=== PATIENT | female | born 1990 | race Caucasian/White ===

== ENCOUNTER 2023-09-17 21:39 | Outpatient (REF) | payer BC, SELFPAY | END 2023-09-17 21:40 | disposition home or self-care (01) | LOC: LAB 21:39 | PROVIDERS: PCP Family Medicine; Visit Provider Obstetrics & Gynecology | DX: Z01.419 Encounter for gynecological examination (general) (routine) without abnormal findings (principal) | CPT/HCPCS: 88175 ==

== ENCOUNTER 2023-09-24 08:44 | Outpatient (OUT) | payer BC, SELFPAY ==
--- NOTE | 2023-09-24 08:52 | US_ITS ---
The [address] [address] Patient Name: BROOK WILD MRN: [id number] date: 1990 Sex: F Assigned Patient Location: [facility] Current Patient Location: Accession/Order Number: [id number] Exam Date: 09/24/2023 08:52 Report Date: 09/26/2023 04:59 At the request of: TREVOR MAHARAJ Procedure: US pelvis w/ transvaginal EXAMINATION: US pelvis w/ transvaginal HISTORY: PELVIC PAIN , intermittent COMPARISON: Ultrasound pelvis 07/09/2022 TECHNIQUE: Transabdominal and/or transvaginal sonographic examination was performed as indicated by examination type. FINDINGS: UTERUS: Normal size and appearance. Uterus size: 8.1 x 4.1 x 4.4 cm ENDOMETRIUM: No definite IUD seen within the endometrial cavity, however, there is posterior shadowing suggestive of an IUD. Endometrium is normal thickness, 8 mm. Endometrial thickness: 8 mm RIGHT OVARY: Normal size and appearance. Blood flow present within ovary on color Doppler. Ovary size: 2.8 x 1.1 x 2.7 cm LEFT OVARY: Normal size and appearance. Blood flow present within ovary on color Doppler. Ovary size: 2.4 x 2.5 x 2.8 cm CUL-DE-SAC: Unremarkable. No significant free fluid. BLADDER: Unremarkable. OTHER: None. US/US pelvis w/ transvaginal IMPRESSION: 1. An IUD is not clearly identified within the uterus, however, there is posterior shadowing from the uterus which is new compared prior study and is most suggestive of an IUD within the endometrial cavity. Consider follow-up ultrasound in 2-[address] imaging of the pelvis if indicated. 2. Unremarkable ovaries. Electronically authenticated by: TIAGO VIEYRA Date: 09/26/2023 04:59
--- OUTSIDE RECORDS SUMMARY | 2023-09-24 08:57 | XMS_ITS ---
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 Name Role Phone Radsugey, Edward Admitting Unavailable Radatz, Hermelindoward Attending Unavailable CanCarri christianson Primary Care Unavailable Radatz, Edward Admitting Unavailable Radatz, Hermelindoward Attending Unavailable Can, Carri Nielsen Primary Care Unavailable BRYANT, DR FORTINO Amador Consulting Unavailable CAN ., DR CARRI Nielsen Primary Care Unavailable HAY ., DR ANDRADE Admitting Unavailable HAY ., DR ANDRADE Attending Unavailable HAY ., DR ANDRADE Consulting Unavailable DORIAN SHARMA Consulting Unavailable CAROL ANN ., DR MURRAY Attending Unavailable CAROL ANN ., DR MURRAY Admitting Unavailable CAN ., DR CARRI Nielsen Primary Care Unavailable CAROL ANN ., DR MURRAY Attending Unavailable CAROL ANN ., DR MURRAY Admitting Unavailable CAROL ANN ., DR MURRAY Consulting Unavailable CAN ., DR CARRI Nielsen Primary Care Unavailable CAROL ANN ., DR MURRAY Attending Unavailable CAROL ANN ., DR MURRAY Admitting Unavailable CAROL ANN ., DR MURRAY Consulting Unavailable CAN ., DR CARRI Nielsen Primary Care Unavailable KENNY PATEL Consulting Unavailable TOY CHOW Consulting Unavailable CAROL ANN ., DR MURRAY Attending Unavailable CAROL ANN ., DR MURRAY Admitting Unavailable CAROL ANN ., DR MURRAY Consulting Unavailable CAN ., DR CARRI Nielsen Primary Care Unavailable CAROL ANN ., DR MURRAY Attending Unavailable CAROL ANN ., DR MURRAY Admitting Unavailable CAROL ANN ., DR MURRAY Consulting Unavailable CAN ., DR CARRI Nielsen Primary Care Unavailable CAROL ANN ., DR MURRAY Attending Unavailable CAROL ANN ., DR MURRAY Admitting Unavailable CAN ., DR CARRI Nielsen Primary Care Unavailable CAROL ANN ., DR MURRAY Consulting Unavailable CAROL ANN ., DR MURRAY Attending Unavailable CAROL ANN ., DR MURRAY Admitting Unavailable CAN ., DR CARRI Nielsen Primary Care Unavailable CAROL ANN ., DR MURRAY Consulting Unavailable CAROL ANN ., DR MURRAY Attending Unavailable CAROL ANN ., DR MURRAY Admitting Unavailable CAROL ANN ., DR MURRAY Consulting Unavailable CAN ., DR CARRI Nielsen Primary Care Unavailable CAROL ANN ., DR MURRAY Attending Unavailable CAROL ANN ., DR MURRAY Admitting Unavailable CAN ., DR CARRI Nielsen Primary Care Unavailable CAROL ANN ., DR MURRAY Consulting Unavailable ZIEBER, DR TIAGO Amador Consulting Unavailable REQUEST, DR CLARISSA LISTED Consulting Unavailmohan HURTADO, DR FORTINO Amador Consulting Unavailable BRYANT, DR FORTINO Amador Attending Unavailable STEF ., DR CARRI Nielsen Primary Care Unavailable BRYANT, DR FORTINO Amador Admitting Unavailable LEROY, ADITYA Consulting Unavailable LEROY, ADITYA Attending Unavailable LEROY, ADITYA Admitting Unavailable CAN ., DR CARRI Nielsen Primary Care Unavailable Ludivina Mac Unavailable ALEK POSEY Attending Unavailable CAROL ANN, TREVOR Attending Unavailable Encounters Encounter Date Encounter Type Care Provider Facility Start: 09-17-2023 End: 09-17-2023 ambulatory TREVOR KILLIAN Not Available Start: 08-25-2023 End: 08-25-2023 ambulatory ALEK POSEY Not Available Start: 07-21-2023 End: 07-21-2023 ambulatory [facility] Work Phone: Start: 07-21-2023 End: 07-21-2023 Patient encounter procedure [facility] Work Phone: Start: 09-06-2022 End: 09-06-2022 ambulatory Ludivina Mac Other [facility] Other Start: 09-06-2022 Office outpatient ne w 30 minutes Ludivina Mac [facility] Start: 07-09-2022 End: 07-10-[address] TREVOR KILLIAN . Facility:[facility] Start: 07-03-2022 Encounter for cervic al smear to confirm findings of recent normal smear following initial abnormal smear DR TREVOR KILLIAN . [facility] Start: 07-02-2022 End: 07-02-[address] TREVOR KILLIAN . Facility:[facility] Start: 07-02-2022 End: 07-02-2022 Encounter for cervical smear to confirm findings of recent normal smear following initial abnormal smear DR TREVOR KILLIAN . Facility:[facility] Start: 07-02-2022 End: 07-03-[address] TREVOR KILLIAN . Facility:[facility] Start: 03-28-2022 End: 03-28-[address] FORTINO HURTADO Facility:[facility] Start: 03-05-2022 End: 03-05-[address] TREVOR KILLIAN . Facility:[facility] Start: 11-09-2021 End: 11-09-[address] TREVOR KILLIAN . Facility:[facility] Start: 11-06-2021 Encounter for preprocedural laboratory examination DR TREVOR KILLIAN . [facility] Start: 11-03-2021 End: 11-03-2021 ambulatory ADITYA HARPER Facility:[facility] Start: 10-31-2021 End: 11-01-[address] TREVOR KILLIAN . Facility:[facility] Start: 10-31-2021 End: 11-01-2021 Encounter for preprocedural laboratory examination DR TREVOR KILLIAN . Facility:[facility] Start: 10-30-2021 Encounter for other preprocedural examination DR TREVOR KILLIAN . [facility] Start: 10-30-2021 End: 10-30-[address] FORTINO HURTADO Facility:[facility] Start: 10-25-2021 End: 10-26-[address] TREVOR KILLIAN . Facility:[facility] Start: 10-25-2021 End: 10-26-2021 Encounter for other preprocedural examination DR TREVOR KILLIAN . Facility:[facility] Start: 09-05-2021 End: 09-05-[address] TREVOR KILLIAN . Facility:[facility] Start: 07-12-2018 End: 07-12-2018 Emergency department patient visit [place] Facility:[facility] Start: 06-28-2018 End: 06-28-2018 Emergency department patient visit [place] Facility:[facility] Medications Current Medications Medication Drug Class(es) Dates Sig (Normalized) Sig (Original) amitriptyline hydrochloride 25 mg oral tablet (1 source) Tricyclic Antidepressant Start: 07-21-2023 Amitriptyline Active MG PO July 21, 2023 12:00am amoxicillin 500 mg oral capsule (3 sources) Penicillin-class Antibacterial Start: 07-21-2023 take 500 mg by mouth three times daily Amoxicillin Active 500 MG PO Three times daily 21 July 21, 2023 12:00am Start: 06-28-2018 End: 07-08-2018 take 500 mg by mouth three times daily Amoxicillin Discontinued 500 MG PO Three times daily 30 June 28, 2018 12:00am July 08, 2018 12:02am take 1 tablet by keisha th every eight hours Amoxicillin 500 MG TAKE 1 TABLET BY MOUTH EVERY 8 HOURS Oral for 10 Days Not-Taking Qkzrxsbdyi-Vztrdffnkynto-Ufv f (1 source) Start: 07-21-2023 Rhyiokmlwg-Wjlwcznjbpzpz-Jqp f Active TAB PO July 21, 2023 12:00am hydrocortisone 10 mg/ml / neomycin 3.5 mg/ml / polymyxin b [id number] unt/ml otic suspension (1 source) Aminoglycosid e Antibacterial , Polymyxin-cla ss Antibacterial , Corticosteroi d Start: 07-21-2023 Ukhtbrly-Zmiywpumi-Tx Active 3 DROPS OTIC Three times daily July 21, 2023 12:00am left ear methylPREDNISolone 4 mg oral tablet (2 sources) Corticosteroi d Start: 09-06-2022 methylPREDNISolone 4 MG as directed Orally for daily dose take half with breakfast, half with dinner for 6 days Sep, Active Completed/Discontinued Medications Medication Drug Class(es) Dates Sig (Normalized) Sig (Original) acetaminophen 325 mg / HYDROcodone bitartrate 5 mg oral tablet (1 source) Opioid Agonist take 1 tablet by mouth every four to six hours as needed HYDROcodone-Acetam inophen 5-325 MG TAKE 1 TABLET BY MOUTH EVERY 4-6 HOURS NEEDED Oral for 7 Days Not-Taking {21 (ethinyl estradiol 0.035 MG / norgestimate 0.25 MG Oral Tablet) / 7 (inert ingredients 1 MG Oral Tablet) } Pack [[place] 28 Day] (1 source) Progestin, Estrogen [place] 0.25-35 MG-MCG Oral for 28 Days Not-Taking fluconazole 150 mg oral tablet (2 sources) Azole Antifungal Start: 07-12-2018 End: 07-21-2023 take 1 tablet by mouth once Fluconazole (Diflucan) 150 mg tablet Discontinued 150 MG PO Once 1 July 12, 2018 12:00am July 21, 2023 1:08pm as a single dose take 1 tablet by keisha th once, then take 1 tablet by mouth every week Fluconazole 200 MG TAKE 1 TABLET BY MOUT H as a one time dose may repeat in 1 (ONE) week Oral for 1 Days Not-Taking ibuprofen 600 mg oral tablet (1 source) Nonsteroidal Anti-inflammatory Drug Start: 06-28-2018 End: 07-12-2018 Ibuprofen Discontinued 600 MG PO every 6 to 8 hours June 28, 2018 12:00am July 12, 2018 1:04pm medroxyPROGESTERone acetate 10 mg oral tablet (1 source) Progestin medroxyPROGESTER one Acetate 10 MG Oral for 14 Days Not-Taking nitrofurantoin, macrocrystals 100 mg oral capsule (1 source) Nitrofuran Antibacterial Start: 07-12-2018 End: 07-21-2023 take 1 capsule by mouth twice daily at mealtime Nitrofurantoin Macrocrystal (Macrodantin) 100 mg capsule Discontinued 100 MG PO Twice daily July 12, 2018 12:00am July 21, 2023 1:08pm must administer with a meal/food phenazopyridine hydrochloride 200 mg oral tablet (1 source) Start: 07-12-2018 End: 07-14-2018 take 1 tablet by mouth three times daily Phenazopyridine (Pyridium) 200 mg tablet Discontinued 200 MG PO Three times daily 6 2 July 12, 2018 12:00am July 14, 2018 12:02am Payers Date Payer Category Payer Self-pay 1990 Unknown [id number] 1990 Unknown [id number] 1990 Unknown [id number] 1990 Unknown [id number] 1990 Unknown [id number] [id number] 1990 Unknown [id number] [id number] 1990 Unknown [id number] [id number] 1990 Unknown [id number] [id number] 1990 Unknown [id number] [id number] 1990 Unknown [id number] [id number] 1990 Unknown [id number] [id number] 1990 Unknown [id number] [id number] 1990 Unknown [id number] [id number] 1991 Unknown [id number] [id number] 1959 Unknown [id number] 1958 Unknown [id number] Medicaid [facility] [id number] Unknown [id number] Unknown [id number] Problems Active Problems Problem Classification Problem Date Documented Date Episodic/Chronic Cancer of cervix (11 sources) Atypical squamous cells of undetermined significance on cytologic smear of cervix (ASC-US); Translations: [Atypical squamous cells cannot exclude high grade squamous intraepithelial lesion on cytologic smear of cervix (ASC-H)] Onset: 10-30-2021 Episodic Menstrual disorders (6 sources) Irregular menstruation, unspecified; Translations: [Excessive and frequent menstruation with regular cycle] Onset: 01-28-2022 Chronic Other female genital disorders (1 source) Unspecified dyspareunia; Translations: [UNSPECIFIED DYSPAREUNIA] Onset: 01-28-2022 Chronic Other upper respiratory infections (2 sources) Acute pharyngitis, unspecified; Translations: [ACUTE PHARYNGITIS UNSPECIFIED] Onset: 11-01-2021 Episodic Otitis media and related conditions (2 sources) Otitis media, unspecified, left ear; Translations: [Other acute nonsuppurative otitis media, bilateral] Onset: 11-05-2021 Episodic Unclassified (1 source) CONTACT W/AND (SUSP) EXPOS COVID-19; Translations: [CONTACT W/AND (SUSP) EXPOS COVID-19] Onset: 11-06-2021 Past or Other Problems Problem Classification Problem Date Documented Date Episodic/Chronic Abdominal pain (4 sources) Left lower quadrant pain; Translations: [LEFT LOWER QUADRANT PAIN] Onset: 03-28-2022 Episodic Fever of unknown origin (4 sources) Fever, unspecified; Translations: [FEVER UNSPECIFIED] Onset: 10-30-2021 Episodic Immunizations and screening for infectious disease (1 source) Encounter for screening for human papillomavirus (HPV); Translations: [ENC SCREENING HUMAN PAPILLOMAVIRUS] Onset: 09-10-2021 Episodic Other ear and sense organ disorders (3 sources) Otalgia, left ear; Translations: [OTALGIA LEFT EAR] Onset: 11-03-2021 Episodic Other screening for suspected conditions (not mental disorders or infectious disease) (4 sources) Encounter for screening for malignant neoplasm of cervix; Translations: [ENC SCREENING MALIG NEOPLASM CERV] Onset: 09-05-2021 Episodic Sexually transmitted infections (not HIV or hepatitis) (1 source) Cervical high risk human papillomavirus (HPV) DNA test positive; Translations: [CERVICAL HIGH RISK HPV DNA TEST POS] Onset: 03-09-2022 Episodic Results Test Name Value Interpretation Reference Range Facility [facility] 09-06-2022 S. pyogenes Org specific cx Ql (Throat) Negative [facility] Other [facility] Other FSHon 07-10-2022 FSH 7.5 mIU/mL Normal [facility] Comment on above: Result Comment: Adul t Female: Follicular phase 3.5 - 12.5 Ovulation phase 4.7 - 21.5 Luteal phase 1.7 - 7.7 Postmenopausal 25.8 - 134.8 Performed By: #### C VDTBH #### [facility] [address] [place] [address] Dr. Joy Vargas LUTEINIZING HORMONE (LH)on 0 07-10-2022 LH 19.8 mIU/mL Normal [facility] Comment on above: Result Comment: Adul t Female: Follicular phase 2.4 - 12.6 Ovulation phase 14.0 - 95.6 Luteal phase 1.0 - 11.4 Postmenopausal 7.7 - 58.5 Performed By: #### L BCLH #### [facility] [address] [place] [address] Dr. Joy Vargas PROLACTINon 07-10-2022 Prolactin 8.0 ng/mL Normal 4.8-23.3 [facility] Comment on above: Performed By: #### C VDTBH #### [facility] [address] [place] [address] Dr. Joy Vargas CBC AUTO DIFFon 07-09-2022 BASO # 0.1 103/ul Normal 0.0-0.1 [facility] Comment on above: Performed By: #### C VDTBH #### [facility] [address] [place] [address] Dr. Joy Vargas Basophils/100 WBC (Bld) 0.6 % Normal 0.2-2.0 [facility] Comment on above: Performed By: #### C VDTBH #### [facility] [address] [place] [address] Dr. Joy Vargas EO # 0.1 103/ul Normal 0.0-0.7 [facility] Comment on above: Performed By: #### C VDTBH #### [facility] [address] [place] [address] Dr. Joy Vargas Eosinophils/100 WBC (Bld) 1.1 % Normal 0.9-7.0 [facility] Comment on above: Performed By: #### C VDTBH #### [facility] [address] [place] [address] Dr. Joy Vargas Erythrocyte distribution width (RBC) [Ratio] 14.0 % Normal 11.0-15.0 [facility] Comment on above: Performed By: #### C VDTBH #### [facility] [address] [place] [address] Dr. Joy Vargas Hematocrit (Bld) [Volume fraction] 36.8 % Normal 36.0-48.0 [facility] Comment on above: Performed By: #### C VDTBH #### [facility] [address] [place] [address] Dr. Joy Vargas Hemoglobin (Bld) [Mass/Vol] 12.0 g/dL Normal 12.0-16.0 [facility] Comment on above: Performed By: #### C VDTBH #### [facility] [address] [place] [address] Dr. Joy Vargas IG # 0.01 10e3/ul Normal 0.00-0.03 [facility] Comment on above: Performed By: #### C VDTBH #### [facility] [address] [place] [address] Dr. Joy Vargas IG % 0.1 % Normal 0.0-0.5 [facility] Comment on above: Performed By: #### C VDTBH #### [facility] [address] [place] [address] Dr. Joy Vargas LYMPH # 2.6 103/ul Normal 1.2-3.8 [facility] Comment on above: Performed By: #### C VDTBH #### [facility] [address] [place] [address] Dr. Joy Vargas Lymphocytes/100 WBC (Bld) 32.2 % Normal 20.5-60.0 [facility] Comment on above: Performed By: #### C VDTBH #### [facility] [address] [place] [address] Dr. Joy Vargas MANUAL DIFF REQ NO Normal [facility] Comment on above: Performed By: #### C VDTBH #### [facility] [address] [place] [address] Dr. Joy Vargas MCH (RBC) [Entitic mass] 27.0 pg Normal 26.7-34.[address] [facility] Comment on above: Performed By: #### C VDTBH #### [facility] [address] [place] [address] Dr. Joy Vargas MCHC (RBC) [Mass/Vol] 32.6 g/dL Normal 29.9-35.[address] [facility] Comment on above: Performed By: #### C VDTBH #### [facility] [address] [place] [address] Dr. Joy Vargas MCV (RBC) [Entitic vol] 82.9 fL Normal 81.0-99.[address] [facility] Comment on above: Performed By: #### C VDTBH #### [facility] [address] [place] [address] Dr. Joy Vargas MONO # 0.5 103/ul Normal 0.3-0.[address] [facility] Comment on above: Performed By: #### C VDTBH #### [facility] [address] [place] [address] Dr. Joy Vargas Monocytes/100 WBC (Bld) 5.8 % Normal 1.7-12.[address] [facility] Comment on above: Performed By: #### C VDTBH #### [facility] [address] [place] [address] Dr. Joy Vargas NEUT # 4.8 103/ul Normal 1.4-6.[address] [facility] Comment on above: Performed By: #### C VDTBH #### [facility] [address] [place] [address] Dr. Joy Vargas Neutrophils/100 WBC (Bld) 60.2 % Normal 43.0-75.[address] [facility] Comment on above: Performed By: #### C VDTBH #### [facility] [address] [place] [address] Dr. oJy Vargas Platelet mean volume (Bld) [Entitic vol] 10.0 fL Normal 9.5-13.[address] [facility] Comment on above: Performed By: #### C VDTBH #### [facility] [address] [place] [address] Dr. Joy Vargas PLT 321 103/ul Normal 150-450 [facility] Comment on above: Performed By: #### C VDTBH #### [facility] [address] [place] [address] Dr. Joy Vargas RBC 4.44 106/ul Normal 4.20-5.40 [facility] Comment on above: Performed By: #### C VDTBH #### [facility] [address] [place] [address] Dr. Joy Vargas WBC 7.9 103/ul Normal 4.0-11.0 [facility] Comment on above: Performed By: #### C VDTBH #### [facility] [address] [place] [address] Dr. Joy Vargas FREE T4on 07-09-2022 Free T4 [Mass/Vol] 0.99 ng/dL Normal 0.76-1.46 [facility] Comment on above: Performed By: #### C VDTBH #### [facility] [address] [place] [address] Dr. Joy Vargas Pap IG,rfx Aptima HPV all pt hon 07-09-2022 . . Normal [facility] Comment on above: Performed By: #### C VDTBH #### [facility] [address] [place] [address] Dr. Joy Vargas DIAGNOSIS: Comment Normal [facility] Comment on above: Result Comment: NEGA TIVE FOR INTRAEPITHELIAL LESION OR MALIGNANCY. Performed By: #### C VDTBH #### [facility] [address] [place] [address] Dr. Joy Vargas Methodology: Comment Normal [facility] Comment on above: Result Comment: This liquid based ThinPrep(R) pap test was screened with the use of an image guided system. Performed By: #### C VDTBH #### [facility] [address] [place] [address] Dr. Joy Vargas Note: Comment Normal [facility] Comment on above: Result Comment: The Pap smear is a screening test designed to aid in the detection of premalignant and malignant conditions of the uterine cervix. It is not a diagnostic procedure and should not be used as the sole means of detecting cervical cancer. Both false-positive and false-negative reports do occur. . Performed By: #### C VDTBH #### [facility] [address] [place] [address] Dr. Joy Vargas Performed by: Comment Normal [facility] Comment on above: Result Comment: James Tony, Exchange Architect (ASCP) Performed By: #### C VDTBH #### [facility] [address] [place] [address] Dr. Joy Vargas Reflex Criteria: Comment Normal [facility] Comment on above: Result Comment: The HPV DNA reflex criteria were not met with this specimen result therefore, no HPV testing was performed. . Performed By: #### C VDTBH #### [facility] [address] [place] [address] Dr. Joy Vargas Specimen adequacy: Comment Normal [facility] Comment on above: Result Comment: Sati sfactory for evaluation. Endocervical and/or squamous metaplastic cells (endocervical component) are present. Performed By: #### C VDTBH #### [facility] [address] [place] [address] Dr. Joy Vargas TSHon 07-09-2022 TSH 1.495 uIU/mL Normal 0.358-3.740 [facility] Comment on above: Performed By: #### T #### [facility] [address] [place] [address] Dr. Joy Vargas US PELVIS AND TRANSVAGon US PELVIS AND TRANSVAG EXAMINATION: US PELVIS AND TRANSVAG HISTORY: Irregular periods COMPARISON: No relevant comparison available. TECHNIQUE: Transabdominal and transvaginal sonographic examination. FINDINGS: UTERUS: Normal size and appearance. Uterus size: 8.4 x 3.8 x 4.5 cm ENDOMETRIUM: Normal homogeneous appearance. Endometrial thickness: 5 mm RIGHT OVARY: Normal size and appearance. Duplex Doppler demonstrates normal waveform and flow; resistive index 0.4. Ovary size: 3.1 x 1.6 x 2.8 cm LEFT OVARY: Normal size and appearance. Blood flow present within ovary on color Doppler. Ovary size: 2.5 x 1.9 x 2.3 cm CUL-DE-SAC: Unremarkable. No significant free fluid. BLADDER: Unremarkable. OTHER: None. IMPRESSION: 1. Unremarkable pelvic ultrasound. No findings to account for patient's symptoms. Electronically authenticated by: TIAGO VIEYRA Date: 2022-07-09 13:57 Normal [facility] PREG QUANT HCGon 07-02-2022 HCG QUANT <1 Normal [facility] Comment on above: Performed By: #### P REGQNT #### [facility] [address] [place] [address] Dr. Joy Vargas HCG RANGE SEE BELOW Normal [facility] Comment on above: Result Comment: 5-50 0.2-1 WEEK 50-500 1-2 WEEKS 100-5,000 2-3 WEEKS 500-10,000 3-4 WEEKS 1,000-50,000 4-5 WEEKS 10,000-100,000 5-6 WEEKS 15,000-200,000 6-8 WEEKS 10,000-100,000 2-3 MONTHS Performed By: #### P REGQNT #### [facility] [address] [place] [address] Dr. Joy Vargas ER URINE PROFILEon 2 Bilirubin Ql (U) Negative Normal NEGATIVE [facility] Comment on above: Performed By: #### MIRANDA AMANDA ERUR #### [facility] [address] [place] [address] Dr. Joy Vargas Clarity (U) CLEAR Normal CLEAR [facility] Comment on above: Performed By: #### MIRANDA AMANDA ERUR #### [facility] [facility] [address] [place] [address] Dr. Joy Vargas Color (U) LT. YELLOW Normal YELLOW [facility] Comment on above: Performed By: #### MIRANDA AMANDA, ERUR #### [facility] [address] [place] [address] Dr. Joy ADEND A micrscopic examination will be performed if indicated. Normal [facility] Comment on above: Performed By: #### P REGU, UMICRO, ERUR #### [facility] [address] [address] [address] Joy Vargas Glucose Ql (U) Negative Normal NEGATIVE [facility] Comment on above: Performed By: #### P REGU, UMICRO, ERUR #### [facility] [address] [address] [address] Joy Vargas Hemoglobin Ql (U) TRACE-INTACT Abnormal NEGATIVE [facility] Comment on above: Performed By: #### P REGU, UMICRO, ERUR #### [facility] [address] [address] [address] Joy Vargas Ketones Ql (U) Negative Normal NEGATIVE [facility] Comment on above: Performed By: #### P REGU, UMICRO, ERUR #### [facility] [address] [address] [address] Joy Vargas LEUKOCYTES SMALL Abnormal NEGATIVE [facility] Comment on above: Performed By: #### P REGU, UMICRO, ERUR #### [facility] [address] [address] [address] Joy Vargas Nitrite Ql (U) Negative Normal NEGATIVE [facility] Comment on above: Performed By: #### P REGU, UMICRO, ERUR #### [facility] [address] [address] [address] Joy Vargas pH (U) 6.0 [pH] Normal 5-9 [facility] Comment on above: Performed By: #### P REGU, UMICRO, ERUR #### [facility] [address] [address] [address] Joy Vargas SPEC GRAVITY 1.025 Normal 1.005-<=1.025 [facility] Comment on above: Performed By: #### P REGU, UMICRO, ERUR #### [facility] [address] [address] [address] Joy Vargas UA PROTEIN Negative Normal NEGATIVE/ TRACE [facility] Comment on above: Performed By: #### P REGU, UMICRO, ERUR #### [facility] [address] [address] [address] Joy Vargas UR MICRO IND INDICATED Normal [facility] Comment on above: Performed By: #### P REGU, UMICRO, ERUR #### [facility] [address] [address] [address] Joy Vargas Urobilinogen Qn (U) 0.2 {Gerson'U}/dL Normal 0.2 - 1. [address] [facility] Comment on above: Performed By: #### P REGU, UMICRO, ERUR #### [facility] [address] [place] [address] Dr. Joy Vargas URon 03-28-2022 , QUAL Negative Normal NEGATIVE [facility] Comment on above: Performed By: #### P REGU, UMICRO, ERUR #### [facility] [address] [place] [address] Dr. Joy Vargas URINE MICROSCOPIC ONLYon BACTERIA TRACE Abnormal NONE SEEN [facility] Comment on above: Performed By: #### P REGU UMICRO, ERUR #### [facility] [address] [place] [address] Dr. Joy Vargas Bacteria identified Cx Nom (U) NOT INDICATED Normal [facility] Comment on above: Performed By: #### P REGU, UMICRO, ERUR #### [facility] [address] [place] [address] Dr. Joy Vargas CAST NONE SEEN Normal NONE SEEN [facility] Comment on above: Performed By: #### P REGU, UMICRO, ERUR #### [facility] [address] [place] [address] Dr. Joy Vargas Crystals LM Nom (Urine sed) NONE SEEN Normal NONE SEEN [facility] Comment on above: Performed By: #### P REGU, UMICRO, ERUR #### [facility] [address] [place] [address] Dr. Joy Vargas Epithelial cells LM Ql (Urine sed) FEW Abnormal NONE SEEN /RARE [facility] Comment on above: Performed By: #### P MIRANDA DIAZ, ERUR #### [facility] [address] [address] [address] Joy Vargas MUCOUS NONE SEEN Normal NONE SEEN [facility] Comment on above: Performed By: #### P MIRANDA DIAZ, ERUR #### [facility] [address] [address] [address] Joy Vargas RBC 0-2 Normal 0-2 [facility] Comment on above: Performed By: #### P MIRANDA DIAZ, ERUR #### [facility] [address] [address] [address] Joy Vargas WBC 0-2 Abnormal NONE SEEN [facility] Comment on above: Performed By: #### P MIRANDA DIAZ, ERUR #### [facility] [address] [address] [address] Joy Vargas XR ABD FLAT UP_PA Jeffrey 03-28 XR ABD FLAT UP_PA CH EXAM: XR ABD FLAT UP_PA CH REASON FOR EXAM: Female, 31 years, CONSTIPATION, UNSPECIFIED. TECHNIQUE: Supine and upright views of the abdomen and pelvis are performed, single frontal view of the chest is performed. COMPARISON: None. FINDINGS: The lungs are expanded and clear. Normal pleura. Normal size heart. Normal mediastinum and brodie. Normal visualized pulmonary arteries. Normal visualized aortic arch and descending thoracic aorta. Normal visualized thoracic spine. Normal visualized ribs, clavicles, and shoulders. There is a normal abdominal gas pattern. There is no demonstrated free abdominal air. The visualized liver, spleen, and kidneys are grossly normal in size and morphology. Normal soft tissues. Normal osseous structures. There are surgical clips in the right lower quadrant, and a single surgical clip within the pelvis. IMPRESSION: Normal examination of the chest, abdomen and pelvis. Electronically authenticated by: DORIAN SHARMA Date: 2022-03-28 20:31 Normal [facility] Pap IG,rfx Aptima HPV all pt hon 03-15-2022 . . Normal [facility] Comment on above: Performed By: #### C VDTBH #### [facility] [address] [place] [address] Dr. Joy Vargas DIAGNOSIS: Comment Abnormal [facility] Comment on above: Result Comment: EPIT HELIAL CELL ABNORMALITY. ATYPICAL SQUAMOUS CELLS OF UNDETERMINED SIGNIFICANCE (ASC-US). Performed By: #### C VDTBH #### [facility] [address] [place] [address] Dr. Joy Vargas Electronically signed by: Comment Normal [facility] Comment on above: Result Comment: Bora Yu MD, Pathologist Performed By: #### C VDTBH #### [facility] [address] [place] [address] Dr. Joy Vargas HPV Aptima Negative Normal Negative [facility] Comment on above: Result Comment: This nucleic acid amplification test detects fourteen high-risk HPV types (16,18,31,33,35,39,45,51,52,56,58,59,66,68) without differentiation. Performed By: #### C VDTBH #### [facility] [address] [place] [address] Dr. Joy Vargas Methodology: Comment Normal [facility] Comment on above: Result Comment: This liquid based ThinPrep(R) pap test was screened with the use of an image guided system. Performed By: #### C VDTBH #### [facility] [address] [place] [address] Dr. Joy Vargas Note: Comment Normal [facility] Comment on above: Result Comment: The Pap smear is a screening test designed to aid in the detection of premalignant and malignant conditions of the uterine cervix. It is not a diagnostic procedure and should not be used as the sole means of detecting cervical cancer. Both false-positive and false-negative reports do occur. . Performed By: #### C VDTBH #### [facility] [address] [place] [address] Dr. Joy Vargas Pathologist Provided ICD10 Comment Normal [facility] Comment on above: Result Comment: R87. 610 Performed By: #### C VDTBH #### [facility] [address] [place] [address] Dr. Joy Vargas Performed by: Comment Normal [facility] Comment on above: Result Comment: Sera Song, Exchange Architect (ASCP) Performed By: #### C VDTBH #### [facility] [address] [place] [address] Dr. Joy Vargas Reflex Criteria: Comment Normal [facility] Comment on above: Result Comment: See below for HPV testing results. . Performed By: #### C VDTBH #### [facility] [address] [place] [address] Dr. Joy Vargas Specimen adequacy: Comment Normal [facility] Comment on above: Result Comment: Sati sfactory for evaluation. Endocervical and/or squamous metaplastic cells (endocervical component) are present. Performed By: #### C VDTBH #### [facility] [address] [place] [address] Dr. Joy Vargas CBC AUTO DIFFon 11-09-2021 BASO # 0.0 103/ul Normal 0.0-0.1 [facility] Comment on above: Performed By: #### C BC #### [facility] [address] [place] [address] Dr. Joy Vargas Basophils/100 WBC (Bld) 0.3 % Normal 0.2-2.0 [facility] Comment on above: Performed By: #### C BC #### [facility] [address] [place] [address] Dr. Joy Vargas EO # 0.1 103/ul Normal 0.0-0.7 [facility] Comment on above: Performed By: #### C BC #### [facility] [address] [place] [address] Dr. Joy Vargas Eosinophils/100 WBC (Bld) 0.9 % Normal 0.9-7.[address] [facility] Comment on above: Performed By: #### C BC #### [facility] [address] [place] [address] Dr. Joy Vargas Erythrocyte distribution width (RBC) [Ratio] 12.8 % Normal 11.0-15.0 [facility] Comment on above: Performed By: #### C BC #### [facility] [address] [place] [address] Dr. Joy Vargas Hematocrit (Bld) [Volume fraction] 37.2 % Normal 36.0-48.0 [facility] Comment on above: Performed By: #### C BC #### [facility] [address] [place] [address] Dr. Joy Vargas Hemoglobin (Bld) [Mass/Vol] 12.4 g/dL Normal 12.0-16.0 [facility] Comment on above: Performed By: #### C BC #### [facility] [address] [place] [address] Dr. Joy Vargas IG # 0.02 10e3/ul Normal 0.00-0.03 [facility] Comment on above: Performed By: #### C BC #### [facility] [address] [place] [address] Dr. Joy Vargas IG % 0.2 % Normal 0.0-0.5 [facility] Comment on above: Performed By: #### C BC #### [facility] [address] [place] [address] Dr. Joy Vargas LYMPH # 2.7 103/ul Normal 1.2-3.8 [facility] Comment on above: Performed By: #### C BC #### [facility] [address] [place] [address] Dr. Joy Vargas Lymphocytes/100 WBC (Bld) 29.9 % Normal 20.5-60.0 [facility] Comment on above: Performed By: #### C BC #### [facility] [address] [place] [address] Dr. Joy Vargas MANUAL DIFF REQ NO Normal [facility] Comment on above: Performed By: #### C BC #### [facility] [address] [place] [address] Dr. Joy Vargas MCH (RBC) [Entitic mass] 27.9 pg Normal 26.7-34.0 [facility] Comment on above: Performed By: #### C BC #### [facility] [address] [address] [address] Joy Vargas MCHC (RBC) [Mass/Vol] 33.3 g/dL Normal 29.9-35.[address] [facility] Comment on above: Performed By: #### C BC #### [facility] [address] [place] [address] Dr. Joy Vargas MCV (RBC) [Entitic vol] 83.8 fL Normal 81.0-99.[address] [facility] Comment on above: Performed By: #### C BC #### [facility] [address] [place] [address] Dr. Joy Vargas MONO # 0.6 103/ul Normal 0.3-0.[address] [facility] Comment on above: Performed By: #### C BC #### [facility] [address] [place] [address] Dr. Joy Vargas Monocytes/100 WBC (Bld) 6.2 % Normal 1.7-12.[address] [facility] Comment on above: Performed By: #### C BC #### [facility] [address] [place] [address] Dr. Joy Vargas NEUT # 5.7 103/ul Normal 1.4-6.[address] [facility] Comment on above: Performed By: #### C BC #### [facility] [address] [place] [address] Dr. Joy Vargas Neutrophils/100 WBC (Bld) 62.5 % Normal 43.0-75.[address] [facility] Comment on above: Performed By: #### C BC #### [facility] [address] [place] [address] Dr. Joy Vargas Platelet mean volume (Bld) [Entitic vol] 8.9 fL Critically low 9.5-13.[address] [facility] Comment on above: Performed By: #### C BC #### [facility] [address] [place] [address] Dr. Joy Vargas PLT 344 103/ul Normal 150-[address] [facility] Comment on above: Performed By: #### C BC #### [facility] [address] [place] [address] Dr. Joy Vargas RBC 4.44 106/ul Normal 4.20-5.[address] [facility] Comment on above: Performed By: #### C BC #### [facility] [address] [place] [address] Dr. Joy Vargas WBC 9.0 103/ul Normal 4.0-11.0 [facility] Comment on above: Performed By: #### C BC #### [facility] [address] [place] [address] Dr. Joy Vargas PREG HCG QUALon 11-09-2021 , QUAL Negative Normal NEGATIVE [facility] Comment on above: Performed By: #### C VDTBH #### [facility] [address] [place] [address] Dr. Joy Vargas Covid-19 PCR (CVDTBH)on 10-06 SARS-CoV-2 (COVID-19) RNA NATHAN+probe Ql (Unsp spec) Not detected Normal NOT DETECTED [facility] Comment on above: Result Comment: This test is not yet approved or cleared by the [place] FDA. When there are no FDA-approved or cleared tests available, and other criteria are met, FDA can make tests available under an emergency access mechanism called an Emergency Use Authorization (EUA). The EUA for this test is supported by the [place] Justice of Health and Human Service's (HHS's) declaration that circumstances exist to justify the emergency use of in vitro diagnostics for the detection and/or diagnosis of the virus that causes COVID-19. This EUA will remain in effect (meaning this test can be used) for the duration of the COVID-19 declaration justifying emergency of IVDs, unless it is terminated or revoked by FDA (after which the test may no longer be used). When diagnostic testing is negative, the possibility of a false negative should be considered in the context of a patient's recent exposures and the presence of clinical signs and symptoms consistent with SARS-CoV-2. Performed By: #### C VDTBH #### [facility] [address] [place] [address] Dr. Joy Vargas Covid-19 PCR (CVDTBH)on 07-2 6-2022 SARS-CoV-2 (COVID-19) RNA NATHAN+probe Ql (Unsp spec) Not detected Normal NOT DETECTED [facility] Comment on above: Result Comment: When diagnostic testing is negative, the possibility of a false negative should be considered in the context of a patient's recent exposures and the presence of clinical signs and symptoms consistent with SARS-CoV-2. This test is not yet approved or cleared by the [place] FDA. When there are no FDA-approved or cleared tests available, and other criteria are met, FDA can make tests available under an emergency access mechanism called an Emergency Use Authorization (EUA). The EUA for this test is supported by the [place] of Health and Human Service's declaration that circumstances exist to justify the emergency use of in vitro diagnostics for the detection and/or diagnosis of the virus that causes COVID-19. This EUA will remain in effect for the duration of the COVID-19 declaration justifying emergency of IVDs, unless it is terminated or revoked by the FDA (after which the test may no longer be used). Performed By: #### C VDTB #### [facility] [address] [place] [address] Dr. Joy Vargas PAP ACOG PANEL 2: 21 to 29on 09-10-2021 . . Normal [facility] Comment on above: Performed By: #### [id number] #### [facility] [address] [place] [address] Dr. Joy Vargas Age Gdln ACOG Testing 21-29 Normal [facility] Comment on above: Performed By: #### [id number] #### [facility] [address] [place] [address] Dr. Joy Vargas DIAGNOSIS: Comment Abnormal [facility] Comment on above: Result Comment: EPIT HELIAL CELL ABNORMALITY. ATYPICAL SQUAMOUS CELLS, CANNOT EXCLUDE HIGH-GRADE SQUAMOUS INTRAEPITHELIAL LESION (ASC-H). Performed By: #### [id number] #### [facility] [address] [place] [address] Dr. Joy Vargas Electronically signed by: Comment Normal [facility] Comment on above: Result Comment: Arianna Nina MD, Pathologist Performed By: #### [id number] #### [facility] [address] [address] [address] Joy Vargas Methodology: Comment Normal [facility] Comment on above: Result Comment: This liquid based ThinPrep(R) pap test was screened with the use of an image guided system. Performed By: #### [id number] #### [facility] [address] [address] [address] Joy Vargas Note: Comment Normal [facility] Comment on above: Result Comment: The Pap smear is a screening test designed to aid in the detection of premalignant and malignant conditions of the uterine cervix. It is not a diagnostic procedure and should not be used as the sole means of detecting cervical cancer. Both false-positive and false-negative reports do occur. . Performed By: #### [id number] #### [facility] [address] [place] [address] Dr. Joy Vargas Pathologist Provided ICD10 Comment Normal [facility] Comment on above: Result Comment: [id number] Performed By: #### [id number] #### [facility] [address] [place] [address] Dr. Joy Vargas Performed by: Comment Normal [facility] Comment on above: Result Comment: Aileen Meza, Exchange Architect (ASCP) Performed By: #### [id number] #### [facility] [address] [place] [address] Dr. Joy Vargas Recommendation: Comment Abnormal [facility] Comment on above: Result Comment: Sugg est follow up as clinically appropriate. Performed By: #### [id number] #### [facility] [address] [place] [address] Dr. Joy Vargas Reflex Criteria: Comment Normal [facility] Comment on above: Result Comment: The HPV DNA reflex criteria were not met with this specimen result therefore, no HPV testing was performed. . Performed By: #### [id number] #### [facility] [address] [place] [address] Dr. Joy Vargas Specimen adequacy: Comment Normal [facility] Comment on above: Result Comment: Sati sfactory for evaluation. Endocervical and/or squamous metaplastic cells (endocervical component) are present. Performed By: #### [id number] #### [facility] [address] [address] [address] Joy Vargas Dipstick and Microscopicon 0 07-12-2018 Appearance Nom (U) Clear Normal Clear [facility] Comment on above: Order Comment: Name Collection Type: Clean-Voided Midstream Performed By: #### U HCG, CUU, ADDONUAPLUS #### [facility] [address] Bacteria LM.HPF #/area (Urine sed) None Seen Normal None Seen [facility] Comment on above: Order Comment: Name Collection Type: Clean-Voided Midstream Performed By: #### U HCG, CUU, ADDONUAPLUS #### [facility] [address] [place] [address] [place] Bilirubin,Urine Negative Normal Negative [facility] Comment on above: Order Comment: Name Collection Type: Clean-Voided Midstream Performed By: #### U HCG, CUU, ADDONUAPLUS #### [facility] [address] [place] [address] [place] Color Nom (U) Yellow Normal Yellow [facility] Comment on above: Order Comment: Name Collection Type: Clean-Voided Midstream Performed By: #### U HCG, CUU, ADDONUAPLUS #### [facility] [address] [place] [address] [place] Glucose Ql (U) Normal Normal Normal [facility] Comment on above: Order Comment: Name Collection Type: Clean-Voided Midstream Performed By: #### U HCG, CUU, ADDONUAPLUS #### [facility] [address] [place] [address] [place] Hyaline Casts,Urine 9-19 High 0-8 [facility] Comment on above: Order Comment: Name Collection Type: Clean-Voided Midstream Performed By: #### U HCG, CUU, ADDONUAPLUS #### [facility] [address] [place] [address] [place] Ketones Ql (U) Negative Normal Negative [facility] Comment on above: Order Comment: Name Collection Type: Clean-Voided Midstream Performed By: #### U HCG, CUU, ADDONUAPLUS #### [facility] [address] [place] [address] Leukocyte esterase Test strip Ql (U) 3+ High Negative [facility] Comment on above: Order Comment: Name Collection Type: Clean-Voided Midstream Performed By: #### U HCG, CUU, ADDONUAPLUS #### [address] Nitrite,Urine Negative Normal Negative [facility] Comment on above: Order Comment: Name Collection Type: Clean-Voided Midstream Performed By: #### U HCG, CUU, ADDONUAPLUS #### [address] Occult Blood,Urine 2+ High Negative [facility] Comment on above: Order Comment: Name Collection Type: Clean-Voided Midstream Performed By: #### U HCG, CUU, ADDONUAPLUS #### [address] pH (U) 5.5 [pH] Normal 5.0-9.0 [facility] Comment on above: Order Comment: Name Collection Type: Clean-Voided Midstream Performed By: #### U HCG, CUU, ADDONUAPLUS #### [facility] [address] [place] [address] Protein mass conc (U) Trace High Negative [facility] Comment on above: Order Comment: Name Collection Type: Clean-Voided Midstream Performed By: #### U HCG, CUU, ADDONUAPLUS #### [facility] [address] [place] [address] [place] RBC LM.HPF #/area (Urine sed) 20-49 High 0-4 [facility] Comment on above: Order Comment: Name Collection Type: Clean-Voided Midstream Performed By: #### U HCG, CUU, ADDONUAPLUS #### [facility] [address] [place] [address] Specificy [place],Urine 1.023 Normal 1.001-1.030 [facility] Comment on above: Order Comment: Name Collection Type: Clean-Voided Midstream Performed By: #### U HCG, CUU, ADDONUAPLUS #### [facility] [address] [place] [address] Squamous Epithelial Cell,Urine 1-2 Normal 0-2 [facility] Comment on above: Order Comment: Name Collection Type: Clean-Voided Midstream Performed By: #### U HCG, CUU, ADDONUAPLUS #### [facility] [address] [place] [address] Urobilinogen,Urine Normal Normal Normal [facility] Comment on above: Order Comment: Name Collection Type: Clean-Voided Midstream Performed By: #### U HCG, CUU, ADDONUAPLUS #### [facility] [address] [place] [address] WBC LM.HPF #/area (Urine sed) 50-100 High 0-4 [facility] Comment on above: Order Comment: Name Collection Type: Clean-Voided Midstream Performed By: #### U HCG, CUU, ADDONUAPLUS #### [facility] [address] [place] [address] HCG,Urineon 07-12-2018 HCG.beta subunit ( test) Ql (U) Negative Normal Negative [facility] Comment on above: Order Comment: Name Collection Type: Clean-Voided Midstream Result Comment: PERF ORMED BY: [address] [place] [address] PATHOLOGIST RN ADMISSION AMEYA ERWIN M.D. Performed By: #### U HCG, CUU, ADDONUAPLUS #### [facility] [address] [place] [address] Urine Cultureon 07-12-2018 Bacteria identified Cx Nom (U) ORGANISM: Escherichia coli (O:ESCCOL) [place] Count 75,000 Aerobic ZEENAT Charge (Neg) ---- SUSCEPTIBILITY --- ORGANISM: O:ESCCOL ANTIBIOTIC INTERPRETATION ZEENAT Amikacin S <16 Amoxacillin/K Clavulanate I 1616/8 Ampicillin R >16 Ampicillin/Sulbactam R >16/8 Aztreonam S <8 Cefazolin I 16 Cefepime S <8 Cefotetan S <16 Ceftazidime S <1 Ceftriaxone S <8 Cefuroxime S <4 Ciprofloxacin S <1 Ertapenem S <2 Gentamicin S <4 Levofloxacin S <2 Meropenem S <4 Nitrofurantoin S <32 Piperacillin/Tazobact am S <16 Tetracycline S <4 Tobramycin S <4 Trimethoprim/Sulfamet hoxazole R > S = SUSCEPTIBLE I = INTERMEDIATE R = RESISTANT BLANK = DATA NOT AVAILABLE, OR DRUG NOT ADVISABLE OR TESTED R* = RESISTANCE DUE TO EXTENDED SPECTRUM BETA-LACTAMASES ESBL = EXTENDED SPECTRUM BETA-LACTAMASE TFG = THYMIDINE-DEPENDENT STRAIN VASU = BETA-LACTAMASE POSITIVE IB = INDUCIBLE BETA-LACTAMASE. APPEARS IN PLACE OF 'S' WITH SPECIES KNOWN TO POSSESS INDUCIBLE BETA-LACTAMASES. POTENTIALLY THEY MAY BECOME RESISTANT TO ALL B-LACTAM DRUGS. PERFORMED BY: [place] [id number] PATHOLOGIST RN ADMISSION AMEYA ERWIN M.D. [facility] Comment on above: Performed By: #### U CHARLA MORTON ADDONUAPLUS #### [place] [id number] [facility] Quick Strepon 06-28-2018 Quick Strep Quick Strep Results Positive for Group A Strep Antigen Reference range = Negative PERFORMED BY: [place] [id number] PATHOLOGIST RN ADMISSION AMEYA ERWIN M.D. [facility] Comment on above: Performed By: #### Q S #### [place] [id number] [facility] Social History Date Type Detail Facility Start: 07-12-2018 Tobacco smoking status NHIS Never smoked tobacco (finding) [facility] Start: 1990 Sex Assigned At Female [facility] Unknown if ever smoked [facility] Other Sex Assigned At Sex Assigned At Bir th [facility] Other Vital Signs Date Time Vital Sign Value Performing Clinician Facility 07-21-2023 13:06-0400 Body height 160.[address] [facility] 07-21-2023 13:06-0400 Body mass index (BMI) [Ratio] 35.4 kg/m2 [facility] 07-21-2023 13:06-0400 Body temperature 98.2 [degF] [facility] 07-21-2023 13:06-0400 Body weight 90.[address] [facility] 07-21-2023 13:06-0400 Heart rate 98 /min [facility] 07-21-2023 13:06-0400 Respiratory rate 16 /min [facility] 07-21-2023 13:06-0400 SaO2% (BldA) [Mass fraction] 98 % [facility] 09-06-2022 12:25-0400 Body height 160.02 cm Ludivina Mac Other [facility] Other 09-06-2022 12:25-0400 Body mass index (BMI) [Ratio] 34.01 kg/m2 Ludivina Mac Other [facility] Other 09-06-2022 12:25-0400 Body temperature 98.5 [degF] Ludivina Mac Other [facility] Other 09-06-2022 12:25-0400 Body weight 87.09 kg Ludivina Mac Other [facility] Other 09-06-2022 12:25-0400 Respiratory rate 18 /min Ludivina Mac Other [facility] Other 09-06-2022 12:25-0400 SaO2% (BldA) [Mass fraction] 98 % Ludivina Mac Other [facility] Other Evaluation note 09-06-2022 Note Date & Type Note Facility 09-06-2022 Evaluation note Encounter Date Diagnosis Assessment Notes Sep, Sore throat (ICD-10 - J02.9) Sep, Acute middle ear effusion, bilateral (ICD-10 - H65.193) Advise patient that rapid strep test was negative today in office. Discussed diagnosis with patient, explained to patient that there is middle ear fluid without signs of bacterial infection, antibiotics are not indicated at this time. This is commonly due to ET dysfunction, viral illness, allergies, barotrauma, or recent AOM. Advised patient that fluid in middle ear may take several weeks to resolve. Take rx medications as directed. Supportive treatment as directed, push fluids/test, Tylenol/Motrin for discomfort, use of OTC Claritin-D or Chikis-D for symptom relief. Follow up with PCP in 2 weeks or sooner for new or worsening symptoms. Patient verbalizes understanding and is agreeable to treatment plan [facility] Other Clinical Note 11-09-2021 Note Date & Type Note Facility 11-09-2021 Note OPERATIVE NOTE OPERATION DATE: 11/09/2021 PROCEDURE: LEEP with top hat. PREOPERATIVE DIAGNOSIS: Cervical dysplasia. POSTOPERATIVE DIAGNOSIS: Cervical dysplasia. ANESTHESIA: General. SURGEON: Trevor Killian D.O. GAS COMBUSTION ENGINEER: None. FINDINGS: Cervical dysplasia at the 9 and 3 o'clock positions. SPECIMEN: Ectocervical curettings and endocervical curettings. BLOOD LOSS: 10 mL. URINE OUTPUT: Yellow and clear. PROCEDURE: Patient was taken back to the Operating Room where she was given general anesthesia without difficulty. She was then placed in the dorsal lithotomy position. She was then prepped and draped in the normal sterile fashion. A weighted speculum was placed into the patient's vagina. The anterior lip of the cervix was identified and grasped with a single-tooth tenaculum. The patient's cervix was then copiously irrigated using vinegar. Then, a Lugol Solution was also placed onto the patient's cervix which demonstrated increased uptake of the Lugol solution at the 9 o'clock and 3 o'clock positions. At that time, the LEEP portion of the procedure was performed, including both the 9 o'clock and 3 o'clock positions. The ectocervix was sent out to Pathology. The patient's cervix was then coagulated using suction cautery. Excellent hemostasis was assured. Monsel Solution was then placed onto the patient's cervix to help maintain adequate hemostasis. All instruments were removed from the patient's vagina. The anterior lip of the cervix demonstrated excellent hemostasis. The patient tolerated the procedure well. Sponge, lap, and needle counts were correct x 2. The patient was taken to Recovery Room in stable condition. [facility] Evaluation note Note Date & Type Note Facility Evaluation note No assessment information availa [facility] Work Phone: History general Narrative - Reported Note Date & Type Note Facility History general Narrative - Reported Type Surgical History appendectomy Surgical History hernia repair Surgical History ablasion cervical [facility] Other Summary Purpose Family History No Family History Records Found Relationship Condition Age at Onset Recorded Date/T tarun father Diabetes mellitus Unknown Hypertension Unknown Not Specified Heart disease Unknown Unknown Malignant neoplasm Unknown Advance Directives No Advanced Directives Records Found Advance Directive Response Recorded Date/ Time Advance Directives No June 28 019 9:08am Chief Complaint and Reason for Visit Chief Complaint Left earache Additional Source Comments INFORMATION SOURCE (unrecogn ized section and content) DATE CREATED AUTHOR 07/15/2018 [facility] DATE CREATED AUTHOR AUTHOR'S ORGANIZ ATION 07/11/2022 [facility] DATE CREATED AUTHOR AUTHOR'S ORGANIZ ATION 09/18/2023 [facility] EPIC REASON FOR VISIT (unrecogniz ed section and content) left ear pain, mild sore thr oat Care Teams (unrecognized sec tion and content) Team Status: Active Member Role Status Dates Alek Posey MD Primary Care Provider Active Team Status: Inactive Member Role Status Dates JAZMINE Baldwin Attending Provider Active S tart: July 21, 2023 End: July 21, 2023 Alek Posey MD Primary Care Provider Active S tart: July 21, 2023 End: July 21, 2023 Goals (unrecognized section and content) Goals may be documented in a n alternate section FOR RECORDS PERTAINING TO PATIENTS WHO ARE OR HAVE BEEN ENROLLED IN A CHEMICAL DEPENDENCY/SUBSTANCEABUSE PROGRAM, SOME INFORMATION MAY BE OMITTED. This clinical summary was aggregated from multiple sources. Caution should be exercised in using it in the provision of clinical care. This summary normalizes information from multiple sources, and as a consequence, information in this document may materially change the coding, format and clinical context of patient data. In addition, data may be omitted in some cases. CLINICAL DECISIONS SHOULD BE BASED ON THE PRIMARY CLINICAL RECORDS. [facility]. provides no warranty or guarantee of the accuracy or completeness of information in this document.
== END 2023-09-24 08:45 | disposition home or self-care (01) ==
LOC: NOMS 08:45
PROVIDERS: PCP Family Medicine; Visit Provider Obstetrics & Gynecology
DX: R10.2 Pelvic and perineal pain (principal); Z97.5 Presence of (intrauterine) contraceptive device
CPT/HCPCS: 76830; 76856

== ENCOUNTER 2023-10-13 09:48 | Outpatient (OUT) | payer BC, SELFPAY ==
--- NOTE | 2023-10-13 09:50 | US_ITS ---
[address] [address] Patient Name: BROOK WILD MRN: [id number] date: 1990 Sex: F Assigned Patient Location: [facility] Current Patient Location: [facility] Accession/Order Number: [id number] Exam Date: 10/13/2023 09:51 Report Date: 10/13/2023 10:34 At the request of: TREVOR MAHARAJ Procedure: US pelvis transvaginal EXAMINATION: US pelvis transvaginal HISTORY: PELVIC PAIN, IUD PLACEMENT COMPARISON: No relevant comparison available. FINDINGS: The uterus is anteverted, anteflexed. The uterus measures 8.6 x 4.4 x 5.0 cm. No focal myometrial mass The endometrium measures 10 mm, normal. Linear hyperechogenicity within the endometrial cavity with acoustic shadowing, normally positioned IUD The right ovary is normal measuring 2.4 x 1.6 x 1.2 cm. Normal color Doppler flow. The left ovary measures 2.0 x 2.3 x 2.2 cm. Normal color Doppler flow. US/US pelvis transvaginal IMPRESSION: Normal position of the IUD Electronically authenticated by: KAYLA SHER Date: 10/13/2023 10:34
--- OUTSIDE RECORDS SUMMARY | 2023-10-13 09:57 | XMS_ITS | CCD ---
Author Organization [facility] Care Team Providers Care Naval Architect Specialist Name Role Phone BRYANT, DR FORTINO Amador Consulting Unavailable FINCH ., DR ROEN Nielsen Primary Care Unavailable HAY ., DR ANDRADE Admitting Unavailable HAY ., DR ANDRADE Attending Unavailable HAY ., DR ANDRADE Consulting Unavailable DORIAN SHARMA Consulting Unavailable CAORL ANN ., DR MURRAY Attending Unavailable CAROL ANN ., DR MURRAY Admitting Unavailable FINCH ., DR OREN Nielsen Primary Care Unavailable CAROL ANN ., DR MURRAY Attending Unavailable CAROL ANN ., DR MURRAY Admitting Unavailable CAROL ANN ., DR MURRAY Consulting Unavailable FINCH ., DR OREN Nielsen Primary Care Unavailable CAROL ANN ., DR MURRAY Attending Unavailable CAROL ANN ., DR MURRAY Admitting Unavailable CAROL ANN ., DR MURRAY Consulting Unavailable FINCH ., DR OREN Nielsen Primary Care Unavailable AGUBOSIM, KENNY Consulting Unavailable GERALDO, TOY Consulting Unavailable CAROL ANN ., DR MURRAY Attending Unavailable CAROL ANN ., DR MURRAY Admitting Unavailable CAROL ANN ., DR MURRAY Consulting Unavailable FINCH ., DR OREN Nielsen Primary Care Unavailable CAROL ANN ., DR MURRAY Attending Unavailable CAROL ANN ., DR MURRAY Admitting Unavailable CAROL ANN ., DR MURRAY Consulting Unavailable FINCH ., DR OREN Nielsen Primary Care Unavailable CAROL ANN ., DR MURRAY Attending Unavailable CAROL ANN ., DR MURRAY Admitting Unavailable FINCH ., DR OREN Nielsen Primary Care Unavailable CAROL ANN ., DR MURRAY Consulting Unavailable CAROL ANN ., DR MURRAY Attending Unavailable CAROL ANN ., DR MURRAY Admitting Unavailable FINCH ., DR OREN Nielsen Primary Care Unavailable CAROL ANN ., DR MURRAY Consulting Unavailable CAROL ANN ., DR MURRAY Attending Unavailable CAROL ANN ., DR MURRAY Admitting Unavailable CAROL ANN ., DR MURRAY Consulting Unavailable FINCH ., DR OREN Nielsen Primary Care Unavailable CAROL ANN ., DR MURRAY Attending Unavailable CAROL ANN ., DR MURRAY Admitting Unavailable STEF ., DR OREN Nielsen Primary Care Unavailable CAROL ANN ., DR MURRAY Consulting Unavailable JARRELL, DR TIAGO Amador Consulting Unavailable REQUEST, DR CLARISSA LISTED Consulting Unavailmohan HURTADO, DR FORTINO Amador Consulting Unavailable BRYANT, DR FORTINO Amador Attending Unavailable STEF ., DR OREN Nielsen Primary Care Unavailable BRYANT, DR FORTINO Amador Admitting Unavailable LEROY, ADITYA Consulting Unavailable LEROY, ADITYA Attending Unavailable LEROY, ADITYA Admitting Unavailable STEF ., DR OREN Nielsen Primary Care Unavailable Ludivina Mac Unavailable MD Alek Posey Primary Care Provider MD Alek Posey Attending Provider [phone] ALEK POSEY Attending Unavailable TREVOR KILLIAN Attending Unavailable ALEK POSEY Attending Unavailable Alek Posey Attending Unavailable Alek Posey Primary Care Unavailable Alek Posey Admitting Unavailable Medications Current Medications Medication Drug Class(es) Dates Sig (Normalized) Sig (Original) amitriptyline hydrochloride 25 mg oral tablet (2 sources) Tricyclic Antidepressant Start: 07-21-2023 Amitriptyline Active MG PO July 21, 2023 12:00am amoxicillin 500 mg oral capsule (5 sources) Penicillin-class Antibacterial Start: 07-21-2023 take 500 [...] 8 HOURS Oral for 10 Days Not-Taking Xssmacpdlg-Jesulxqyxfmmn-Xbp f (2 sources) Start: 07-21-2023 Tddmkdckks-Noobkuemjffya-Otu f Active TAB PO July 21, 2023 12:00am hydrocortisone 10 mg/ml / neomycin 3.5 mg/ml / polymyxin b 50463 unt/ml otic suspension (2 sources) Aminoglycosid e Antibacterial , Polymyxin-cla ss Antibacterial , Corticosteroi d Start: 07-21-2023 Fzjbbyvn-Wxaeefmjg-Af Active 3 DROPS OTIC Three times daily [...] ingredients 1 MG Oral Tablet) } Pack [[place]-L[place] 28 Day] (1 source) Progestin, Estrogen [place]-Liny[place] 0.25-35 MG-MCG Oral for 28 Days Not-Taking fluconazole 150 mg oral tablet (3 sources) Azole Antifungal Start: 07-12-2018 End: 07-21-2023 take 1 tablet by mouth once Fluconazole (Diflucan) 150 mg tablet Discontinued 150 MG PO Once July 12, 2018 12:00am July 21, 2023 1:08pm as a single dose take 1 tablet by keisha th once, then take 1 tablet by mouth every week Fluconazole 200 MG TAKE 1 TABLET BY MOUT H as a one time dose may repeat in 1 (ONE) week Oral for 1 Days Not-Taking ibuprofen 600 mg oral tablet (2 sources) Nonsteroidal Anti-inflammatory Drug Start: 06-28-2018 End: 07-12-2018 Ibuprofen Discontinued 600 MG PO every 6 to 8 hours June 28, 2018 12:00am July 12, 2018 1:04pm medroxyPROGESTERone acetate 10 mg oral tablet (1 source) Progestin medroxyPROGESTER one Acetate 10 MG Oral for 14 Days Not-Taking nitrofurantoin, macrocrystals 100 mg oral capsule (2 sources) Nitrofuran Antibacterial Start: 07-12-2018 End: 07-21-2023 take 1 capsule by mouth twice daily at mealtime Nitrofurantoin Macrocrystal (Macrodantin) 100 mg capsule Discontinued 100 MG PO Twice daily July 12, 2018 12:00am July 21, 2023 1:08pm must administer with a meal/food phenazopyridine hydrochloride 200 mg oral tablet (2 sources) Start: 07-12-2018 End: 07-14-2018 take 1 tablet by mouth three times daily Phenazopyridine (Pyridium) 200 mg tablet Discontinued 200 MG PO Three times daily 6 July 12, 2018 12:00am July 14, 2018 12:02am Problems Active Problems Problem Classification Problem Date [...] nonsuppurative otitis media, bilateral] Onset: 11-05-2021 Episodic Spondylosis; intervertebral disc disorders; other back problems (1 source) Cervicalgia; Translations: [Cervicalgia] Onset: 09-24-2023 Episodic Unclassified (1 source) CONTACT W/AND (SUSP) [...] Test Name Value Interpretation Reference Range Facility XR cervical spine 2Von 09-23 XR cervical spine 2V [facility] [place] [address] [place] [address] XRay Report Signed Patient: Paula Gaona MR#: [id number] : 1990 Acct:[id number] Age/Sex: 32 / F ADM Date: 09/24/23 Loc: [facility] Room: Type: [facility] Attending Dr: Alek Posey MD Copies to: Alek Posey MD Ordering Provider: Alek Posey MD Date of Service: 09/24/23 XR/XR cervical spine 2V: NECK PAIN CERVICAL SPINE 4 views: CLINICAL HISTORY: Posterior neck pain and migraines. COMPARISON: None FINDINGS: Straightening of the normal cervical lordosis which may relate to muscle spasm. Vertebral body and disc space heights appear maintained. Facet joints appear unremarkable. No prevertebral soft tissue swelling. XR/XR cervical spine 2V IMPRESSION: STRAIGHTENING OF THE NORMAL CERVICAL LORDOSIS WHICH MAY RELATE TO MUSCLE SPASM. NO ACUTE BONY PROCESS OR SIGNIFICANT DEGENERATIVE CHANGE IS SEEN. Impression dictated by: Sergio Pizarro Jr., D.OKosta09/24/2023 1:54 PM Dictation Location: [place] [address] Transcribed By: [facility] 09/24/23 1354 Dictated By: Sergio Pizarro Jr, DO 09/24/23 1353 Signed By: 09/24/23 1354 Normal [facility] Quick Strepon 09-06-2022 S. pyogenes Org specific cx Ql (Throat) Negative [employer] Other [facility] St[facility] [employer] Other FSHon 07-10-2022 FSH 7.5 mIU/mL Normal [facility] Comment on above: Result Comment: Adul t Female: Follicular phase 3.5 - 12.5 Ovulation phase 4.7 - 21.5 Luteal phase 1.7 - 7.7 Postmenopausal 25.8 - 134.8 Performed By: #### C VDTBH #### [facility] [address] [place] [address] Dr. Joy Vargas LUTEINIZING HORMONE (LH)on 0 07-10-2022 LH 19.8 mIU/mL Normal [facility] Comment on above: Result Comment: Adul t Female: Follicular phase 2.4 - 12.6 Ovulation phase 14.0 - 95.6 Luteal phase 1.0 - 11.4 Postmenopausal 7.7 - 58.5 Performed By: #### L BCLH #### [facility] [address] [place] [address] Dr. Joy Vargas PROLACTINon 07-10-2022 Prolactin 8.0 ng/mL Normal 4.8-23.3 [facility] Comment on above: Performed By: #### C VDTBH #### [facility] [address] [place] [address] Dr. Joy Vargas CBC AUTO DIFFon 07-09-2022 BASO # 0.1 103/ul Normal 0.0-0.1 [facility] Comment on above: Performed By: #### C VDTBH #### [facility] [address] [place] [address] Dr. Joy Vargas Basophils/100 WBC (Bld) 0.6 % Normal 0.2-2.0 [facility] Comment on above: Performed By: #### C VDTBH #### [facility] [address] [place] [address] Dr. Joy Vargas EO # 0.1 103/ul Normal 0.0-0.7 [facility] Comment on above: Performed By: #### C VDTBH #### [facility] [address] [place] [address] Dr. Joy Vargas Eosinophils/100 WBC (Bld) 1.1 % Normal 0.9-7.0 [facility] Comment on above: Performed By: #### C VDTBH #### [facility] [address] [place] [address] Dr. Joy Vargas Erythrocyte distribution width (RBC) [Ratio] 14.0 % Normal 11.0-15.0 [facility] Comment on above: Performed By: #### C VDTBH #### [facility] [address] [place] [address] Dr. Joy Vargas Hematocrit (Bld) [Volume fraction] 36.8 % Normal 36.0-48.0 [facility] Comment on above: Performed By: #### C VDTBH #### [facility] [address] [place] [address] Dr. Joy Vargas Hemoglobin (Bld) [Mass/Vol] 12.0 g/dL Normal 12.0-16.0 [facility] Comment on above: Performed By: #### C VDTBH #### [facility] [address] [place] [address] Dr. Joy Vargas IG # 0.01 10e3/ul Normal 0.00-0.03 [facility] Comment on above: Performed By: #### C VDTBH #### [facility] [address] [place] [address] Dr. Joy Vargas IG % 0.1 % Normal 0.0-0.5 [facility] Comment on above: Performed By: #### C VDTBH #### [facility] [address] [place] [address] Dr. Joy Vargas LYMPH # 2.6 103/ul Normal 1.2-3.8 [facility] Comment on above: Performed By: #### C VDTBH #### [facility] [address] [place] [address] Dr. Joy Vargas Lymphocytes/100 WBC (Bld) 32.2 % Normal 20.5-60.0 [facility] Comment on above: Performed By: #### C VDTBH #### [facility] [address] [place] [address] Dr. Joy Vargas MANUAL DIFF REQ NO Normal [facility] Comment on above: Performed By: #### C VDTBH #### [facility] [address] [place] [address] Dr. Joy Vargas MCH (RBC) [Entitic mass] 27.0 pg Normal 26.7-34.0 [facility] Comment on above: Performed By: #### C VDTBH #### [facility] [address] [place] [address] Dr. Joy Vargas MCHC (RBC) [Mass/Vol] 32.6 g/dL Normal 29.9-35.2 [facility] Comment on above: Performed By: #### C VDTBH #### [facility] [address] [place] [address] Dr. Joy Vargas MCV (RBC) [Entitic vol] 82.9 fL Normal 81.0-99.0 [facility] Comment on above: Performed By: #### C VDTBH #### [facility] [address] [place] [address] Dr. Joy Vargas MONO # 0.5 103/ul Normal 0.3-0.8 [facility] Comment on above: Performed By: #### C VDTBH #### [facility] [address] [place] [address] Dr. Joy Vargas Monocytes/100 WBC (Bld) 5.8 % Normal 1.7-12.0 [facility] Comment on above: Performed By: #### C VDTBH #### [facility] [address] [place] [address] Dr. Joy Vargas NEUT # 4.8 103/ul Normal 1.4-6.5 [facility] Comment on above: Performed By: #### C VDTBH #### [facility] [address] [place] [address] Dr. Joy Vargas Neutrophils/100 WBC (Bld) 60.2 % Normal 43.0-75.0 [facility] Comment on above: Performed By: #### C VDTBH #### [facility] [address] [place] [address] Dr. Joy Vargas Platelet mean volume (Bld) [Entitic vol] 10.0 fL Normal 9.5-13.5 [facility] Comment on above: Performed By: #### C VDTBH #### [facility] [address] [place] [address] Dr. Joy Vargas PLT 321 103/ul Normal 150-450 [facility] Comment on above: Performed By: #### C VDTBH #### [facility] [address] [place] [address] Dr. Joy Vargas RBC 4.44 106/ul Normal 4.20-5.40 [facility] Comment on above: Performed By: #### C VDTBH #### [facility] [address] [place] [address] Dr. Joy Vargas WBC 7.9 103/ul Normal 4.0-11.0 [facility] Comment on above: Performed By: #### C VDTBH #### [facility] [address] [place] [address] Dr. Joy Vargas FREE T4on 07-09-2022 Free T4 [Mass/Vol] 0.99 ng/dL Normal 0.76-1.46 [facility] Comment on above: Performed By: #### C VDTBH #### [facility] [address] [place] [address] Dr. Joy Vargas Pap IG,rfx Aptima HPV all pt hon 07-09-2022 . . Normal [facility] Comment on above: Performed By: #### C VDTBH #### [facility] [address] [place] [address] Dr. Joy Vargas DIAGNOSIS: Comment Normal [facility] Comment on above: Result Comment: NEGA TIVE FOR INTRAEPITHELIAL LESION OR MALIGNANCY. Performed By: #### C VDTBH #### [facility] [address] [place] [address] Dr. Joy Vargas Methodology: Comment Normal [facility] Comment on above: Result Comment: This liquid based ThinPrep(R) pap test was screened with the use of an image guided system. Performed By: #### C VDTBH #### [facility] [address] [place] [address] Dr. Joy Vargas Note: Comment Normal [facility] Comment on above: Result Comment: The Pap smear is a screening test designed to aid in the detection of premalignant and malignant conditions of the uterine cervix. It is not a diagnostic procedure and should not be used as the sole means of detecting cervical cancer. Both false-positive and false-negative reports do occur. . Performed By: #### C VDTBH #### [facility] [address] [place] [address] Dr. Joy Vargas Performed by: Comment Normal [facility] Comment on above: Result Comment: James Tony, Librarian Head (ASCP) Performed By: #### C VDTBH #### [facility] [address] [place] [address] Dr. Joy Vargas Reflex Criteria: Comment Normal [facility] Comment on above: Result Comment: The HPV DNA reflex criteria were not met with this specimen result therefore, no HPV testing was performed. . Performed By: #### C VDTBH #### [facility] [address] [place] [address] Dr. Joy Vargas Specimen adequacy: Comment Normal [facility] Comment on above: Result Comment: Sati sfactory for evaluation. Endocervical and/or squamous metaplastic cells (endocervical component) are present. Performed By: #### C VDTBH #### [facility] [address] [place] [address] Dr. Joy Vargas TSHon 07-09-2022 TSH 1.495 uIU/mL Normal 0.358-3.740 [facility] Comment on above: Performed By: #### T #### [facility] [address] [place] [address] Dr. Joy Vargas US PELVIS AND TRANSVAGon [...] TIAGO VIEYRA Date: 2022-07-09 13:57 Normal [facility] PREG QUANT HCGon 07-02-2022 HCG QUANT <1 Normal [facility] Comment on above: Performed By: #### P REGQNT #### [facility] [address] [place] [address] Dr. Joy Vargas HCG RANGE SEE BELOW Normal [facility] Comment on above: Result Comment: 5-50 0.2-1 WEEK 50-500 1-2 WEEKS 100-5,000 2-3 WEEKS 500-10,000 3-4 WEEKS 1,000-50,000 4-5 WEEKS 10,000-100,000 5-6 WEEKS 15,000-200,000 6-8 WEEKS 10,000-100,000 2-3 MONTHS Performed By: #### P REGQNT #### [facility] [address] [place] [address] Dr. Joy Vargas ER URINE PROFILEon 2 Bilirubin Ql (U) Negative Normal NEGATIVE [facility] Comment on above: Performed By: #### P MIRANDA DIAZ ERUR #### [facility] [address] [place] [address] [address] Joy Vargas Clarity (U) CLEAR Normal CLEAR [facility] Comment on above: Performed By: #### P MIRANDA DIAZ, ERUR #### [facility] [address] [place] [address] Dr. Joy Vargas Color (U) LT. YELLOW Normal YELLOW [facility] Comment on above: Performed By: #### P REGU, UMICRO, ERUR #### [facility] [address] [place] [address] [address] Joy FREEMAN A micrscopic examination will be performed if indicated. Normal [facility] Comment on above: Performed By: #### P REGU, UMICRO, ERUR #### [facility] [address] [place] [address] [address] Joy Vargas Glucose Ql (U) Negative Normal NEGATIVE [facility] Comment on above: Performed By: #### P REGU, UMICRO, ERUR #### [facility] [address] [place] [address] [address] Joy Vargas Hemoglobin Ql (U) TRACE-INTACT Abnormal NEGATIVE [facility] Comment on above: Performed By: #### P REGU, UMICRO, ERUR #### [facility] [address] [place] [address] [address] Joy Vargas Ketones Ql (U) Negative Normal NEGATIVE [facility] Comment on above: Performed By: #### P REGU, UMICRO, ERUR #### [facility] [address] [place] [address] [address] Joy Vargas LEUKOCYTES SMALL Abnormal NEGATIVE [facility] Comment on above: Performed By: #### P REGU, UMICRO, ERUR #### [facility] [address] [place] [address] [address] Joy Vargas Nitrite Ql (U) Negative Normal NEGATIVE [facility] Comment on above: Performed By: #### P REGU, UMICRO, ERUR #### [facility] [address] [place] [address] [address] Joy Vargas pH (U) 6.0 [pH] Normal 5-9 [facility] Comment on above: Performed By: #### P REGU, UMICRO, ERUR #### [facility] [address] [place] [address] [address] Joy Vargas SPEC GRAVITY 1.025 Normal 1.005-<=1.025 [facility] Comment on above: Performed By: #### P REGU, UMICRO, ERUR #### [facility] [address] [place] [address] [address] Joy Vargas UA PROTEIN Negative Normal NEGATIVE/ TRACE [facility] Comment on above: Performed By: #### P REGU, UMICRO, ERUR #### [facility] [address] [place] [address] [address] Joy Vargas UR MICRO IND INDICATED Normal [facility] Comment on above: Performed By: #### P REGU, UMICRO, ERUR #### [facility] [address] [place] [address] [address] Joy Vargas Urobilinogen Qn (U) 0.2 {Gerson'U}/dL Normal 0.2 - 1. 0 [facility] Comment on above: Performed By: #### P REGU, UMICRO, ERUR #### [facility] [address] [place] [address] Dr. Joy Vargas URon 03-28-2022 , QUAL Negative Normal NEGATIVE [facility] Comment on above: Performed By: #### P REGU, UMICRO, ERUR #### [facility] [address] [place] [address] Dr. Joy Vargas URINE MICROSCOPIC ONLYon BACTERIA TRACE Abnormal NONE SEEN [facility] Comment on above: Performed By: #### P REGU, UMICRO, ERUR #### [facility] [address] [place] [address] Dr. Joy Vargas Bacteria identified Cx Nom (U) NOT INDICATED Normal [facility] Comment on above: Performed By: #### P REGU, UMICRO, ERUR #### [facility] [address] [place] [address] [address] Joy Vargas CAST NONE SEEN Normal NONE SEEN [facility] Comment on above: Performed By: #### P REGU, UMICRO, ERUR #### [facility] [address] [place] [address] Dr. Joy Vargas Crystals LM Nom (Urine sed) NONE SEEN Normal NONE SEEN [facility] Comment on above: Performed By: #### P REGU, UMICRO, ERUR #### [facility] [address] [place] [address] [address] Joy Vargas Epithelial cells LM Ql (Urine sed) FEW Abnormal NONE SEEN /RARE [facility] Comment on above: Performed By: #### P REGU, UMICRO, ERUR #### [facility] [address] [place] [address] [address] Joy Vargas MUCOUS NONE SEEN Normal NONE SEEN [facility] Comment on above: Performed By: #### P REGU, UMICRO, ERUR #### [facility] [address] [place] [address] [address] Joy Vargas RBC 0-2 Normal 0-2 [facility] Comment on above: Performed By: #### P REGU, UMICRO, ERUR #### [facility] [address] [place] [address] [address] Joy Vargas WBC 0-2 Abnormal NONE SEEN [facility] Comment on above: Performed By: #### P REGU, UMICRO, ERUR #### [facility] [address] [place] [address] [address] Joy Vargas XR ABD FLAT UP_PA [...] by: DORIAN SHARMA Date: 2022-03-28 20:31 Normal [facility] Pap IG,rfx Aptima HPV all pt hon 03-15-2022 . . Normal [facility] Comment on above: Performed By: #### C VDTBH #### [facility] [address] [place] [address] Dr. Joy Vargas DIAGNOSIS: Comment Abnormal [facility] Comment on above: Result Comment: EPIT HELIAL CELL ABNORMALITY. ATYPICAL SQUAMOUS CELLS OF UNDETERMINED SIGNIFICANCE (ASC-US). Performed By: #### C VDTBH #### [facility] [address] [place] [address] [address] Joy Vargas Electronically signed by: Comment Normal [facility] Comment on above: Result Comment: Bora Yu MD, Pathologist Performed By: #### C VDTBH #### [facility] [address] [place] [address] Dr. Joy Vargas HPV Aptima Negative Normal Negative [facility] Comment on above: Result Comment: This nucleic acid amplification test detects fourteen high-risk HPV types (16,18,31,33,35,39,45,51,52,56,58,59,66,68) without differentiation. Performed By: #### C VDTBH #### [facility] [address] [place] [address] Dr. Joy Vargas Methodology: Comment Normal [facility] Comment on above: Result Comment: This liquid based ThinPrep(R) pap test was screened with the use of an image guided system. Performed By: #### C VDTBH #### [facility] [address] [place] [address] Dr. Joy Vargas Note: Comment Normal [facility] Comment on above: Result Comment: The Pap smear is a screening test designed to aid in the detection of premalignant and malignant conditions of the uterine cervix. It is not a diagnostic procedure and should not be used as the sole means of detecting cervical cancer. Both false-positive and false-negative reports do occur. . Performed By: #### C VDTBH #### [facility] [address] [place] [address] Dr. Joy Vargas Pathologist Provided ICD10 Comment Normal [facility] Comment on above: Result Comment: R87. 610 Performed By: #### C VDTBH #### [facility] [address] [place] [address] Dr. Joy Vargas Performed by: Comment Normal [facility] Comment on above: Result Comment: Sera Song, Librarian Head (ASCP) Performed By: #### C VDTBH #### [facility] [address] [place] [address] Dr. Joy Vargas Reflex Criteria: Comment Normal [facility] Comment on above: Result Comment: See below for HPV testing results. . Performed By: #### C VDTBH #### [facility] [address] [place] [address] Dr. Joy Vargas Specimen adequacy: Comment Normal [facility] Comment on above: Result Comment: Sati sfactory for evaluation. Endocervical and/or squamous metaplastic cells (endocervical component) are present. Performed By: #### C VDTBH #### [facility] [address] [place] [address] Dr. Joy Vargas CBC AUTO DIFFon 11-09-2021 BASO # 0.0 103/ul Normal 0.0-0.1 [facility] Comment on above: Performed By: #### C BC #### [facility] [address] [place] [address] Dr. Joy Vargas Basophils/100 WBC (Bld) 0.3 % Normal 0.2-2.0 [facility] Comment on above: Performed By: #### C BC #### [facility] [address] [place] [address] Dr. Joy Vargas EO # 0.1 103/ul Normal 0.0-0.7 [facility] Comment on above: Performed By: #### C BC #### [facility] [address] [place] [address] Dr. Joy Vargas Eosinophils/100 WBC (Bld) 0.9 % Normal 0.9-7.0 [facility] Comment on above: Performed By: #### C BC #### [facility] [address] [place] [address] Dr. Joy Vargas Erythrocyte distribution width (RBC) [Ratio] 12.8 % Normal 11.0-15.0 [facility] Comment on above: Performed By: #### C BC #### [facility] [address] [place] [address] Dr. Joy Vargas Hematocrit (Bld) [Volume fraction] 37.2 % Normal 36.0-48.0 [facility] Comment on above: Performed By: #### C BC #### [facility] [address] [place] [address] Dr. Joy Vargas Hemoglobin (Bld) [Mass/Vol] 12.4 g/dL Normal 12.0-16.0 [facility] Comment on above: Performed By: #### C BC #### [facility] [address] [place] [address] Dr. Joy Vargas IG # 0.02 10e3/ul Normal 0.00-0.03 [facility] Comment on above: Performed By: #### C BC #### [facility] [address] [place] [address] Dr. Joy Vargas IG % 0.2 % Normal 0.0-0.5 [facility] Comment on above: Performed By: #### C BC #### [facility] [address] [place] [address] Dr. Joy Vargas LYMPH # 2.7 103/ul Normal 1.2-3.8 [facility] Comment on above: Performed By: #### C BC #### [facility] [address] [place] [address] Dr. Joy Vargas Lymphocytes/100 WBC (Bld) 29.9 % Normal 20.5-60.0 [facility] Comment on above: Performed By: #### C BC #### [facility] [address] [place] [address] Dr. Joy Vargas MANUAL DIFF REQ NO Normal [facility] Comment on above: Performed By: #### C BC #### [facility] [address] [place] [address] Dr. Joy Vargas MCH (RBC) [Entitic mass] 27.9 pg Normal 26.7-34.0 [facility] Comment on above: Performed By: #### C BC #### [facility] [address] [place] [address] Dr. Joy Vargas MCHC (RBC) [Mass/Vol] 33.3 g/dL Normal 29.9-35.2 [facility] Comment on above: Performed By: #### C BC #### [facility] [address] [place] [address] Dr. Joy Vargas MCV (RBC) [Entitic vol] 83.8 fL Normal 81.0-99.0 [facility] Comment on above: Performed By: #### C BC #### [facility] [address] [place] [address] Dr. Joy Vargas MONO # 0.6 103/ul Normal 0.3-0.8 [facility] Comment on above: Performed By: #### C BC #### [facility] [address] [place] [address] Dr. Joy Vargas Monocytes/100 WBC (Bld) 6.2 % Normal 1.7-12.0 [facility] Comment on above: Performed By: #### C BC #### [facility] [address] [place] [address] Dr. Joy Vargas NEUT # 5.7 103/ul Normal 1.4-6.5 [facility] Comment on above: Performed By: #### C BC #### [facility] [address] [place] [address] Dr. Joy Vargas Neutrophils/100 WBC (Bld) 62.5 % Normal 43.0-75.0 [facility] Comment on above: Performed By: #### C BC #### [facility] [address] [place] [address] Dr. Joy Vargas Platelet mean volume (Bld) [Entitic vol] 8.9 fL Critically low 9.5-13.5 [facility] Comment on above: Performed By: #### C BC #### [facility] [address] [place] [address] Dr. Joy Vargas PLT 344 103/ul Normal 150-450 [facility] Comment on above: Performed By: #### C BC #### [facility] [address] [place], [place] [address] Dr. Joy Vargas RBC 4.44 106/ul Normal 4.20-5.40 [facility] Comment on above: Performed By: #### C BC #### [facility] [address] [place], [place] [address] Dr. Joy Vargas WBC 9.0 103/ul Normal 4.0-11.0 [facility] Comment on above: Performed By: #### C BC #### [facility] [address] [place], [place] [address] Dr. Joy Vargas PREG HCG QUALon 11-09-2021 , QUAL Negative Normal NEGATIVE [facility] Comment on above: Performed By: #### C VDTBH #### [facility] [address] [place], [place] [address] Dr. Joy Vargas [facility]on [facility]06 SARS-CoV-2 (COVID-19) RNA NATHAN+probe Ql (Unsp spec) Not detected Normal NOT DETECTED [facility] Comment on above: Result Comment: This test is not yet approved or cleared by the [place] FDA. When there are no FDA-approved or cleared tests available, and other criteria are met, FDA can make tests available under an emergency access mechanism called an Emergency Use Authorization (EUA). The EUA for this test is supported by the [place] of Health and Human Service's (HHS's) declaration [...] SARS-CoV-2. Performed By: #### C VDTBH #### [facility] [address] [place] [address] Dr. Joy Vargas Covid-19 PCR (CVDTB)on 10-06 SARS-CoV-2 (COVID-19) RNA NATHAN+probe Ql (Unsp spec) Not detected Normal NOT DETECTED [facility] Comment on above: Result Comment: When diagnostic [...] for this test is supported by the [place] of Health and Human Service's declaration that [...] used). Performed By: #### C VDTB #### [facility] [address] [place] [address] Dr. Joy Vargas PAP ACOG PANEL 2: 21 to 2909-10-2021 . . Normal [facility] Comment on above: Performed By: #### [id number] #### [facility] [address] [place] [address] Dr. Joy Vargas Age Gdln ACOG Testing - Normal [facility] Comment on above: Performed By: #### [id number] #### [facility] [address] [place] [address] Dr. Joy Vargas DIAGNOSIS: Comment Abnormal [facility] Comment on above: Result Comment: EPIT HELIAL CELL ABNORMALITY. ATYPICAL SQUAMOUS CELLS, CANNOT EXCLUDE HIGH-GRADE SQUAMOUS INTRAEPITHELIAL LESION (ASC-H). Performed By: #### [id number] #### [facility] [address] [place] [address] Dr. Joy Vargas Electronically signed by: Comment Normal [facility] Comment on above: Result Comment: Arianna Nina MD, Pathologist Performed By: #### [id number] #### [facility] [address] [place] [address] Dr. Joy Vargas Methodology: Comment Normal [facility] Comment on above: Result Comment: This liquid based ThinPrep(R) pap test was screened with the use of an image guided system. Performed By: #### 4 [id number] #### [facility] [address] [place] [address] Dr. Joy Vagras Note: Comment Normal [facility] Comment on above: Result Comment: The Pap smear is a screening test designed to aid in the detection of premalignant and malignant conditions of the uterine cervix. It is not a diagnostic procedure and should not be used as the sole means of detecting cervical cancer. Both false-positive and false-negative reports do occur. . Performed By: #### [id number] #### [facility] [address] [place] [address] Dr. Joy Vargas Pathologist Provided ICD10 Comment Normal [facility] Comment on above: Result Comment: [id number] Performed By: #### [id number] #### [facility] [address] [place] [address] Dr. Joy Vargas Performed by: Comment Normal [facility] Comment on above: Result Comment: Aileen Meza, Librarian Head (ASCP) Performed By: #### [id number] #### [facility] [address] [place] [address] Dr. Joy Vargas Recommendation: Comment Abnormal [facility] Comment on above: Result Comment: Sugg est follow up as clinically appropriate. Performed By: #### [id number] #### [facility] [address] [place] [address] Dr. Joy Vargas Reflex Criteria: Comment Normal [facility] Comment on above: Result Comment: The HPV DNA reflex criteria were not met with this specimen result therefore, no HPV testing was performed. . Performed By: #### 4 [id number] #### [facility] [address] [place] [address] Dr. Joy Vargas Specimen adequacy: Comment Normal [facility] Comment on above: Result Comment: Sati sfactory for evaluation. Endocervical and/or squamous metaplastic cells (endocervical component) are present. Performed By: #### 4 [id number] #### [facility] [address] [place] [address] [address] Joy Vargas Vital Signs Date Time Vital Sign Value Performing Clinician Facility 07-21-2023 13:06-0400 Body height 160.02 cm [facility] 07-21-2023 13:06-0400 Body mass index (BMI) [Ratio] 35.4 kg/m2 [facility] 07-21-2023 13:06-0400 Body temperature 98.2 [degF] [facility] 07-21-2023 13:06-0400 Body weight 90.71 kg [facility] 07-21-2023 13:06-0400 Heart rate 98 /min [facility] 07-21-2023 13:06-0400 Respiratory rate 16 /min [facility] 07-21-2023 13:06-0400 SaO2% (BldA) [Mass fraction] 98 % [facility] 09-06-2022 12:25-0400 Body height 160.02 cm Ludivina Mac Other [facility] Other 09-06-2022 12:25-0400 Body mass index (BMI) [Ratio] 34.01 kg/m2 Ludivina Mac Other [facility] Other 09-06-2022 12:25-0400 Body temperature 98.5 [degF] Ludivina Mac Other [facility] Other 09-06-2022 12:25-0400 Body weight 87.09 kg Ludivina Mac Other [facility] Other 09-06-2022 12:25-0400 Respiratory rate 18 /min Ludiivna Mac Other [facility] Other 09-06-2022 12:25-0400 SaO2% (BldA) [Mass fraction] 98 % Ludivina Mac Other [facility] Other Encounters Encounter Date Encounter Type Care Provider Facility Start: 09-24-2023 End: 09-24-2023 Patient encounter procedure MD Alek Posey Work Phone: [facility] Work Phone: Start: 09-24-2023 End: 09-24-2023 ambulatory MD Alek Posey Work Phone: [facility] Work Phone: Start: 09-24-2023 End: 09-24-2023 ambulatory ALEK POSEY Not Available Start: 09-17-2023 End: 09-17-2023 ambulatory TREVOR KILLIAN Not Available Start: 08-25-2023 End: 08-25-2023 ambulatory ALEK POESY Not Available Start: 07-21-2023 End: 07-21-2023 ambulatory [facility] Work Phone: Start: 07-21-2023 End: 07-21-2023 Patient encounter procedure [facility] Work Phone: Start: 09-06-2022 End: 09-06-2022 ambulatory Ludivina Mac Other [facility] Other Start: 09-06-2022 Office outpatient ne w 30 minutes Ludivina Mac [facility] Start: 07-09-2022 End: 07-10-[address] TREVOR KILLIAN . Facility: Start: 07-03-2022 Encounter for cervic al smear to confirm findings of recent normal smear following initial abnormal smear DR TREVOR KILLIAN . [facility] Start: 07-02-2022 End: 07-02-[address] TREVOR [...] laboratory examination DR TREVOR KILLIAN . [facility] Start: 11-03-2021 End: 11-03-2021 ambulatory ADITYA HARPER Facility:[facility] Start: 10-31-2021 End: 11-01-[address] TREVOR KILLIAN . Facility:[facility] Start: 10-31-2021 End: 11-01-2021 Encounter for preprocedural laboratory examination DR TREVOR KILLIAN . Facility:[facility] Start: 10-30-2021 Encounter for other preprocedural examination DR TREVOR KILLIAN . [facility] Start: 10-30-2021 End: 10-30-[address] FORTINO HURTADO Facility:[facility] Start: 10-25-2021 End: 10-26-[address] TREVOR KILLIAN . Facility:[facility] Start: 10-25-2021 End: 10-26-2021 Encounter for other preprocedural examination DR TREVOR KILLIAN . Facility:[facility] Start: 09-05-2021 End: 09-05-[address] TREVOR KILLIAN . Facility:[facility] Procedures Date Procedure Procedure Detail Performing Clinician Start: 09-24-2023 X-ray of cervical spine MD Alek Posey Work Phone: Payers Date Payer Category Payer Self-pay [id number] 1990 Unknown [id number] [id number] 1991 Unknown [id number] 2.16.840.1.841776.3.579.2.593 1991 Unknown [id number] 2.16.840.1.443115.3.579.2.593 1991 Unknown [id number] 2.16.840.1.927778.3.579.2.593 1991 Unknown [id number] 2.16.840.1.056428.3.579.2.593 1991 Unknown [id number] 2.16.840.1.047529.3.579.2.593 1991 Unknown [id number] 2.16.840.1.048106.3.579.2.593 1991 Unknown [id number] 2.16.840.1.076658.3.579.2.593 1991 Unknown [id number] 2.16.840.1.951837.3.579.2.593 1991 Unknown [id number] 2.16.840.1.832367.3.579.2.593 1991 Unknown [id number] 2.16.840.1.764681.3.579.2.593 1991 Unknown [id number] 2.16.840.1.747902.3.579.2.593 1991 Unknown [id number] 2.16.840.1.625170.3.579.2.1259 1991 Unknown [id number] 2.16.840.1.259786.3.579.2.1259 1991 Unknown [id number] 2.16.840.1.708454.3.579.2.1259 1959 Unknown [id number] 1959 Unknown [id number] Medicaid [facility] [id number] Unknown [id number] [id number] Social History Date Type Detail Facility Unknown if ever smoked [facility] Other Sex Assigned At Sex Assigned At Bir th [facility] Other Start: 07-12-2018 Tobacco smoking status NHIS Never smoked tobacco (finding) [facility] Start: 1990 Sex Assigned At Female [facility] Evaluation note 09-06-2022 Note Date & Type [...] understanding and is agreeable to treatment plan [facility] Other Clinical Note 11-09-2021 Note Date & Type Note Facility 11-09-2021 Note OPERATIVE NOTE OPERATION DATE: 11/09/2021 PROCEDURE: LEEP with top hat. PREOPERATIVE DIAGNOSIS: Cervical dysplasia. POSTOPERATIVE DIAGNOSIS: Cervical dysplasia. ANESTHESIA: General. SURGEON: Trevor Killian D.O. WARP TYING MACHINE KNOTTER: None. FINDINGS: Cervical dysplasia at the 9 [...] to Recovery Room in stable condition. [facility] Evaluation note Note Date & Type Note Facility Evaluation note No assessment information availa [facility] Work Phone: History general Narrative - Reported Note Date & Type Note Facility History general Narrative - Reported Type Surgical History appendectomy Surgical History hernia repair Surgical History ablasion cervical [facility] Other Summary Purpose Family History No Family History Records Found Relationship Condition Age at Onset Recorded Date/T tarun father Diabetes mellitus Unknown Hypertension Unknown Not Specified Heart disease Unknown Unknown Malignant neoplasm Unknown Advance Directives No Advanced Directives Records Found Advance Directive Response Recorded Date/ Time Advance Directives No June 28, 019 9:08am Chief Complaint and Reason for Visit Chief Complaint Left earache Additional Source Comments INFORMATION SOURCE (unrecogn ized section and content) DATE CREATED AUTHOR 07/11/2022 [facility] pital DATE CREATED AUTHOR AUTHOR'S ORGANIZ ATION 09/26/2023 [facility] EPIC DATE CREATED AUTHOR AUTHOR'S ORGANIZ ATION 10/05/2023 [facility] REASON FOR VISIT (unrecogniz ed section and [...] July 21, 2023 End: July 21, 2023 Team Status: Inactive Member Role Status Dates Alek Posey MD Primary Care Provide r, Attending Provider Active Start: September 24, 2023 End: September 24, 2023 Goals (unrecognized section and content) Goals [...] BE BASED ON THE PRIMARY CLINICAL RECORDS. [facility]. provides no warranty or guarantee of the accuracy or completeness of information in this document.
== END 2023-10-13 09:49 | disposition home or self-care (01) ==
LOC: NOMS 09:48
PROVIDERS: PCP Family Medicine; Visit Provider Obstetrics & Gynecology
DX: R10.2 Pelvic and perineal pain (principal); Z30.431 Encounter for routine checking of intrauterine contraceptive device
CPT/HCPCS: 76830

== ENCOUNTER 2023-11-02 18:30 | Emergency (ER) | payer BC, SELFPAY ==
[2023-11-02] VITALS (29 sets, daily range): BP systolic 131–162; BP diastolic 80–111; PULSE 60–100; TEMP 36.7; O2SAT 100; BMI 32.6
--- OUTSIDE RECORDS SUMMARY | 2023-11-02 18:52 | XMS_ITS | CCD ---
Author Organization [facility] Care Team Providers Care Streetcar Operator Name Role Phone BRYANT, DR FORTINO Amador Consulting Unavailable FINCH ., DR OREN Nielsen Primary Care Unavailable HAY ., DR [...] DR TIAGO Amador Consulting Unavailable REQUEST, DR ROMO LISTED Consulting Unavailmohan HURTADO, DR FORTINO Amador Consulting Unavailable BRYANT, DR FORTINO Amador Attending Unavailable STEF ., DR OREN Nielsen Primary Care Unavailable BRYANT, DR FORTINO Amador Admitting Unavailable LEROY, ADITYA Consulting Unavailable LEROY, ADITYA Attending Unavailable LEROY, ADITYA Admitting Unavailable STEF ., DR OREN Nielsen Primary Care Unavailable Ludivina Mac Unavailable MD Alek Posey Primary Care Provider [phone] MD Alek Posey Attending Provider [phone] Alek Posey Attending Unavailable Alek Posey Primary Care Unavailable Alek Posey Admitting Unavailable ALEK POSEY Attending Unavailable TREVOR KILLIAN Attending Unavailable ALEK POSEY Attending Unavailable MILADIS KIRK Attending Unavailable Medications Current Medications Medication Drug Class(es) Dates Sig (Normalized) Sig (Original) amitriptyline hydrochloride 25 mg oral tablet (2 sources) Tricyclic Antidepressant Start: 07-21-2023 Amitriptyline Active MG PO July 21, 2023 12:00am amoxicillin 500 mg oral capsule (5 sources) Penicillin-class Antibacterial Start: 07-21-2023 take 500 mg by mouth three times daily Amoxicillin Active 500 MG PO Three times daily 25 10July 21, 2023 12:00am Start: 06-28-2018 End: 07-08-2018 take 500 mg by mouth three times daily Amoxicillin Discontinued 500 MG PO Three times daily 03 02June 28, 2018 12:00am July 08, 2018 12:02am take 1 tablet by keisha th every eight hours Amoxicillin 500 MG TAKE 1 TABLET BY MOUTH EVERY 8 HOURS Oral for 10 Days Not-Taking Mmbdnufvpn-Wtomzuchzwope-Yhq f (2 sources) Start: 07-21-2023 Oimmvbbwyj-Hgtxnctuuocek-Eeq f Active TAB PO July 21, 2023 12:00am hydrocortisone 10 mg/ml / neomycin 3.5 mg/ml / polymyxin b 97421 unt/ml otic suspension (2 sources) Aminoglycosid e Antibacterial , Polymyxin-cla ss Antibacterial , Corticosteroi d Start: 07-21-2023 Kvoysavo-Jzgstabzx-Tx Active 3 DROPS OTIC Three times daily [...] ingredients 1 MG Oral Tablet) } Pack [[place] 28 Day] (1 source) Progestin, Estrogen [place] 0.25-35 MG-MCG Oral for 28 Days Not-Taking [...] spine 2Von 09-23 XR cervical spine 2V [facility] Main [place] [address] [place] [address] XRay Report Signed Patient: Paula Wild MR#: [id number] : 1990 Acct:[id number] Age/Sex: 32 / F ADM Date: 09/24/23 Loc: [facility] Room: Type: [facility] Attending Dr: Alek Posey MD Copies to: [...] SEEN. Impression dictated by: Sergio Pizarro Jr., D.O.09/24/2023 1:54 PM Dictation Location: [place] [address] Transcribed By: [facility] 09/24/23 1356 Dictated By: Sergio Pizarro Jr, DO 09/24/23 1353 Signed By: 09/24/23 1354 Normal [facility] Quick Strepon 09-06-2022 S. pyogenes Org specific cx Ql (Throat) Negative [facility] [employer] Other Quick Strep [facility] [employer] Other FSHon 07-10-2022 FSH 7.5 mIU/mL Normal [facility] Comment on above: Result Comment: Adul t Female: Follicular phase 3.5 - 12.5 Ovulation phase 4.7 - 21.5 Luteal phase 1.7 - 7.7 Postmenopausal 25.8 - 134.8 Performed By: #### C VDTBH #### [facility] [address] [place] [address] Dr. Joy Vargas LUTEINIZING HORMONE (LH)on 0 07-10-2022 LH 19.8 mIU/mL Normal [facility] Comment on above: Result Comment: Adul t Female: Follicular phase 2.4 - 12.6 Ovulation phase 14.0 - 95.6 Luteal phase 1.0 - 11.4 Postmenopausal 7.7 - 58.5 Performed By: #### L BCLH #### [facility] [address] [place] [address] Dr. Joy Vargas PROLACTINon 07-10-2022 Prolactin 8.0 ng/mL Normal 4.8-23.3 [facility] Comment on above: Performed By: #### C VDTBH #### [facility] [address] [place] [address] Dr. Joy Vargas CBC AUTO DIFFon 07-09-2022 BASO # 0.1 103/ul Normal 0.0-0.1 [facility] Comment on above: Performed By: #### C VDTBH #### [facility] [address] [place] [address] Dr. Joy Vargas Basophils/100 WBC (Bld) 0.6 % Normal 0.2-2.0 [facility] Comment on above: Performed By: #### C VDTBH #### [facility] [address] [place] [address] Dr. Joy Vargas EO # 0.1 103/ul Normal 0.0-0.7 [facility] Comment on above: Performed By: #### C VDTBH #### [facility] [address] [place] [address] Dr. Joy Vargas Eosinophils/100 WBC (Bld) 1.1 % Normal 0.9-7.0 [facility] Comment on above: Performed By: #### C VDTBH #### [facility] [address] [place] [address] Dr. Joy Vargas Erythrocyte distribution width (RBC) [Ratio] 14.0 % Normal 11.0-15.0 [facility] Comment on above: Performed By: #### C VDTBH #### [facility] [address] [place] [address] Dr. Joy Vargas Hematocrit (Bld) [Volume fraction] 36.8 % Normal 36.0-48.0 [facility] Comment on above: Performed By: #### C VDTBH #### [facility] [address] [place] [address] Dr. Joy Vargas Hemoglobin (Bld) [Mass/Vol] 12.0 g/dL Normal 12.0-16.0 [facility] Comment on above: Performed By: #### C VDTBH #### [facility] [address] [place] [address] Dr. Joy Vargas IG # 0.01 10e3/ul Normal 0.00-0.03 [facility] Comment on above: Performed By: #### C VDTBH #### [facility] [address] [place] [address] Dr. Joy Vargas IG % 0.1 % Normal 0.0-0.5 [facility] Comment on above: Performed By: #### C VDTBH #### [facility] [address] [place] [address] Dr. Joy Vargas LYMPH # 2.6 103/ul Normal 1.2-3.8 [facility] Comment on above: Performed By: #### C VDTBH #### [facility] [address] [place] [address] Dr. Joy Vargas Lymphocytes/100 WBC (Bld) 32.2 % Normal 20.5-60.0 [facility] Comment on above: Performed By: #### C VDTBH #### [facility] [address] [place] [address] Dr. Joy Vargas MANUAL DIFF REQ NO Normal [facility] Comment on above: Performed By: #### C VDTBH #### [facility] [address] [place] [address] Dr. Joy Vargas MCH (RBC) [Entitic mass] 27.0 pg Normal 26.7-34.0 [facility] Comment on above: Performed By: #### C VDTBH #### [facility] [address] [place] [address] Dr. Joy Vargas MCHC (RBC) [Mass/Vol] 32.6 g/dL Normal 29.9-35.2 [facility] Comment on above: Performed By: #### C VDTBH #### [facility] [address] [place] [address] Dr. Joy Vargas MCV (RBC) [Entitic vol] 82.9 fL Normal 81.0-99.0 [facility] Comment on above: Performed By: #### C VDTBH #### [facility] [address] [place] [address] Dr. Joy Vargas MONO # 0.5 103/ul Normal 0.3-0.8 [facility] Comment on above: Performed By: #### C VDTBH #### [facility] [address] [place] [address] Dr. Joy Vargas Monocytes/100 WBC (Bld) 5.8 % Normal 1.7-12.0 [facility] Comment on above: Performed By: #### C VDTBH #### [facility] [address] [place] [address] Dr. Joy Vargas NEUT # 4.8 103/ul Normal 1.4-6.5 [facility] Comment on above: Performed By: #### C VDTBH #### [facility] [address] [place] [address] Dr. Joy Vargas Neutrophils/100 WBC (Bld) 60.2 % Normal 43.0-75.0 [facility] Comment on above: Performed By: #### C VDTBH #### [facility] [address] [place] [address] [address] Joy Vargas Platelet mean volume (Bld) [Entitic vol] 10.0 fL Normal 9.5-13.5 [facility] Comment on above: Performed By: #### C VDTBH #### [facility] [address] [place] [address] [address] Joy Vargas PLT 321 103/ul Normal 150-450 [facility] Comment on above: Performed By: #### C VDTBH #### [facility] [address] [place] [address] [address] Joy Varags RBC 4.44 106/ul Normal 4.20-5.40 [facility] Comment on above: Performed By: #### C VDTBH #### [facility] [address] [place] [address] Dr. Joy Vargas WBC 7.9 103/ul Normal 4.0-11.0 [facility] Comment on above: Performed By: #### C VDTBH #### [facility] [address] [place] [address] [address] Joy Vargas FREE T4on 07-09-2022 Free T4 [Mass/Vol] 0.99 ng/dL Normal 0.76-1.46 [facility] Comment on above: Performed By: #### C VDTBH #### [facility] [address] [place] [address] Dr. Joy Vargas Pap IG,rfx Aptima HPV all pt hon 07-09-2022 . . Normal [facility] Comment on above: Performed By: #### C VDTBH #### [facility] [address] [place] [address] Dr. Joy Vargas DIAGNOSIS: Comment Normal [facility] Comment on above: Result Comment: NEGA TIVE FOR INTRAEPITHELIAL LESION OR MALIGNANCY. Performed By: #### C VDTBH #### [facility] [address] [place] [address] Dr. Joy Vargas Methodology: Comment Normal [facility] Comment on above: Result Comment: This liquid based ThinPrep(R) pap test was screened with the use of an image guided system. Performed By: #### C VDTBH #### [facility] [address] [place] [address] Dr. Joy Vargas Note: Comment Normal [facility] Comment on above: Result Comment: The Pap smear is a screening test designed to aid in the detection of premalignant and malignant conditions of the uterine cervix. It is not a diagnostic procedure and should not be used as the sole means of detecting cervical cancer. Both false-positive and false-negative reports do occur. . Performed By: #### C VDTBH #### [facility] [address] [place] [address] Dr. Joy Vargas Performed by: Comment Normal [facility] Comment on above: Result Comment: James Tony, Paper Cutting Machine Operator (ASCP) Performed By: #### C VDTBH #### [facility] [address] [place] [address] Dr. Joy Vargas Reflex Criteria: Comment Normal [facility] Comment on above: Result Comment: The HPV DNA reflex criteria were not met with this specimen result therefore, no HPV testing was performed. . Performed By: #### C VDTBH #### [facility] [address] [place] [address] Dr. Joy Vargas Specimen adequacy: Comment Normal [facility] Comment on above: Result Comment: Sati sfactory for evaluation. Endocervical and/or squamous metaplastic cells (endocervical component) are present. Performed By: #### C VDTBH #### [facility] [address] [place] [address] Dr. Joy Vargas TSHon 07-09-2022 TSH 1.495 uIU/mL Normal 0.358-3.740 [facility] Comment on above: Performed By: #### T #### [facility] [address] [place] [address] Dr. Joy Vargas US PELVIS AND TRANSVAGon [...] TIAGO VIEYRA Date: 2022-07-09 13:57 Normal [facility] PREG QUANT HCGon 07-02-2022 HCG QUANT <1 Normal [facility] Comment on above: Performed By: #### P REGQNT #### [facility] [address] [place] [address] Dr. Joy Vargas HCG RANGE SEE BELOW Normal [facility] Comment on above: Result Comment: 5-50 0.2-1 WEEK 50-500 1-2 WEEKS 100-5,000 2-3 WEEKS 500-10,000 3-4 WEEKS 1,000-50,000 4-5 WEEKS 10,000-100,000 5-6 WEEKS 15,000-200,000 6-8 WEEKS 10,000-100,000 2-3 MONTHS Performed By: #### P REGQNT #### [facility] [address] [place] [address] Dr. Joy Vargas ER URINE PROFILEon 2 Bilirubin Ql (U) Negative Normal NEGATIVE [facility] Comment on above: Performed By: #### P MIRANDA DIAZ ERUR #### [facility] [address] [place] [address] Dr. Joy Vargas Clarity (U) CLEAR Normal CLEAR [facility] Comment on above: Performed By: #### P MIRANDA DIAZ ERUR #### [facility] [address] [place] [address] Dr. Joy Vargas Color (U) LT. YELLOW Normal YELLOW [facility] Comment on above: Performed By: #### P REGUMIRANDA, ERUR #### [facility] [address] [address] [address] Joy FREEMAN A micrscopic examination will be performed if indicated. Normal [facility] Comment on above: Performed By: #### P REGU UMICRO, ERUR #### [facility] [address] [address] [address] Joy Vargas Glucose Ql (U) Negative Normal NEGATIVE [facility] Comment on above: Performed By: #### P REGU UMICRO, ERUR #### [facility] [address] [address] [address] Joy Vargas Hemoglobin Ql (U) TRACE-INTACT Abnormal NEGATIVE [facility] Comment on above: Performed By: #### P REGUYASHIRAICRO, ERUR #### [facility] [address] [address] [address] Joy Vargas Ketones Ql (U) Negative Normal NEGATIVE [facility] Comment on above: Performed By: #### P REGUYASHIRAICRO, ERUR #### [facility] [address] [address] [address] Joy Vargas LEUKOCYTES SMALL Abnormal NEGATIVE [facility] Comment on above: Performed By: #### P REGU UMICRO, ERUR #### [facility] [address] [address] [address] Joy Vargas Nitrite Ql (U) Negative Normal NEGATIVE [facility] Comment on above: Performed By: #### P REGU UMICRO, ERUR #### [facility] [address] [address] [address] Joy Vargas pH (U) 6.0 [pH] Normal 5-9 [facility] Comment on above: Performed By: #### P REGU UMICRO, ERUR #### [facility] [address] [address] [address] Joy Vargas SPEC GRAVITY 1.025 Normal 1.005-<=1.025 [facility] Comment on above: Performed By: #### P REGU UMICRO, ERUR #### [facility] [address] [place] [address] Dr. Joy Vargas UA PROTEIN Negative Normal NEGATIVE/ TRACE [facility] Comment on above: Performed By: #### P REGU UMICRO, ERUR #### [facility] [address] [place] [address] Dr. Joy Vargas UR MICRO IND INDICATED Normal [facility] Comment on above: Performed By: #### P REGU UMICRO, ERUR #### [facility] [address] [place] [address] Dr. Joy Vargas Urobilinogen Qn (U) 0.2 {Gerson'U}/dL Normal 0.2 - 1. 0 [facility] Comment on above: Performed By: #### P MIRANDA DIAZ, ERUR #### [facility] [address] [place] [address] Dr. Joy Vargas URon 03-28-2022 , QUAL Negative Normal NEGATIVE [facility] Comment on above: Performed By: #### P YASHIRA DIAZICRO, ERUR #### [facility] [address] [place] [address] Dr. Joy Vargas URINE MICROSCOPIC ONLYon BACTERIA TRACE Abnormal NONE SEEN [facility] Comment on above: Performed By: #### P REGUYASHIRAICRO, ERUR #### [facility] [address] [place] [address] Dr. Joy Vargas Bacteria identified Cx Nom (U) NOT INDICATED Normal [facility] Comment on above: Performed By: #### P REGU UMICRO, ERUR #### [facility] [address] [place] [address] Dr. Joy Vargas CAST NONE SEEN Normal NONE SEEN [facility] Comment on above: Performed By: #### P REGU UMICRO, ERUR #### [facility] [address] [place] [address] Dr. Joy Vargas Crystals LM Nom (Urine sed) NONE SEEN Normal NONE SEEN [facility] Comment on above: Performed By: #### P MIRANDA DIAZ, ERUR #### [facility] [address] [address] [address] Joy Vargas Epithelial cells LM Ql (Urine sed) FEW Abnormal NONE SEEN /RARE [facility] Comment on above: Performed By: #### P MIRANDA DIAZ, ERUR #### [facility] [address] [address] [address] Joy Vargas MUCOUS NONE SEEN Normal NONE SEEN [facility] Comment on above: Performed By: #### MIRANDA AMANDA, ERUR #### [facility] [address] [address] [address] Joy Vargas RBC 0-2 Normal 0-2 [facility] Comment on above: Performed By: #### MIRANDA AMANDA, ERUR #### [facility] [address] [address] [address] Joy Vargas WBC 0-2 Abnormal NONE SEEN [facility] Comment on above: Performed By: #### MIRANDA AMANDA, ERUR #### [facility] [address] [place] [address] Dr. Joy Vargas XR ABD FLAT UP_PA [...] by: DORIAN SHARMA Date: 2022-03-28 20:31 Normal [facility] Pap IG,rfx Aptima HPV all pt hon 03-15-2022 . . Normal [facility] Comment on above: Performed By: #### C VDTBH #### [facility] [address] [place] [address] Dr. Joy Vargas DIAGNOSIS: Comment Abnormal [facility] Comment on above: Result Comment: EPIT HELIAL CELL ABNORMALITY. ATYPICAL SQUAMOUS CELLS OF UNDETERMINED SIGNIFICANCE (ASC-US). Performed By: #### C VDTBH #### [facility] [address] [address] [address] Joy Vargas Electronically signed by: Comment Normal [facility] Comment on above: Result Comment: Bora Yu MD, Pathologist Performed By: #### C VDTBH #### [facility] [address] [place] [address] Dr. Joy Vargas HPV Aptima Negative Normal Negative [facility] Comment on above: Result Comment: This nucleic acid amplification test detects fourteen high-risk HPV types (16,18,31,33,35,39,45,51,52,56,58,59,66,68) without differentiation. Performed By: #### C VDTBH #### [facility] [address] [place] [address] Dr. Joy Vargas Methodology: Comment Normal [facility] Comment on above: Result Comment: This liquid based ThinPrep(R) pap test was screened with the use of an image guided system. Performed By: #### C VDTBH #### [facility] [address] [place] [address] Dr. Joy Vargas Note: Comment Normal [facility] Comment on above: Result Comment: The Pap smear is a screening test designed to aid in the detection of premalignant and malignant conditions of the uterine cervix. It is not a diagnostic procedure and should not be used as the sole means of detecting cervical cancer. Both false-positive and false-negative reports do occur. . Performed By: #### C VDTBH #### [facility] [address] [place] [address] Dr. Joy Vargas Pathologist Provided ICD10 Comment Normal [facility] Comment on above: Result Comment: [id number]. [id number] Performed By: #### C VDTBH #### [facility] [address] [place] [address] Dr. Joy Vargas Performed by: Comment Normal [facility] Comment on above: Result Comment: Sera Song, Paper Cutting Machine Operator (ASCP) Performed By: #### C VDTBH #### [facility] [address] [place] [address] Dr. Joy Vargas Reflex Criteria: Comment Normal [facility] Comment on above: Result Comment: See below for HPV testing results. . Performed By: #### C VDTBH #### [facility] [address] [place] [address] Dr. Joy Vargas Specimen adequacy: Comment Normal [facility] Comment on above: Result Comment: Sati sfactory for evaluation. Endocervical and/or squamous metaplastic cells (endocervical component) are present. Performed By: #### C VDTBH #### [facility] [address] [place] [address] Dr. Joy Vargas CBC AUTO DIFFon 11-09-2021 BASO # 0.0 103/ul Normal 0.0-0.1 [facility] Comment on above: Performed By: #### C BC #### [facility] [address] [place] [address] Dr. Joy Vargas Basophils/100 WBC (Bld) 0.3 % Normal 0.2-2.0 [facility] Comment on above: Performed By: #### C BC #### [facility] [address] [place] [address] Dr. Joy Vargas EO # 0.1 103/ul Normal 0.0-0.7 [facility] Comment on above: Performed By: #### C BC #### [facility] [address] [place] [address] Dr. Joy Vargas Eosinophils/100 WBC (Bld) 0.9 % Normal 0.9-7.0 [facility] Comment on above: Performed By: #### C BC #### [facility] [address] [place] [address] Dr. Joy Vargas Erythrocyte distribution width (RBC) [Ratio] 12.8 % Normal 11.0-15.0 [facility] Comment on above: Performed By: #### C BC #### [facility] [address] [place] [address] Dr. Joy Vargas Hematocrit (Bld) [Volume fraction] 37.2 % Normal 36.0-48.0 [facility] Comment on above: Performed By: #### C BC #### [facility] [address] [place] [address] Dr. Joy Vargas Hemoglobin (Bld) [Mass/Vol] 12.4 g/dL Normal 12.0-16.0 [facility] Comment on above: Performed By: #### C BC #### [facility] [address] [place] [address] Dr. Joy Vargas IG # 0.02 10e3/ul Normal 0.00-0.03 [facility] Comment on above: Performed By: #### C BC #### [facility] [address] [place] [address] Dr. Joy Vargas IG % 0.2 % Normal 0.0-0.5 [facility] Comment on above: Performed By: #### C BC #### [facility] [address] [place] [address] Dr. Joy Vargas LYMPH # 2.7 103/ul Normal 1.2-3.8 [facility] Comment on above: Performed By: #### C BC #### [facility] [address] [place] [address] Dr. Joy Vargas Lymphocytes/100 WBC (Bld) 29.9 % Normal 20.5-60.0 [facility] Comment on above: Performed By: #### C BC #### [facility] [address] [place] [address] Dr. Joy Vargas MANUAL DIFF REQ NO Normal [facility] Comment on above: Performed By: #### C BC #### [facility] [address] [address] [address] Joy Vargas MCH (RBC) [Entitic mass] 27.9 pg Normal 26.7-34.0 [facility] Comment on above: Performed By: #### C BC #### [facility] [address] [place] [address] Dr. Joy Vargas MCHC (RBC) [Mass/Vol] 33.3 g/dL Normal 29.9-35.2 [facility] Comment on above: Performed By: #### C BC #### [facility] [address] [place] [address] Dr. Joy Vargas MCV (RBC) [Entitic vol] 83.8 fL Normal 81.0-99.0 [facility] Comment on above: Performed By: #### C BC #### [facility] [address] [place] [address] Dr. Joy Vargas MONO # 0.6 103/ul Normal 0.3-0.8 [facility] Comment on above: Performed By: #### C BC #### [facility] [address] [place] [address] Dr. Joy Vargas Monocytes/100 WBC (Bld) 6.2 % Normal 1.7-12.0 [facility] Comment on above: Performed By: #### C BC #### [facility] [address] [place] [address] Dr. Joy Vargas NEUT # 5.7 103/ul Normal 1.4-6.5 [facility] Comment on above: Performed By: #### C BC #### [facility] [address] [place] [address] Dr. Joy Vargas Neutrophils/100 WBC (Bld) 62.5 % Normal 43.0-75.0 [facility] Comment on above: Performed By: #### C BC #### [facility] [address] [place] [address] Dr. Joy Vargas Platelet mean volume (Bld) [Entitic vol] 8.9 fL Critically low 9.5-13.5 [facility] Comment on above: Performed By: #### C BC #### [facility] [address] [address] [address] Joy Vargas PLT 344 103/ul Normal 150-450 [facility] Comment on above: Performed By: #### C BC #### [facility] [id number] Joy Vargas RBC 4.44 106/ul Normal 4.20-5.40 [facility] Comment on above: Performed By: #### C BC #### [facility] [address] [address] [address] Joy Vargas WBC 9.0 103/ul Normal 4.0-11.0 [facility] Comment on above: Performed By: #### C BC #### [facility] [address] [address] [address] Joy Vargas PREG HCG QUALon 11-09-2021 , QUAL Negative Normal NEGATIVE [facility] Comment on above: Performed By: #### C VDTBH #### [facility] [address] [address] [address] Joy Vargas Covid-19 PCR (CVDTB)on 10-06 SARS-CoV-2 (COVID-19) RNA NATHAN+probe Ql (Unsp spec) Not detected Normal NOT DETECTED [facility] Comment on above: Result Comment: This test is not yet approved or cleared by the [place] FDA. When there are no FDA-approved or cleared tests available, and other criteria are met, FDA can make tests available under an emergency access mechanism called an Emergency Use Authorization (EUA). The EUA for this test is supported by the [employer]p Platforms of Health and Human Service's (HHS's) declaration [...] SARS-CoV-2. Performed By: #### C VDTBH #### [facility] [address] [address] [address] Joy Vargas Covid-19 PCR ([facility])on 10-06 SARS-CoV-2 (COVID-19) RNA NATHAN+probe Ql (Unsp spec) Not detected Normal NOT DETECTED [facility] Comment on above: Result Comment: When [...] for this test is supported by the [place] of Health and Human Service's declaration that [...] longer be used). Performed By: #### C VDTBH #### [facility] [address] [place] [address] Dr. Joy Vargas PAP ACOG PANEL 2: 21 to 30on 09-10-2021 . . Normal [facility] Comment on above: Performed By: #### [id number] #### [facility] [address] [place], [place] [address] Dr. Joy Vargas Age Gdln ACOG Testing - Normal [facility] Comment on above: Performed By: #### [id number] #### [facility] [address] [place], [place] [address] Dr. Joy Vargas DIAGNOSIS: Comment Abnormal [facility] Comment on above: Result Comment: EPIT HELIAL CELL ABNORMALITY. ATYPICAL SQUAMOUS CELLS, CANNOT EXCLUDE HIGH-GRADE SQUAMOUS INTRAEPITHELIAL LESION (ASC-H). Performed By: #### [id number] #### [facility] [address] [place] [address] Dr. Joy Vargas Electronically signed by: Comment Normal [facility] Comment on above: Result Comment: Arianna Nina MD, Pathologist Performed By: #### 4 [id number] #### [facility] [address] [place] [address] Dr. Joy Vargas Methodology: Comment Normal [facility] Comment on above: Result Comment: This liquid based ThinPrep(R) pap test was screened with the use of an image guided system. Performed By: #### 4 [id number] #### [facility] [address] [place] [address] Dr. Joy Vargas Note: Comment Normal [facility] Comment on above: Result Comment: The Pap smear is a screening test designed to aid in the detection of premalignant and malignant conditions of the uterine cervix. It is not a diagnostic procedure and should not be used as the sole means of detecting cervical cancer. Both false-positive and false-negative reports do occur. . Performed By: #### [id number] #### [facility] [address] [place] [address] Dr. Joy Vargas Pathologist Provided ICD10 Comment Normal [facility] Comment on above: Result Comment: R87. [id number] Performed By: #### [id number] #### [facility] [address] [place] [address] Dr. Joy Vargas Performed by: Comment Normal [facility] Comment on above: Result Comment: Aileen Meza, Paper Cutting Machine Operator (ASCP) Performed By: #### 4 [id number] #### [facility] [address] [place] [address] Dr. Joy Vargas Recommendation: Comment Abnormal [facility] Comment on above: Result Comment: Sugg est follow up as clinically appropriate. Performed By: #### 4 [id number] #### [facility] [address] [place] [address] Dr. Joy Vargas Reflex Criteria: Comment Normal [facility] Comment on above: Result Comment: The HPV DNA reflex criteria were not met with this specimen result therefore, no HPV testing was performed. . Performed By: #### 4 [id number] #### [facility] [address] [place], [place] [address] Dr. Joy Vargas Specimen adequacy: Comment Normal [facility] Comment on above: Result Comment: Sati sfactory for evaluation. Endocervical and/or squamous metaplastic cells (endocervical component) are present. Performed By: #### 4 [id number] #### [facility] [address] [address] [address] Joy Vargas Vital Signs Date Time Vital Sign Value Performing Clinician Facility 07-21-2023 13:06-0400 Body height 160.02 cm [facility] 07-21-2023 13:06-0400 Body mass index (BMI) [Ratio] 35.4 kg/m2 [facility] 07-21-2023 13:06-0400 Body temperature 98.2 [degF] [facility] 07-21-2023 13:06-0400 Body weight 90.71 kg [facility] 07-21-2023 13:06-0400 Heart rate 98 /min [facility] 07-21-2023 13:06-0400 Respiratory rate 16 /min [facility] 07-21-2023 13:06-0400 SaO2% (BldA) [Mass fraction] 98 % [facility] 09-06-2022 12:25-0400 Body height 160.02 cm Ludivina Mac Other [facility] [employer] Other 09-06-2022 12:25-0400 Body mass index (BMI) [Ratio] 34.01 kg/m2 Ludivina Mac Other [facility] Other 09-06-2022 12:25-0400 Body temperature 98.5 [degF] Ludivina Mac Other [facility] Other 09-06-2022 12:25-0400 Body weight 87.09 kg Ludivina Mac Other [facility] Other 09-06-2022 12:25-0400 Respiratory rate 18 /min Ludivina Mac Other [facility] Other 09-06-2022 12:25-0400 SaO2% (BldA) [Mass fraction] 98 % Ludivina Mac Other [facility] Other Encounters Encounter Date Encounter Type Care Provider Facility Start: 10-15-2023 End: 10-15-2023 ambulatory MILADIS KIRK Not Available Start: 09-24-2023 End: 09-24-2023 Patient encounter procedure MD Alek Posey Work Phone: [facility] Work Phone: Start: 09-24-2023 End: 09-24-2023 ambulatory MD Alek Posey Work Phone: [facility] Work Phone: Start: 09-24-2023 End: 09-24-2023 ambulatory ALEK POSEY Not Available Start: 09-17-2023 End: 09-17-2023 ambulatory TREVOR KILLIAN Not Available Start: 08-25-2023 End: 08-25-2023 ambulatory ALEK POSEY Not Available Start: 07-21-2023 End: 07-21-2023 ambulatory [facility] Work Phone: Start: 07-21-2023 End: 07-21-2023 Patient encounter procedure [facility] Work Phone: Start: 09-06-2022 End: 09-06-2022 ambulatory Ludivina Mac Other [facility] Other Start: 09-06-2022 Office outpatient ne w 30 minutes Ludivina Mac [facility] Start: 07-09-2022 End: 07-10-[address] TREVOR KILLIAN . Facility:[facility] Start: 07-03-2022 Encounter for cervic al smear to confirm findings of recent normal smear following initial abnormal smear DR TREVOR KILLIAN . [facility] Start: 07-02-2022 End: 07-02-[address] TREVOR [...] laboratory examination DR TREVOR KILLIAN . [facility] Start: 11-03-2021 End: 11-03-2021 ambulatory ADITYA HARPER Facility:[facility] Start: 10-31-2021 End: 11-01-[address] TREVOR KILLIAN . Facility:[facility] Start: 10-31-2021 End: 11-01-2021 Encounter for preprocedural laboratory examination DR TREVOR KILLIAN . Facility:[facility] Start: 10-30-2021 Encounter for other preprocedural examination DR TREVOR KILLIAN . [facility] Start: 10-30-2021 End: 10-30-[address] FORTINO [...] Phone: Payers Date Payer Category Payer Self-pay [id number] 1990 Unknown [id number] 1990 Unknown [id number] 2.16.840.1.057885.3.579.2.593 1991 Unknown [id number] 2.16.840.1.350607.3.579.2.593 1991 Unknown [id number] 2.16.840.1.566982.3.579.2.593 1991 Unknown [id number] 2.16.840.1.138661.3.579.2.593 1991 Unknown [id number] 2.16.840.1.543356.3.579.2.593 1991 Unknown [id number] 2.16.840.1.386318.3.579.2.593 1991 Unknown [id number] 2.16.840.1.446190.3.579.2.593 1991 Unknown [id number] 2.16.840.1.856866.3.579.2.593 1991 Unknown [id number] 2.16.840.1.223930.3.579.2.593 1991 Unknown [id number] 2.16.840.1.434102.3.579.2.593 1991 Unknown [id number] 2.16.840.1.695014.3.579.2.593 1991 Unknown [id number] 2.16.840.1.462324.3.579.2.1259 1991 Unknown [id number] 2.16.840.1.251568.3.579.2.1259 1991 Unknown [id number] 2.16.840.1.948477.3.579.2.1259 1991 Unknown [id number] 2.16.840.1.375961.3.579.2.1259 1959 Unknown [id number] 1959 Unknown [id number] Medicaid [facility] [id number] Unknown [id number] 2.16.840.1.700835.3.579.2.531 Social History Date Type Detail Facility Unknown if ever smoked [facility] Other Sex Assigned At Sex Assigned At Bir th [facility] Other Start: 07-12-2018 Tobacco smoking status NHIS Never smoked tobacco (finding) [facility] Start: 1990 Sex Assigned At Female F [facility] Evaluation note 09-06-2022 Note Date & [...] understanding and is agreeable to treatment plan [facility] Other Clinical Note 11-09-2021 Note Date & Type Note Facility 11-09-2021 Note OPERATIVE NOTE OPERATION DATE: 11/09/2021 PROCEDURE: LEEP with top hat. PREOPERATIVE DIAGNOSIS: Cervical dysplasia. POSTOPERATIVE DIAGNOSIS: Cervical dysplasia. ANESTHESIA: General. SURGEON: Trevor Killian D.O. REGISTERED RADIOLOGIC TECHNOLOGIST: None. FINDINGS: Cervical dysplasia at the 9 [...] to Recovery Room in stable condition. [facility] Evaluation note Note Date & Type Note Facility Evaluation note No assessment information [facility] Work Phone: History general Narrative - Reported Note Date & Type Note Facility History general Narrative - Reported Type Surgical History appendectomy Surgical History hernia repair Surgical History ablasion cervical [facility] [employer] Other Summary Purpose Family History No Family [...] and content) DATE CREATED AUTHOR 07/11/2022 [facility] DATE CREATED AUTHOR AUTHOR'S ORGANIZ ATION 10/05/2023 [facility] DATE CREATED AUTHOR AUTHOR'S ORGANIZ ATION 10/21/2023 [facility] EPIC REASON FOR VISIT (unrecogniz ed section and content) left ear pain, mild sore thr oat Care Teams (unrecognized sec tion and content) Team Status: Active Member Role Status Dates Alek Posey MD Primary Care Provider Active Team Status: Inactive Member Role Status Dates TEMO BaldwinC Attending Provider Active S tart: July 21, [...] BE BASED ON THE PRIMARY CLINICAL RECORDS. [facility] [employer] provides no warranty or guarantee of the accuracy or completeness of information in this document.
--- NOTE | 2023-11-02 20:02 | ECG_ITS ---
[facility] Test Date: 2023-11-02 Pat Name: BROOK WILD Department: Room: - Gender: Female [employer]: : 1990 Requested By: [id number] Order Number: [id number] Reading MD: SAGE BECERRA Measurements Intervals [place] Rate: 72 P: 43 TN: 168 QRS: 21 QRSD: 78 T: 18 QT: 378 QTc: 402 Interpretive Statements 1100 Sinus rhythm 9110 normal ECG No previous ECG available for comparison Electronically Signed On 11-03-2023 6:43:33 EDT by SAGE BECERRA
--- NOTE | 2023-11-02 20:38 | ED.DIZZY1 ---
HPI - Dizziness General Chief Complaint: Dizziness Stated Complaint: Dizziness Time Seen by Provider: 11/02/23 19:08 Source: patient Mode of arrival: walk-in History of Present Illness HPI Narrative: patient presents complaining of a sensation that feels like her head wants to go back. Transient sensation for few seconds. Never has passed out. No associated chest pain or dyspnea or nausea. Past history of migraine headache. No associated headache. Denies feeling off balance or any vertiginous symptoms Related Data Home Medications ?Medication ?Instructions ?Recorded ?Confirmed citalopram 20 mg tablet 20 mg PO DAILY 11/02/23 11/02/23 fremanezumab-vfrm 225 mg/1.5 mL mg subcut 11/02/23 subcutaneous auto-injector (ShopzillaovAhometo) methocarbamol 750 mg tablet 750 mg PO Q8H 11/02/23 11/02/23 sumatriptan succinate 100 mg tablet 100 mg PO Q2H 11/02/23 11/02/23 Allergies Allergy/AdvReac Type Severity Reaction Status Date / Time No Known Drug Allergies Allergy Verified 11/02/23 19:46 Review of Systems ROS Status of ROS 10 or more systems reviewed and unremarkable except as noted in history and below Exam Constitutional Vital Signs, click to edit/add: Last Vital Signs Temp 98.1 F 11/02/23 19:34 Pulse 65 11/02/23 21:50 Resp 80 H 11/02/23 21:50 BP 158/105 H 11/02/23 21:30 Pulse Ox 100 11/02/23 19:34 O2 Del Method Room Air 11/02/23 19:34 Common normals: no apparent distress, average body habitus, oriented x3, no limitations, healthy appearing, alert and well nourished [facility] Common normals: normocephalic and head/scalp atraumatic Other: mild fluid bulge behind both MSm0ohd patient this is chronic) Eye Common normals: PERRL, EOMs intact bilaterally and conjunctivae normal Respiratory Common normals: normal respiratory effort, no retractions, no use of accessory muscles and clear to auscultation bilaterally Cardio Common normals: regular rate, regular rhythm, S1 normal heart sound and S2 normal heart sound GI Common normals: Normal to inspection, nondistended, normoactive bowel sounds present, soft to palpation and non-tender Extremity Common normals: normal to inspection and full ROM Neuro Common normals: oriented x3, CN's II-XII intact bilaterally, moves all extremities, no focal motor deficits and no sensory deficits noted Psych Appearance: grossly normal Course Vital Signs Vital signs: Vital Signs Temperature 98.1 F 11/02/23 19:34 Pulse Rate 77 11/02/23 19:34 Respiratory Rate 16 11/02/23 19:34 Blood Pressure 150/80 H 11/02/23 19:34 Pulse Oximetry 100 11/02/23 19:34 Oxygen Delivery Method Room Air 11/02/23 19:34 Temperature 98.1 F 11/02/23 19:34 Pulse Rate 65 11/02/23 21:50 Respiratory Rate 80 H 11/02/23 21:50 Blood Pressure 158/105 H 11/02/23 21:30 Pulse Oximetry 100 11/02/23 19:34 Oxygen Delivery Method Room Air 11/02/23 19:34 MDM - Dizziness MDM Narrative Medical decision making narrative: patient presents with atypical presentation. Sensation that her head wants to go back like in a passing out episode but she never comes close to passing out. last a few seconds and resolves. No vertiginous symptoms. workup in the department unremarkable. She was orthostatic but no symptoms. Hydrated and no change. At the time of discharge she was asymptomatic but the symptoms come and go and are very transient. Unclear as to cause but clinically stable and discharged to continue workup via her PCP Lab Data Labs: Lab Results 11/02/23 Range/Units 20:11 WBC 8.9 (4.0-11.0) 10^3/uL RBC 4.96 (4.20-5.40) 10^6/uL Hgb 14.2 (12.0-16.0) g/dL Hct 43.0 (36.0-48.0) % MCV 86.7 (81.0-99.0) fL MCH 28.6 (26.7-34.0) pg MCHC 33.0 (29.9-35.2) g/dL RDW 13.8 (11.0-15.0) % Plt Count 309 (150-450) 10^3/uL MPV 10.8 (9.5-13.5) fL Neut % (Auto) 56.2 (43.0-75.0) % Lymph % (Auto) 36.4 (20.5-60.0) % [place] % (Auto) 5.1 (1.7-12.0) % Eos % (Auto) 1.4 (0.9-7.0) % Baso % (Auto) 0.7 (0.2-2.0) % Neut # (Auto) 5.0 (1.4-6.5) 10^3/uL Lymph # (Auto) 3.2 (1.2-3.8) 10^3/uL [place] # (Auto) 0.5 (0.3-0.8) 10^3/uL Eos # (Auto) 0.1 (0.0-0.7) 10^3/uL Baso # (Auto) 0.1 (0.0-0.1) 10^3/uL Abs Immat Gran (auto) 0.02 (0.00-0.03) 10^3/uL Imm/Tot Granulo (auto) 0.2 (0.0-0.5) % Sodium 135 L (136-145) mmol/L Potassium 4.4 (3.5-5.1) mmol/L Chloride 100 (98-107) mmol/L Carbon Dioxide 24.8 (21.0-32.0) mmol/L Anion Gap 14.6 BUN 10.0 (7.0-18.0) mg/dL Creatinine 0.87 (0.55-1.02) mg/dL Est GFR ( Amer) >60 (>=60) Est GFR (Non-Af Amer) >60 (>=60) BUN/Creatinine Ratio 11.5 Glucose 89 (74-106) mg/dL Calcium 9.6 (8.5-10.1) mg/dL Troponin I High Sens <4.0 L (4.0-51.3) pg/mL Discharge Plan Discharge Stand Alone Forms: Portal Instructions Chief Complaint: Dizziness Clinical Impression: Dizziness Patient Disposition: Home, Self-Care Prescriptions / Home Meds: No Action sumatriptan succinate 100 mg tablet 100 mg PO Q2H Rx Instructions: TAKE 1 TABLET BY MOUTH at the onset OF migraine, may repeat after 2 (TWO) hours no more than twice a day and 2 (TWO) days a week 9 tabs to last 30 days citalopram 20 mg tablet 20 mg PO DAILY methocarbamol 750 mg tablet 750 mg PO Q8H [employer] Autoinjector 225 mg/1.5 mL auto-injector subcut Print Language: Turkmen Instructions: Lightheadedness (ED) Additional Instructions: follow up with Dr Denis this upcoming week for recheck and continued workup Referrals: Alek Denis MD [Primary Care Provider] - 1 week
--- NOTE | 2023-11-02 20:57 | XR_ITS ---
The [address] [address] Patient Name: BROOK WILD MRN: [id number] date: 1990 Sex: F Assigned Patient Location: ER Current Patient Location: ER Accession/Order Number: [id number] Exam Date: 11/02/2023 21:05 Report Date: 11/02/2023 21:45 At the request of: ADITYA HARPER Procedure: XR chest 1V EXAMINATION:XR chest 1V INDICATION:light headed COMPARISON:None TECHNIQUE:A single frontal view of the chest is submitted. FINDINGS: The cardiomediastinal silhouette is not enlarged. The pulmonary vascularity is within normal limits. The lungs are clear based on chest radiography. There is no costophrenic angle blunting. XR/XR chest 1V IMPRESSION: Unremarkable plain film examination of the chest. Electronically authenticated by: ILIANA GABRIEL Date: 11/02/2023 21:45
[2023-11-02 21:04] LABS: Basophils Absolute Auto 0.1 10^3/uL (0.0-0.1); Basophils Percent Auto 0.7 % (0.2-2.0); Eosinophils Absolute Auto 0.1 10^3/uL (0.0-0.7); Eosinophils Percent Auto 1.4 % (0.9-7.0); Hemoglobin 14.2 g/dL (12.0-16.0); Immature Granulocytes Abs Auto 0.02 10^3/uL (0.00-0.03); Immature Granulocytes Pct Auto 0.2 % (0.0-0.5); Lymphocytes Absolute Auto 3.2 10^3/uL (1.2-3.8); Lymphocytes Percent Auto 36.4 % (20.5-60.0); Mean Corpuscular Hemoglobin 28.6 pg (26.7-34.0); Mean Corpuscular Volume 86.7 fL (81.0-99.0); Mean Platelet Volume 10.8 fL (9.5-13.5); Monocytes Absolute Auto 0.5 10^3/uL (0.3-0.8); Monocytes Percent Auto 5.1 % (1.7-12.0); Neutrophils Percent Auto 56.2 % (43.0-75.0); Platelet Count 309 10^3/uL (150-450); Red Blood Count 4.96 10^6/uL (4.20-5.40); Red Cell Distribution Width 13.8 % (11.0-15.0); White Blood Count 8.9 10^3/uL (4.0-11.0)
[2023-11-02 21:17] LABS: Anion Gap 14.6; BUN Creatinine Ratio 11.5; Calcium 9.6 mg/dL (8.5-10.1); Carbon Dioxide 24.8 mmol/L (21.0-32.0); Chloride 100 mmol/L (98-107); Estimated GFR (African America >60 (>=60); Estimated GFR (Non-African Ame >60 (>=60); Glucose 89 mg/dL (74-106); Potassium 4.4 mmol/L (3.5-5.1); Sodium 135 mmol/L (136-145); Troponin I High Sensitivity <4.0 pg/mL (4.0-51.3)
[2023-11-02] MEDS: 0.9 % SODIUM CHLORIDE 1,000 ML 999 ML IV (21:24)
[2023-11-02] MEDS: METHYLPREDNISOLONE SOD SUCC PF 125 MG/2 ML VIAL IVP (21:41)
== END 2023-11-02 23:35 | disposition home or self-care (01) ==
PROVIDERS: Emergency Provider Internal Medicine; PCP Family Medicine
DX: R42 Dizziness and giddiness (principal)
CPT/HCPCS: 36415; 71045; 80048; 84484; 85025; 93005; 96361; 96374; 99285; J2919

== ENCOUNTER 2024-10-06 19:31 | Outpatient (REF) | payer BC, SELFPAY ==
--- OUTSIDE RECORDS SUMMARY | 2013-12-27 05:53 | XMS_ITS | Continuity of Care Document ---
Author Organization [facility] Address [address] [place] [address] Phone Care Team Providers Care Instructional Support Services Director Name Role Phone Ila Bridges Unavailable Unavaila ble Allergies, Adverse Reactions, Alerts Substance Reaction Status Criticality No Known allergies Procedures Procedure Date PREV VISIT, NEW, AGE 18-39 PREV VISIT, NEW, AGE 18-39 [facility] SPECIMEN HANDLING (GC/CHLAMYDIA) Dec Orthocyclen THIN PREP TIS LIQUID-BASED Advance Directives Directive Yes / No Effective Date File Name Resuscitation Not Answered N/A N/A Life Support Not Answered N/A N/A Intubation Not Answered N/A N/A Antibiotics Not Answered N/A N/A IV Fluid Support Not Answered N/A N/A Tube Feed Not Answered N/A N/A Other Directive N/A N/A WARNING:The information contained in this section is historical and is provided for information only and does not constitute a legal document or any assurance that the information is still accurate. Please verify the information with the yo of the legal document before using it for clinical purposes. Encounters Encounter Description Practice Location Reason(s) For Visit Diagnoses Date Provider Providers Copied on Encounter [facility], [address], [place], [id number] , [place] tel:[phone] [facility] lab result (chief complaint) No Information [address] Parrish Thorpe. [address], [place], [id number] , [place]. tel:[phone] PREV VISIT, NEW, AGE 18-39 [facility], [address] [facility], [place], [place], [id number] , [place] tel: [phone] [facility] est care (chief complaint) Other specified contraceptive managementGynecologic al Examination 0201 [address]. [address] [facility], [place], [place], [id number] , [place]. tel: [phone] Family History Family Member Type Diagnosis Age At Onset Father Problem (finding) hypertension Mother Problem (finding) liver cancer Problem (finding) Family history of Diabe shantal mellitus Father Problem (finding) diabetes melli tus in first degree relative Mother Problem (finding) heart disease Problem (finding) Family history of hyper tension Payers Payer name Insurance type Covered republican ID Authoriza tion(s) No Information Social History Type Description Quantity Date Captured Comments Alcohol Use Details Unknown Caffeine Use Details Unknown Tobacco Use Status No Information Smoking Status No Information Sex Female Chief Complaint And Reason For Visit From encounter dated '12/27/2013 09:53'. lab result (chief complaint) Reason For Referral Reason For Referral No Information Plan Of Treatment Date Type Action Status Goal H&P. Due on due Goal PAP. Due on due History Of Present Illness Encounter Date Complaint History Of Prese nt Illness No Information Functional Status Date Functional Assessmen t No Information Instructions Date Instruction Additional Infor mation No Information Assessments Type Assessment Date No Information Patient Care Teams Name Effective Dates (start - stop) Status Members No Information
--- OUTSIDE RECORDS SUMMARY | 2024-10-06 15:00 | XMS_ITS | Encounter Summary ---
Author Organization [facility] Address [address] [facility] [place]án [place] [address] Care Team Providers Care Manufacturing Maintenance Technician Name Role Phone Alek Denis MD Unavailable Alek Denis MD Primary Care Provider [phone] Reason for Visit * Reason Comments Well Women Visit Encounter Details Date Type Department Care Team ([facility] Contact Info) Description 10/06/2024 3:00 PM EDT Office Visit [facility] [address] [place] [phone] Jan Killian [facility] [place], [place] [id number] Well woman exam with routine gynecological exam; PCOS (polycystic ovarian syndrome); Dyspareunia, female; Cervicitis and endocervicitis; IUD check up Social History Tobacco Use Types Packs/Day Years Used Date Smoking Tobacco: Never Smokeless Tobacco: Never Alcohol Use Standard Drinks/Week Comments Never 0 (1 standard drink = 0.6 oz pur e alcohol) Comments No Sex and Gender Information Value Date Recorded Sex Assigned at Not on file Legal Sex Female 6:44 PM EDT Gender Identity Not on file Sexual Orientation Not on file documented as of this encounter Plan of Treatment Upcoming Encounters Date Type Department Care Team (Late Contact Info) Description 10/19/2024 9:00 AM EDT Ancillary Procedure [facility] [address] [place] [address] 11/02/2024 11:20 AM EDT Office Visit [facility] [address] [place] [phone] Jan Killian, [address] [place] [address] 11/19/2024 9:45 AM EDT Office Visit [facility] [address] [place] [address] Alek Denis MD [address] [place] [address] 10/11/2025 2:00 PM EDT Office Visit [facility] [address] [place] [address] Jan Killian[address] [place] [address] Scheduled Orders Name Type Priority Associated Diagnoses Orde r Schedule Pap Smear Pathology and Cytology Routine Well woman exam with routine gynecological exam Ordered: 10/06/2024 HPV DNA probe, amplified Microbiology Routine Well woman exam with routine gynecological exam Ordered: 10/06/2024 hCG, quantitative, Lab Routine PCOS (polycystic ovarian syndrome) Ordered: 10/06/2024 TSH Lab Routine PCOS (polycystic ovarian syndrome) Ordered: 10/06/2024 T4, free Lab Routine PCOS (polycystic ovarian syndrome) Ordered: 10/06/2024 CBC and differential Lab Routine PCOS (polycystic ovarian syndrome) Ordered: 10/06/2024 Follicle stimulating hormone Lab Routine PCOS (polycystic ovarian syndrome) Ordered: 10/06/2024 Luteinizing hormone Lab Routine PCOS (polycystic ovarian syndrome) Ordered: 10/06/2024 DHEA-sulfate Lab Routine PCOS (polycystic ovarian syndrome) Ordered: 10/06/2024 DHEA Lab Routine PCOS (polycystic ovarian syndrome) Expected: 10/06/2024 (Approximate), Expires: 10/06/2025 Testosterone, free, total Lab Routine PCOS (polycystic ovarian syndrome) Dyspareunia, female Ordered: 10/06/2024 Estradiol Lab Routine PCOS (polycystic ovarian syndrome) Dyspareunia, female Ordered: 10/06/2024 Estrone Lab Routine PCOS (polycystic ovarian syndrome) Dyspareunia, female Ordered: 10/06/2024 Progesterone Lab Routine PCOS (polycystic ovarian syndrome) Dyspareunia, female Ordered: 10/06/2024 US Pelvis w/ TV Imaging Routine Dyspareunia, female IUD check up Expected: 10/06/2024, Expires: 04/08/2025 SURESWAB(R) ADVANCED VAGINITIS PLUS, TMA Pathology and Cytology Routine Dyspareunia, female Cervicitis and endocervicitis Ordered: 10/06/2024 CHLAMYDIA TRACHOMATIS (GENITO/STI) Lab Routine Dyspareunia, female Cervicitis and endocervicitis Ordered: 10/06/2024 Neisseria gonorrhea DNA probe, direct Lab Routine Dyspareunia, female Cervicitis and endocervicitis Ordered: 10/06/2024 documented as of this encounter Visit Diagnoses Diagnosis Well woman exam with routine gynecological exam Routine gynecological examination PCOS (polycystic ovarian syndrome) Polycystic ovaries Dyspareunia, female Cervicitis and endocervicitis IUD check up documented in this encounter Care Teams Manufacturing Maintenance Technician Relationship Specialty Start Date End Date Alek Denis MD [address] [place] [address] [facility] 07/07/23 Alek Denis MD [address] [place] [address] PCP - General Family Medicine 08/25/23 documented as of this encounter
--- OUTSIDE RECORDS SUMMARY | 2024-10-06 19:35 | XMS_ITS | Encounter Summary ---
Author Organization [facility] Address [address] [place] [address] Care Team Providers Care Seismograph Supervisor Name Role Phone Alek Denis MD Primary Care Provider [phone] Alek Denis MD Unavailable Alek Denis MD Primary Care Provider [phone] Encounter Details Date Type Department Care Team (Late st Contact Info) Description 04/13/2023 Orders Only [facility] [address] [place] [address] Alek Denis MD [address] [place] [address] Social History Tobacco Use Types Packs/Day Years Used Date Smoking Tobacco: Never Alcohol Use Standard Drinks/Week Comments [...] Encounters Date Type Department Care Team (Late st Contact Info) Description 10/19/2024 9:00 AM EDT Ancillary Procedure [facility] [place] [address] 11/02/2024 11:20 AM EDT Office Visit [facility] [address] [place] [address] Jan Killian, DO [address] [facility] [place] [address] 11/19/2024 9:45 AM EDT Office Visit [facility] [address] [place] [address] Alek Denis MD [address] [place] [address] 10/11/2025 2:00 PM EDT Office Visit [facility] [address] [facility] [place] [address] Jan Killian, DO [address] [facility] [address] [place] [place], [place] [phone] documented as of this encounter Visit Diagnoses Not on filedocumented in this encounter Care Teams Seismograph Supervisor Relationship Specialty Start Date End Date Alek Denis MD PCP - General Family Medicine 10/02/22 08/24/23 Alek Denis MD [address] [place] [address] PCP - [employer] 07/07/23 Alek Denis MD [address] [place] [address] PCP - General Family Medicine 08/25/23 documented as of this encounter
--- OUTSIDE RECORDS SUMMARY | 2024-10-06 19:35 | XMS_ITS | Clinical Summary ---
Author Organization Rhapso tem Address [id number] [address] [place] [address] Care Team Providers Care Aemt Name Role Phone Monie Ta QI SPECIALIST-[facility] Primary Care Provi martina Allergies No known active allergies Medications topiramate (TOPAMAX) 50 mg tabletIndication s:Migraine without aura and without status migrainosus, not intractable Take 1 tablet (50 mg total) by mouth nightly. 30 tablet 1 08/24/2018 Active escitalopram (LEXAPRO) 10 mg tabletIndication s:Anxiety and depression Take 1 tablet (10 mg total) by mouth daily. 30 tablet 2 08/24/2018 Active ferrous sulfate 325 (65 FE) mg EC tabletIndication s:History of anemia Take 1 tablet (325 mg total) by mouth 2 (two) times a day. 60 tablet 3 08/24/2018 Active ergocalciferol (DRISDOL) 50,000 unit capsuleIndicatio ns:Low vitamin D level Take 1 capsule (50,000 Units total) by mouth once a week. 12 capsule 1 08/24/2018 Active Active Problems Problem Noted Date Diagnosed Date Anxiety and depression 08/24/2018 Slow transit constipation 08/24/2018 History of anemia 08/24/2018 Low vitamin D level 08/24/2018 Migraine without aura and wi thout status migrainosus, not intractable 07/28/2018 Immunizations Immunization Administration Dates Next Due Influenza, Unspecified 01/05/2015 Family History Medical History Relation Name Comments Heart disease Mother Liver cancer Mother Relation Name Status Comments Father Alive Mother Social History Tobacco Use Types Packs/Day Years Used Date Smoking Tobacco: Never Smokeless Tobacco: Never Tobacco Cessation:Counseling Given: Yes Alcohol Use Standard Drinks/Week Comments Not Currently 0 (1 standard drink = 0.6 oz pur e alcohol) PHQ-2 Answer Date Recorded Total Score 4 08/24/2018 Childcare Answer Date Recorded Childcare Unknown 09/16/2018 Employment Answer Date Recorded Employment Unknown 09/16/2018 Purpose - Life Answer Date Recorded Purpose and direction in life Unknown Comments Unknown Sex and Gender Information Value Date Recorded Sex Assigned at Not on file Legal Sex Female 11:55 AM EDT Gender Identity Not on file Sexual Orientation Not on file Last Filed Vital Signs Vital Sign Reading Time Taken Comments Blood Pressure 118/86 08/24/2018 8:36 AM EDT Pulse 82 08/24/2018 8:36 AM EDT Temperature 37 C (98.6 F) 08/24/2018 8:36 AM EDT Respiratory Rate 20 08/24/2018 8:36 AM EDT Oxygen Saturation 98% 07/28/2018 2:35 PM EDT Inhaled Oxygen Concentration - - Weight 82.7 kg (182 lb 6.4 oz) 08/24/2018 8:36 A M EDT Height 160 cm (5' 3 ) 08/24/2018 8:36 AM EDT Body Mass Index 32.31 08/24/2018 8:36 AM EDT Plan of Treatment Health Maintenance Due Date Last Done Comments Depression Screening 2003 Tobacco Screening 2003 Adult BMI Screening 12/20/2009 DTaP,Tdap and Td Vaccines (1 - Tdap) 12/20/2010 Pap Smear 12/20/2012 Influenza Vaccine 12/06/2024 01/05/2015 Medical Devices Not on file Insurance [employer] Care Teams Aemt Relationship Specialty Start Date End Date Monie Ta, QI SPECIALIST-COMPTOMETER OPERATOR [address], [place] [address] PCP - General Family Medicine 07/28/18
--- OUTSIDE RECORDS SUMMARY | 2024-10-06 19:35 | XMS_ITS | Encounter Summary ---
Author Organization [facility] Address [address] [place] [address] Care Team Providers Care Paper Rewinder Operator Name Role Phone Alek Denis MD Unavailable Alek Denis MD Primary Care Provider [phone] Encounter Details Date Type Department Care Team (Late st Contact Info) Description 08/23/2024 Orders Only [facility] [address] [place] [address] Alek Denis MD [address] [place] [address] Social History Tobacco Use Types Packs/Day Years [...] EDT Ancillary Procedure [facility] [address] [place] [address] 11/02/2024 11:20 AM EDT Office Visit [facility] [address] [place] [address] Jan Killian DO [address] [place] [address] 11/19/2024 9:45 AM EDT Office Visit [facility] [address] [place] [address] Alek Denis MD [address] [place] [address] 10/11/2025 2:00 PM EDT Office Visit [facility] [address] [facility] [place] [address] Jan Killian, DO [address] [facility] [address] [place], [place] [phone] documented as of this encounter Procedures Procedure Name Priority Date/Time Associated Diagnosis Comments SCANNED LABS Routine 08/23/2024 10:42 AM EDT documented in this encounter Results * SCANNED LABS (08/23/2024 10:42 AM EDT) Alek Denis MD LAB CHG PERFORMABLES Final Resul t documented in this encounter Visit Diagnoses Not on filedocumented in this encounter Care Teams Paper Rewinder Operator Relationship Specialty Start Date End Date Alek Denis MD [address] [place] [address] PCP - [place] [employer] 07/07/23 Alek Denis MD [address] [place] [address] PCP - General Family Medicine 08/25/23 documented as of this encounter
--- OUTSIDE RECORDS SUMMARY | 2024-10-06 19:35 | XMS_ITS | Encounter Summary ---
Author Organization [facility] Address [address] [place] [address] Care Team Providers Care Dredge Pumper Name Role Phone Alek Denis MD Unavailable Alek Denis MD Primary Care Provider [phone] Encounter Details Date Type Department Care Team (Latest Contact Info) Description 10/06/2024 Travel Social History Tobacco Use Types Packs/Day Years [...] 10/19/2024 9:00 AM EDT Ancillary Procedure [facility] [address] [facility] [place] [address] 11/02/2024 11:20 AM EDT Office Visit [facility] [address] [place] [address] Jan Killian DO [address] [place], [place] [id number] 11/19/2024 9:45 AM EDT Office Visit [facility] [address] [place] [address] Alek Denis MD [address] [place] [address] 10/11/2025 2:00 PM EDT Office Visit [facility] [address] [facility] [place] [address] Jan Killian, DO [address] [facility] [address] [place], [place] [phone] documented as of this encounter Visit Diagnoses Not on filedocumented in this encounter Care Teams Dredge Pumper Relationship Specialty Start Date End Date Alek Denis MD [address] [place] [address] PCP - [place] [employer] 07/07/23 Alek Denis MD [address] [place] [address] PCP - General Family Medicine 08/25/23 documented as of this encounter
--- OUTSIDE RECORDS SUMMARY | 2024-10-06 19:35 | XMS_ITS | Encounter Summary ---
Author Organization [facility] Address [address] [place] [address] Care Team Providers Care Brush Fabrication Supervisor Name Role Phone Alek Denis MD Unavailable Alek Denis MD Primary Care Provider [phone] Encounter Details Date Type Department Care Team (Late st Contact Info) Description 09/26/2023 Clinisync Result Encounter [facility] External Department Unsolicited Provider, Generic External Data Social History Tobacco Use Types Packs/Day Years [...] 10/19/2024 9:00 AM EDT Ancillary Procedure [facility] [address] [place] [place] [address] 11/02/2024 11:20 AM EDT Office Visit [facility] OB [address] [facility] [place] [phone] Trevor Killian DO [address] [facility] [place] [address] 11/19/2024 9:45 AM EDT Office Visit [facility] [address] [place] [address] Alek Denis MD [address] [place] [address] 10/11/2025 2:00 PM EDT Office Visit [facility] OB [address] [facility] [place] [phone] Trevor Killian DO [address] [facility] [place] [address] documented as of this encounter Procedures Procedure Name Priority Date/Time Associated Diagnosis Comments US PELVIS W/ TRANSVAGINAL 09/26/2023 4:59 AM EDT documented in this encounter Results * US PELVIS W/ TRANSVAGINAL (09/26/2023 4:59 AM EDT) Anatomical Region Laterality Modality Other 09/26/2023 4:59 AM EDT Narrative 09/26/2023 5:01 AM EDT The [address] [address] Ultrasound Report Signed Patient: PAULA GAONA MR#: [id number] : 1990 Acct:[id number] Age/Sex: 32 / F ADM Date: 09/24/23 Loc: [facility] Attending Dr: Trevor Killian D.O. Ordering Physician: Trevor Killian D.O. Date of Service: 09/24/23 Procedure(s): US pelvis w/ transvaginal Accession Number(s): [id number] cc: Trevor Killian D.O.; Alek Denis M.D. The [address] [address] Patient Name: PAULA GAONA MRN: [id number] date: 1990 Sex: F Assigned Patient Location: [facility] Current Patient Location: Accession/Order Number: [id number] Exam Date: 09/24/2023 08:52 Report Date: 09/26/2023 04:59 At the request of: TREVOR KILLIAN Procedure: US pelvis w/ transvaginal EXAMINATION: US pelvis w/ transvaginal HISTORY: PELVIC PAIN , intermittent COMPARISON: Ultrasound pelvis 07/09/2022 TECHNIQUE: Transabdominal and/or transvaginal sonographic examination was performed as indicated by examination type. FINDINGS: UTERUS: Normal size and appearance. Uterus size: 8.1 x 4.1 x 4.4 cm ENDOMETRIUM: No definite IUD seen within the endometrial cavity, however, there is posterior shadowing suggestive of an IUD. Endometrium is normal thickness, 8 mm. Endometrial thickness: 8 mm RIGHT OVARY: Normal size and appearance. Blood flow present within ovary on color Doppler. Ovary size: 2.8 x 1.1 x 2.7 cm LEFT OVARY: Normal size and appearance. Blood flow present within ovary on color Doppler. Ovary size: 2.4 x 2.5 x 2.8 cm CUL-DE-SAC: Unremarkable. No significant free fluid. BLADDER: Unremarkable. OTHER: None. US/US pelvis w/ transvaginal IMPRESSION: 1. An IUD is not clearly identified within the uterus, however, there is posterior shadowing from the uterus which is new compared prior study and is most suggestive of an IUD within the endometrial cavity. Consider follow-up ultrasound in 2-[address] imaging of the pelvis if indicated. 2. Unremarkable ovaries. Electronically authenticated by: NETO ESCALANTE Date: 09/26/2023 04:59 Dictated By: Neto Escalante M.D. Signed By: 09/26/23 0501 DD/ 0459 TD/TT: Fireproof Door Maker: Procedure Note Radiology, Radiologist, MD - 09/26/2023 [place] [address] Ultrasound Report Signed Patient: PAULA GAONA LMR#: [id number] : 1990Acct:[id number] Age/Sex: 32 / FADM Date: 09/24/23 Loc: [facility] Attending Dr: Trevor Maria D D.O. Ordering Physician: Trevor Killian D.O. Date of Service: 09/24/23 Procedure(s): US pelvis w/ transvaginal Accession Number(s): [id number] cc: Trevor Killian D.O.; Alek Denis M.D. [address] [address] Patient Name: PAULA GAONA MRN: [id number] date: 1990 Sex: F Assigned Patient Location: [facility] Current Patient Location: Accession/Order Number: [id number] Exam Date: 09/24/2023 08:52 Report Date: 09/26/2023 04:59 At the request of: TREVOR KILLIAN Procedure: US pelvis w/ transvaginal EXAMINATION: US pelvis w/ transvaginal HISTORY: PELVIC PAIN , intermittent COMPARISON: Ultrasound pelvis 07/09/2022 TECHNIQUE: Transabdominal and/or transvaginal sonographic examination was performed as indicated by examination type. FINDINGS: UTERUS: Normal size and appearance. Uterus size: 8.1 x 4.1 x 4.4 cm ENDOMETRIUM: No definite IUD seen within the endometrial cavity, however, there is posterior shadowing suggestive of an IUD. Endometrium is normalthickness, 8 mm. Endometrial thickness: 8 mm RIGHT OVARY: Normal size and appearance. Blood flow present within ovaryon color Doppler. Ovary size: 2.8 x 1.1 x 2.7 cm LEFT OVARY: Normal size and appearance. Blood flow present within ovary on color Doppler. Ovary size: 2.4 x 2.5 x 2.8 cm CUL-DE-SAC: Unremarkable. No significant free fluid. BLADDER: Unremarkable. OTHER: None. US/US pelvis w/ transvaginal IMPRESSION: 1. An IUD is not clearly identified within the uterus, however, there is posterior shadowing from the uterus which is new compared prior study andis most suggestive of an IUD within the endometrial cavity. Considerfollow-up ultrasound in 2-[address] imaging of the pelvis if indicated. 2. Unremarkable ovaries. Electronically authenticated by: NETO ESCALANTE Date: 09/26/2023 04:59 Dictated By: Neto Escalante M.D. Signed By:09/26/23 0501 DD/ 0459 TD/TT: Fireproof Door Maker: us Generic External Data Provider [facility] Final Result documented in this encounter Visit Diagnoses Not on filedocumented in this encounter Care Teams Brush Fabrication Supervisor Relationship Specialty Start Date End Date Alek Denis MD [address] [place] [address] PCP - [facility] 07/07/23 Alek Denis MD [address] [place] [address] PCP - General Family Medicine 08/25/23 documented as of this encounter
--- OUTSIDE RECORDS SUMMARY | 2024-10-06 19:35 | XMS_ITS | Encounter Summary ---
Author Organization [facility] Address [address] [place] [address] Care Team Providers Care Alteration Hand Name Role Phone Alek Denis MD Unavailable Alek Denis MD Primary Care Provider [phone] Encounter Details Date Type Department Care Team (Late st Contact Info) Description 08/24/2024 Results Follow-Up [facility] [address] [place] [address] Alek Denis MD [address] [place] [address] Social History Tobacco Use Types Packs/Day Years [...] EDT Ancillary Procedure [facility] OB [address] [place] [address] 11/02/2024 11:20 AM EDT Office Visit [facility] OB [address] [place] [address] Jan Killian DO [address] [facility] [place] [address] 11/19/2024 9:45 AM EDT Office Visit [facility] [address] [place] [address] Aelk Denis MD [address] [place] [address] 10/11/2025 2:00 PM EDT Office Visit [facility] OB [address] [facility] [address] Jan Killian, [address] [facility] [place] [address] documented as of this encounter Visit Diagnoses Not on filedocumented in this encounter Care Teams Alteration Hand Relationship Specialty Start Date End Date Alek Denis MD [address] [place] [address] PCP - [place] [employer] 07/07/23 Alek Denis MD [address] [place] [address] PCP - General Family Medicine 08/25/23 documented as of this encounter
--- OUTSIDE RECORDS SUMMARY | 2024-10-06 19:35 | XMS_ITS | Encounter Summary ---
Author Organization [facility] Address [address] [place] [address] Care Team Providers Care Honing Machine Operator Production Name Role Phone Alek Denis MD Unavailable Alek Denis MD Primary Care Provider [phone] Encounter Details Date Type Department Care Team (Late st Contact Info) Description 09/24/2023 External Result Encounter [facility] External Department Unsolicited Alek Denis MD [address] [place] [address] Social History Tobacco Use Types Packs/Day Years [...] Procedure [facility] OB [address] [place] [address] 11/02/2024 11:20 AM EDT Office Visit [facility] OB [address] [place] [address] Jan Killian, DO [address] [place] [address] 11/19/2024 9:45 AM EDT Office Visit [facility] [address] [place] [address] Alek Denis MD [address] [place] [address] 10/11/2025 2:00 PM EDT Office Visit [facility] OB [address] [facility] [place] [address] Jan Killain, DO [address] [facility] [address] [place], [place] [address] documented as of this encounter Procedures Procedure Name Priority Date/Time Associated Diagnosis Comments XR CERVICAL SPINE 2-3 VIEWS 09/24/2023 1:53 PM EDT documented in this encounter Results * XR cervical spine 2 or 3 views (09/24/2023 1:53 PM EDT) Anatomical Region Laterality Modality Spine, C-spine Radiographic Stephanie ging 09/24/2023 1:53 PM EDT Impressions 09/24/2023 1:56 PM EDT STRAIGHTENING OF THE NORMAL CERVICAL LORDOSIS WHICH MAY RELATE TO MUSCLE SPASM. NO ACUTE BONY PROCESS OR SIGNIFICANT DEGENERATIVE CHANGE IS SEEN. Impression dictated by: Sergio Pizarro Jr., D.O.09/24/2023 1:54 PM Dictation Location: [place] [address] Transcribed By: PWS 09/24/23 1354 Dictated By: Sergio Pizarro Jr, DO 09/24/23 1353 Signed By: <Electronically signed by Sergio Pizarro Jr, DO in OV> 09/24/23 1354 Narrative 09/24/2023 1:56 PM EDT [facility] Main [place] [address] [place] [address] XRay Report Signed Patient: Paula Gaona MR#: [id number] : 1990 Acct:[id number] Age/Sex: 32 / F ADM Date: 09/24/23 Loc: [facility] Room: Type: [facility] CLI Attending Dr: Alek Denis MD Copies to: Alek Denis MD Ordering Provider: Alek Denis MD Date of Service: 09/24/23 XR/XR cervical spine 2V: NECK PAIN CERVICAL SPINE 4 views: CLINICAL HISTORY: Posterior neck pain and migraines. COMPARISON: None FINDINGS: Straightening of the normal cervical lordosis which may relate to muscle spasm. Vertebral body and disc space heights appear maintained. Facet joints appear unremarkable. No prevertebral soft tissue swelling. XR/XR cervical spine 2V Procedure Note Radiology, Radiologist, MD - 09/24/2023 [facility] Main [place] [address] [place] [address] XRay Report Signed Patient: Paula Gaona LMR#: [id number] : 1990Acct:[id number] Age/Sex: 32 / FADM Date: 09/24/23 Loc: [facility] Room:Type: [facility] CLI Attending Dr: Alek Denis MD Copies to: Alek Denis MD Ordering Provider: Alek Denis MD Date of Service: 09/24/23 XR/XR cervical spine 2V: NECK PAIN CERVICAL SPINE 4 views: CLINICAL HISTORY: Posterior neck pain and migraines. COMPARISON: None FINDINGS: Straightening of the normal cervical lordosis which may relate to musclespasm. Vertebral body and disc space heights appear maintained. Facet joints appear unremarkable.No prevertebral soft tissue swelling. XR/XR cervical spine 2V IMPRESSION: STRAIGHTENING OF THE NORMAL CERVICAL LORDOSIS WHICH MAY RELATE TO MUSCLESPASM. NO ACUTE BONY PROCESS OR SIGNIFICANT DEGENERATIVE CHANGE IS SEEN. Impression dictated by: Sergio Pizarro Jr., D.O.09/24/2023 1:54 PM Dictation Location: [place] [address] Transcribed By: [facility] 09/24/23 1354 Dictated By: Sergio Pizarro Jr, DO 09/24/23 1353 Signed By: <Electronically signed by Sergio Pizarro Jr, DO inOV> 09/24/23 1354 Alek Denis MD IMG XR PROCEDURES Final Result documented in this encounter Visit Diagnoses Not on filedocumented in this encounter Care Teams Honing Machine Operator Production Relationship Specialty Start Date End Date Alek Denis MD [address] [place] [address] PCP - [place] [employer] 07/07/23 Alek Denis MD [address] [place] [address] PCP - General Family Medicine 08/25/23 documented as of this encounter
--- OUTSIDE RECORDS SUMMARY | 2024-10-06 19:35 | XMS_ITS | Encounter Summary ---
Author Organization [facility] Address [address] [place] [address] Care Team Providers Care Mule Spinner Name Role Phone Alek Denis MD Unavailable Alek Denis MD Primary Care Provider [phone] Encounter Details Date Type Department Care Team (Late st Contact Info) Description 10/13/2023 Clinisync Result Encounter [facility] External Department Unsolicited [...] 10/19/2024 9:00 AM EDT Ancillary Procedure [facility] [address] [facility] [place] [address] 11/02/2024 11:20 AM EDT Office Visit [facility] OB [address] [facility] [place] [phone] Trevor Killian DO [address] [facility] [place] [address] 11/19/2024 9:45 AM EDT Office Visit [facility] [address] [place] [address] Alek Denis MD [address] [place] [address] 10/11/2025 2:00 PM EDT Office Visit [facility] OB [address] [facility] [place] [address] Trevor Killian DO [address] [facility] [place] [address] documented as of this encounter Procedures Procedure Name Priority Date/Time Associated Diagnosis Comments US PELVIS TRANSVAGINAL 10/13/2023 10:34 AM EDT documented in this encounter Results * US PELVIS TRANSVAGINAL (10/13/2023 10:34 AM EDT) Anatomical Region Laterality Modality Other 10/13/2023 10:3 4 AM EDT Narrative 10/13/2023 10:37 AM EDT The [address] [address] Ultrasound Report Signed Patient: PAULA GAONA MR#: [id number] : 1990 Acct:[id number] Age/Sex: 32 / F ADM Date: 10/13/23 Loc: [facility] Attending Dr: Trevor Killian D.O. Ordering Physician: Trevor Killian D.O. Date of Service: 10/13/23 Procedure(s): US pelvis transvaginal Accession Number(s): [id number] cc: Trevor Killian D.O.; Alek Denis M.D. The [address] [address] Patient Name: PAULA GAONA MRN: [id number] date: 1990 Sex: F Assigned Patient Location: [facility] Current Patient Location: [facility] Accession/Order Number: [id number] Exam Date: 10/13/2023 09:51 Report Date: 10/13/2023 10:34 At the request of: TREVOR KILLIAN Procedure: US pelvis transvaginal EXAMINATION: US pelvis transvaginal HISTORY: PELVIC PAIN, IUD PLACEMENT COMPARISON: No relevant comparison available. FINDINGS: The uterus is anteverted, anteflexed. The uterus measures 8.6 x 4.4 x 5.0 cm. No focal myometrial mass The endometrium measures 10 mm, normal. Linear hyperechogenicity within the endometrial cavity with acoustic shadowing, normally positioned IUD The right ovary is normal measuring 2.4 x 1.6 x 1.2 cm. Normal color Doppler flow. The left ovary measures 2.0 x 2.3 x 2.2 cm. Normal color Doppler flow. US/US pelvis transvaginal IMPRESSION: Normal position of the IUD Electronically authenticated by: KAYLA SHER Date: 10/13/2023 10:34 Dictated By: Kayla Sher M.D. Signed By: 10/13/23 1037 DD/ 1034 TD/TT: National Van Owner Operator: Procedure Note Radiology, Radiologist, MD - 10/13/2023 [place] [address] Ultrasound Report Signed Patient: PAULA GAONA LMR#: [id number] : 1990Acct:[id number] Age/Sex: 32 / FADM Date: 10/13/23 Loc: [facility] Attending Dr: Trevor Killian D.O. Ordering Physician: Trevor Killian D.O. Date of Service: 10/13/23 Procedure(s): US pelvis transvaginal Accession Number(s): [id number] cc: Trevor Killian D.O.; Alek Denis M.D. The [address] [address] Patient Name: PAULA GAONA MRN: [id number] date: 1990 Sex: F Assigned Patient Location: [facility] Current Patient Location: [facility] Accession/Order Number: [id number] Exam Date: 10/13/2023 09:51 Report Date: 10/13/2023 10:34 At the request of: TREVOR KILLIAN Procedure: US pelvis transvaginal EXAMINATION: US pelvis transvaginal HISTORY: PELVIC PAIN, IUD PLACEMENT COMPARISON: No relevant comparison available. FINDINGS: The uterus is anteverted, anteflexed. The uterus measures 8.6 x 4.4 x 5.0cm. No focal myometrial mass The endometrium measures 10 mm, normal. Linear hyperechogenicity withinthe endometrial cavity with acoustic shadowing, normally positioned IUD The right ovary is normal measuring 2.4 x 1.6 x 1.2 cm. Normal colorDoppler flow. The left ovary measures 2.0 x 2.3 x 2.2 cm. Normal color Doppler flow. US/US pelvis transvaginal IMPRESSION: Normal position of the IUD Electronically authenticated by: KAYLA SHER Date: 10/13/2023 10:34 Dictated By: Kayla Sher M.D. Signed By:10/13/23 1037 DD/ 1034 TD/TT: National Van Owner Operator: us Generic External Data Provider [facility] Final Result documented in this encounter Visit Diagnoses Not on filedocumented in this encounter Care Teams Mule Spinner Relationship Specialty Start Date End Date Alek Denis MD [address] [place] [address] PCP - [facility] 07/07/23 Alek Denis MD [address] [place] [address] PCP - General Family Medicine 08/25/23 documented as of this encounter
--- OUTSIDE RECORDS SUMMARY | 2024-10-06 19:35 | XMS_ITS | Clinical Summary ---
Author Organization [facility] Healthcare Address [address] [facility] [place]án [place] [address] Care Team Providers Care Metal Coater Name Role Phone Alek Denis MD Unavailable Alek Denis MD Primary Care Provider [phone] Allergies Active Allergy Reactions Criticality Noted Date Comments Fremanezumab-Vfrm Hives Low 09/02/2024 Medications SUMAtriptan (Imitrex) 100 MG tabletIndications: Chronic migraine without aura without status migrainosus, not intractable Take 1 tablet (100 mg) by mouth 1 (one) time if needed for migraine (may repeat x1) 9 tablet 07/30/19 25 Active Atogepant (Qulipta) 60 MG tabletIndications: Chronic migraine without aura without status migrainosus, not intractable Take one tab daily for migraine prevention 30 tablet 2 09/03/19 25 Active phentermine (Adipex-P) 37.5 MG tabletIndications: Obesity (BMI 30-39.9) Take 1 tablet (37.5 mg) by mouth in the morning. Take before meals. 30 tablet 09/03/19 25 Active Levonorgestrel (Mirena, 52 MG,) 20 MCG/DAY intrauterine device by Intrauterine route Active doxycycline (Vibramycin) 100 MG capsuleIndications :PCOS (polycystic ovarian syndrome),Dyspareu alina, female,Cervicitis and endocervicitis Take 1 capsule (100 mg) by mouth in the morning and 1 capsule (100 mg) before bedtime. Take with at least 8 ounces (large glass) of water, do not lie down for 30 minutes after. 60 capsule 10/07/19 25 025 Active Active Problems Problem Noted Date Diagnosed Date Annual physical exam 08/20/2024 Assessment & Plan (08/20/2024 10:10 AM EDT): Due for labs. Discussed proper diet and regular aerobic exercise. Need aerobic exercise 5-6 days a week for 30 minutes at a time. Smaller portions and limit total calories. Colonoscopy after age 45. Tetanus every 10 years. Advised not to smoke. Discussed daily Aspirin therapy. Elevated blood pressure read ing in office without diagnosis of hypertension 11/05/2023 Assessment & Plan (11/05/2023 11:15 AM EDT): BP elevated over past few visit and need to monitor PRN. If 140/90 or higher regularly will need to treat for HTN. Eustachian tube dysfunction, bilateral Assessment & Plan (11/05/2023 11:15 AM EDT): Fluid behind TM and add flonase. Chronic migraine without aur a without status migrainosus, not intractable 10/15/2023 Assessment & Plan (11/05/2023 11:14 AM EDT): WOODARD unchanged and follow with neurology. MDD (major depressive disord er), recurrent episode, moderate 09/24/2023 Assessment & Plan (11/05/2023 11:16 AM EDT): Symptoms slightly better but still present and increase celexa. Assessment & Plan (09/24/2023 11:40 AM EDT): Severe symptoms and not functioning well. Start celexa and warned will take 2-3 weeks to notice improvement in mood. MARY ANN (generalized anxiety disorder) 09/24/2023 Assessment & Plan (11/05/2023 11:16 AM EDT): Symptoms slightly better but still present and increase celexa. Assessment & Plan (09/24/2023 11:40 AM EDT): Severe symptoms and not functioning well. Start celexa and warned will take 2-3 weeks to notice improvement in mood. Chronic neck pain 08/25/2023 Assessment & Plan (11/05/2023 11:14 AM EDT): Pain unchanged and possibly adding to WOODARD. Stop robaxin and start baclofen. Assessment & Plan (09/24/2023 11:39 AM EDT): Pain unchanged and possibly related to stress. Check x-ray. Try robaxin for spasms. Assessment & Plan (08/25/2023 10:38 AM EDT): Pain stable and use flexeril PRN. Chronic right-sided low back pain with right-quincy ed sciatica 08/25/2023 Assessment & Plan (08/25/2023 10:38 AM EDT): Pain stable and use flexeril PRN. Anemia 09/13/2022 Menorrhagia 09/13/2022 Class 1 obesity due to exces s calories without serious comorbidity with body mass index (BMI) of 32.0 to 32.9 in adult 09/13/2022 Assessment & Plan (09/24/2023 11:40 AM EDT): Patient overweight and difficult time losing weight. Discussed proper diet and regular aerobic exercise. Recommend Weight Watchers and need to limit calories and smaller portions. Need to increase activity and regular aerobic exercise several days a week for 30 minutes at a time. Interested in adipex and warned of potential cardiac side effects. Script written for first month and will need to recheck weight in 1 month. OARRS reviewed. Continue medications as prescribed. Resolved Problems Problem Noted Date Diagnosed Date Resolved Date Bacterial pneumonia 03/09/2024 08/21/19 25 Assessment & Plan (03/09/2024 1:38 PM EST): Recent pneumonia but improved with treatment. Warned cough may last another 4-6 weeks. Use OTC PRN. Will complete short-term disability paperwork for 02/17- 02/22 and returned 02/23. Chronic tension-type headach e, not intractable 08/25/2023 11/05/2023 Assessment & Plan (09/24/2023 11:39 AM EDT): WOODARD unchanged and possibly related to stress. Increase zonegran. Refer to neurology for evaluation. Assessment & Plan (08/25/2023 10:38 AM EDT): WOODARD more often and more intense. Stop elavil and try zonegran. Use fioricet or maxalt PRN. Use flexeril PRN. If no improvement may need to see neurology. Atypical squamous cells of u ndetermined significance (ASCUS) on Papanicolaou smear of cervix 09/13/2022 08/25/2023 Candidiasis 09/13/2022 08/25/2023 Cervical high risk HPV (pauline n papillomavirus) test positive 09/13/2022 08/25/2023 Dysplasia of cervix 09/13/2022 08/25/19 24 Lack or loss of sexual desire 09/13/2022 08/25/2023 Migraine 09/13/2022 08/25/2023 Pain in female genitalia on intercourse 09/13/2022 08/25/2023 Encounters Date Type Department Care Team Description 10/06/2024 3:00 PM EDT Office Visit [facility] [address] [place] [address] Jan Killian DO Well woman exam with routine gynecological exam; PCOS (polycystic ovarian syndrome); Dyspareunia, female; Cervicitis and endocervicitis; IUD check up 10/06/2024 Barryboo flowsheet [facility] [address] [place] [address] Jan Killian DO 10/06/2024 Travel 09/02/2024 1:20 PM EDT Office Visit [facility] [address] [place] [phone] Rosario Irwin NP ROMANA (obstructive sleep apnea) (Primary Dx); Chronic migraine without aura without status migrainosus, not intractable ; Hypersomnolence 09/02/2024 Telephone [facility] [address] [place] [phone] Alek Denis MD 09/02/2024 Bamboo flowsheet [facility] [address] [place] [phone] Rosario Irwin NP 08/24/2024 Results Follow-Up [facility] [address] [place] [phone] Alek Denis MD 08/23/2024 Orders Only [facility] [address] [place] [address] Alek Denis MD 08/20/2024 9:15 AM EDT Office Visit [facility] [address] [place] [address] Alek Denis MD Annual physical exam (Primary Dx); Class 1 obesity due to excess calories without serious comorbidity with body mass index (BMI) of 32.0 to 32.9 in adult 08/20/2024 Bamboo flowsheet [facility] [address] [place] [phone] Alek Denis MD 07/29/2024 Telephone [facility] [address] [place] [phone] Janna Blake MA refill req from Last 3 Months Family History Medical History Relation Name Comments Diabetes Father Rashaad Hypertension Father Rashaad Diabetes Maternal Grandmother [place] Cancer Mother Gita Heart disease Mother Gita Heart failure Mother Gita Cancer Paternal Grandmother Melania Hypertension Paternal Grandmother Melania Relation Name Status Comments Father Rashaad Maternal Grandmother [place] Mother Gita Paternal Grandmother Melania Social History Tobacco Use Types Packs/Day Years Used Date Smoking Tobacco: Never Smokeless Tobacco: Never Tobacco Cessation:Counseling Given: Not Answered Alcohol Use Standard Drinks/Week Comments Never 0 (1 standard drink = 0.6 oz pur e alcohol) Comments No Sex and Gender Information Value Date Recorded Sex Assigned at Not on file Legal Sex Female 6:44 PM EDT Gender Identity Not on file Sexual Orientation Not on file Last Filed Vital Signs Vital Sign Reading Time Taken Comments Blood Pressure 153/103 09/02/2024 1:32 PM EDT Pulse 89 08/20/2024 9:20 AM EDT Temperature 36.4 C (97.5 F) 08/20/2024 9:20 AM EDT Respiratory Rate 22 08/20/2024 9:20 AM EDT Oxygen Saturation 98% 08/20/2024 9:20 AM EDT Inhaled Oxygen Concentration - - Weight 86.6 kg (191 lb) 08/20/2024 9:20 AM EDT Height 162.6 cm (5' 4 ) 08/20/2024 9:20 AM EDT Body Mass Index 32.79 08/20/2024 9:20 AM EDT Plan of Treatment Upcoming Encounters Date Type Department Care Team (Late st Contact Info) Description 10/19/2024 9:00 AM EDT Ancillary Procedure [facility] [address] [place] [address] 11/02/2024 11:20 AM EDT Office Visit [facility] [address] [facility] [place] [address] Jan Killian, [address] [place] [address] 11/19/2024 9:45 AM EDT Office Visit [facility] [address] [place] [phone] Alek Denis MD [address] [place] [phone] 10/11/2025 2:00 PM EDT Office Visit [facility] [address] [facility] [place] [address] Jan Killian, [address] [place] [address] Health Maintenance Due Date Last Done Comments Influenza Vaccine (#1) 2024 01/05/2015 Cervical Cancer Screening 09/16/2028 HPV/Cotest 09/16/2028 Pap Smear 09/16/2028 09/17/2023, 06/06, 07/02/2022, Additional history exists Procedures Procedure Name Priority Date/Time Associated Diagnosis Comments SCANNED LABS Routine 08/23/2024 10:42 AM EDT PAP SMEAR Routine 09/17/2023 12:00 AM EDT from Last 3 Months or Most Recently Relevant to Health Maintenance Results * SCANNED LABS (08/23/2024 10:42 AM EDT) us Alek Denis MD LAB CHG PERFORMABLES Final Resul t * Pap Smear (09/17/2023 12:00 AM EDT) Swab Cervical swab / Unknown us Jan Killian DO LAB CYTOLOGY ORDERABLES Final Re sult EXTERNAL LAB from Last 3 Months or Most Recently Relevant to Health Maintenance Insurance [facility] BS Care Teams Metal Coater Relationship Specialty Start Date End Date Alek Denis MD [address] [place] [phone] PCP - [facility] 07/07/23 Alek Denis MD [address] [place] [address] PCP - General Family Medicine 08/25/23
--- OUTSIDE RECORDS SUMMARY | 2024-10-06 19:35 | XMS_ITS | Encounter Summary ---
Author Organization [facility] Address [address] [facility] Adrián [place] [address] Care Team Providers Care Commodity Lead Name Role Phone Alek Denis MD Unavailable Alek Denis MD Primary Care Provider [phone] Encounter Details Date Type Department Care Team (Late Contact Info) Description 11/03/2023 Orders Only [facility] [address] [place] [address] Kenan Yates MD [address] [place] [phone] (Work) Social History Tobacco Use Types Packs/Day Years [...] Procedure [facility] [address] [place] [address] 11/02/2024 11:20 AM EDT Office Visit [facility] [address] [place] [address] Jan Killian DO [address] [place] [address] 11/19/2024 9:45 AM EDT Office Visit [facility] [address] [place] [address] Alek Denis MD [address] [place] [phone] 10/11/2025 2:00 PM EDT Office Visit [facility] [address] [facility] [place] [phone] Jan Killian, DO [address] [facility] [address] [place], [place] [phone] documented as of this encounter Procedures Procedure Name Priority Date/Time Associated Diagnosis Comments XR CHEST 1 VIEW Routine 11/03/2023 7:29 AM EDT documented in this encounter Results * XR chest 1 view (11/03/2023 7:29 AM EDT) Anatomical Region Laterality Modality Chest Radiographic Stephanie ging Kenan Yates MD IMG XR PROCEDURES Final Result documented in this encounter Visit Diagnoses Not on filedocumented in this encounter Care Teams Commodity Lead Relationship Specialty Start Date End Date Alek Denis MD [address] [place] [phone] PCP - [employer] 07/07/23 Alek Denis MD [address] [place] [phone] PCP - General Family Medicine 08/25/23 documented as of this encounter
--- OUTSIDE RECORDS SUMMARY | 2024-10-06 19:35 | XMS_ITS | Encounter Summary ---
Author Organization [facility] Address [address] [facility] [place]án [place] [address] Care Team Providers Care Crossbar Switch Adjuster Name Role Phone Alek Denis MD Unavailable Alek Denis MD Primary Care Provider [phone] Encounter Details Date Type Department Care Team (Late st Contact Info) Description 09/18/[address] [facility] [address] [place] [address] Jan Killian DO [facility] [address] [place], [facility] Social History Tobacco Use Types Packs/Day Years [...] 10/19/2024 9:00 AM EDT Ancillary Procedure [facility] [place] [address] 11/02/2024 11:20 AM EDT Office Visit [facility] [place] [address] Jan Killian DO [address] [place] [address] [place] [address] 11/19/2024 9:45 AM EDT Office Visit [facility] [address] [place] [address] Alek Denis MD [address] [place] [address] 10/11/2025 2:00 PM EDT Office Visit [facility] [address] [facility] [place] [phone] Jan Killian DO [address] [facility] [address] [place], [place] [phone] documented as of this encounter Visit Diagnoses Not on filedocumented in this encounter Care Teams Crossbar Switch Adjuster Relationship Specialty Start Date End Date Alek Denis MD [address] [place] [phone] PCP - [place] [employer] 07/07/23 Alek Denis MD [address] [place] [phone] PCP - General Family Medicine 08/25/23 documented as of this encounter
--- OUTSIDE RECORDS SUMMARY | 2024-10-06 19:35 | XMS_ITS | Encounter Summary ---
Author Organization [facility] Address [address] [facility] Adrián [place] [address] Care Team Providers Care Mc Kay Machine Operator Name Role Phone Alek Denis MD Unavailable Alek Denis MD Primary Care Provider [phone] Encounter Details Date Type Department Care Team (Late st Contact Info) Description 10/06/2024 Bamboo flowsheet [facility] [address] [place] [address] Jan Killian DO [address] [place], [place] [id number] Social History Tobacco Use Types Packs/Day Years [...] 10/19/2024 9:00 AM EDT Ancillary Procedure [facility] [place] [address] 11/02/2024 11:20 AM EDT Office Visit [facility] [place] [address] Jan Killian DO [address] [place] [address] [place] [address] 11/19/2024 9:45 AM EDT Office Visit [facility] [address] [place] [address] Alek Denis MD [address] [place] [phone] 10/11/2025 2:00 PM EDT Office Visit [facility] [address] [facility] [place] [phone] Jan Killian, DO [address] [facility] [address] [place] [place], [place] [phone] documented as of this encounter Visit Diagnoses Not on filedocumented in this encounter Care Teams Mc Kay Machine Operator Relationship Specialty Start Date End Date Alek Denis MD [address] [place] [phone] PCP - [employer] 07/07/23 Alek Denis MD [address] [place] [address] PCP - General Family Medicine 08/25/23 documented as of this encounter
--- OUTSIDE RECORDS SUMMARY | 2024-10-06 20:02 | XMS_ITS | CCD ---
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 Name Role Phone DR FORTINO HURTADO Consulting Unavailable FINCH ., DR OREN Nielsen Primary Care Unavailable HAY ., DR ANDRADE Admitting Unavailable HAY ., DR ANDRADE Attending Unavailable HAY ., DR ANDRADE Consulting Unavailable DORIAN SHARMA Consulting Unavailable MARIA D ., DR MURRAY Attending Unavailable MARIA D ., DR MURRAY Admitting Unavailable FINCH ., DR OREN Nielsen Primary Care Unavailable MARIA D ., DR MURRAY Attending Unavailable MARIA D ., DR MURRAY Admitting Unavailable MARIA D ., DR MURRAY Consulting Unavailable FINCH ., DR OREN Nielsen Primary Care Unavailable MARIA D ., DR MURRAY Attending Unavailable MARIA D ., DR MURRAY Admitting Unavailable MARIA D ., DR MURRAY Consulting Unavailable FINCH ., DR OREN Nielsen Primary Care Unavailable AGUBOSIM, KENNY Consulting Unavailable GERALDO, TOY Consulting Unavailable MARIA D ., DR MURRAY Attending Unavailable MARIA D ., DR MURRAY Admitting Unavailable MARIA D ., DR MURRAY Consulting Unavailable FINCH ., DR OREN Nielsen Primary Care Unavailable MARIA D ., DR MURRAY Attending Unavailable MARIA D ., DR MURRAY Admitting Unavailable MARIA D ., DR MURRAY Consulting Unavailable FINCH ., DR OREN Nielsen Primary Care Unavailable MARIA D ., DR MURRAY Attending Unavailable MARIA D ., DR MURRAY Admitting Unavailable FINCH ., DR OREN Nielsen Primary Care Unavailable MARIA D ., DR MURRAY Consulting Unavailable MARIA D ., DR MURRAY Attending Unavailable MARIA D ., DR MURRAY Admitting Unavailable FINCH ., DR OREN Nielsen Primary Care Unavailable MARIA D ., DR MURRAY Consulting Unavailable MARIA D ., DR MURRAY Attending Unavailable MARIA D ., DR MURRAY Admitting Unavailable MARIA D ., DR MURRAY Consulting Unavailable FINCH ., DR OREN Nielsen Primary Care Unavailable MARIA D ., DR MURRAY Attending Unavailable MARIA D ., DR MURRAY Admitting Unavailable FINCH ., DR OREN Nielsen Primary Care Unavailable MARIA D ., DR MURRAY Consulting Unavailable ZIEBER, DR TIAGO Amador Consulting Unavailable REQUEST, DR CLARISSA LISTED Consulting Unavailmohan HURTADO, DR FORTINO Amador Consulting Unavailable BRYANT, DR FORTINO Amador Attending Unavailable STEF ., DR OREN Nielsen Primary Care Unavailable BRYANT, DR FORTINO Amador Admitting Unavailable ADITYA HARPER Consulting Unavailable LEROY, ADITYA Attending Unavailable LEROY, ADITYA Admitting Unavailable FINCH ., DR OREN Nielsen Primary Care Unavailable Ludivina Mac Unavailable MD Alek Posey Primary Care Provider [phone] MD Alek Posey Attending Provider MILADIS KIRK Attending Unavailable ALEK POSEY Attending Unavailable ALEK POSEY Attending Unavailable JAN KILLIAN Attending Unavailable ALEK POSEY Attending Unavailable Alek Posey MD Primary Care Provider [phone] [place] CABLE INSTALLER REPAIRER HELPER-BC, Lanie E Emergency Provider Missy, Lanie E Attending Unavailable Lanie Louis Admitting Unavailable Alek Posey Primary Care Unavailable Alek Posey Admitting Unavailable Alek Posey Attending Unavailable Alek Posey Primary Care Unavailable Alek Posey MD Unavailable Alek Posey MD Primary Care Provider ALEK POSEY Attending Unavailable ROSARIO IRWIN Attending Unavailable ALEK POSEY Attending Unavailable Allergies Allergy Classification Reported Allergen(s) Allergy Type Date of Onset Reaction(s) Facility (3 sources) Fremanezumab-Vfr m Propensity to adverse reactions Hives [facility] Medications Current Medications Medication Drug Class(es) Dates Sig (Normalized) Sig (Original) Atogepant (Qulipta) 60 MG tablet (3 sources) Start: 09-02-2024 Atogepant (Qulipta) 60 MG tablet Indications: Chronic migraine without aura without status migrainosus, not intractable Take one tab daily for migraine prevention 30 tablet 2 09/02/2024 Active Start: 09-02-2024 Atogepant (Qul ipta) 60 MG tablet Indications: Chronic migraine without aura without status migrainosus, not intractable (CMS/HCC) Take one tab daily for migraine prevention 30 tablet 2 09/02/2024 Active baclofen 20 mg oral tablet (3 sources) gamma-Aminobutyric Acid-ergic Agonist Start: 11-05-2023 End: 03-09-2024 take 1 tablet by mouth three times daily as needed for muscle spasms baclofen (Lioresal) 20 MG tablet Indications: Chronic neck pain Take 1 tablet (20 mg) by mouth 3 (three) times a day as needed for muscle spasms 90 tablet 2 11/05/2023 03/09/2024 Discontinued Butalbital-Aceta minophen-Caff (3 sources) Start: 07-21-2023 Butalbital-Acetam inophen-Caff Active TAB PO July 21, 2023 12:00am citalopram 40 mg oral tablet (5 sources) Serotonin Reuptake Inhibitor Start: 11-05-2023 End: 03-09-2024 take 1 tablet by mouth once daily citalopram (CeleXA) 40 MG tablet Indications: MDD (major depressive disorder), recurrent episode, moderate (CMS/HCC) Take 1 tablet (40 mg) by mouth Daily 30 tablet 5 11/05/2023 03/09/2024 Discontinued Start: 09-24-2023 End: 11-05-2023 take 1 tablet by mouth once daily citalopram (CeleXA) 20 MG tablet Indications: MDD (major depressive disorder), recurrent episode, moderate (HCC) (CMS/HCC) Take 1 tablet (20 mg) by mouth Daily 30 tablet 5 09/24/2023 11/05/2023 Discontinued (Reorder) fluticasone propionate 0.05 mg/actuat metered dose nasal spray (10 sources) Corticosteroid Start: 07-16-2024 take 2 spray(s) nasal route once daily Fluticasone Propionate (Flonase Allergy Relief) 50 mcg/actuation spray,suspension Active 2 SPRAY INTRANASAL Daily July 16, 2024 12:00am administer 2 spray into each nostril Start: 11-05-2023 End: 09-02-2024 take 2 spray(s) nasal route once daily fluticasone (Flonase) 50 MCG/ACT nasal spray Indications: Eustachian tube dysfunction, bilateral Administer 2 sprays into each nostril Daily Shake gently. Before first use, prime pump. After use, clean tip and replace cap. 16 g 2 11/05/2023 09/02/2024 Discontinued (Therapy completed) methylPREDNISolone 4 mg oral tablet (6 sources) Corticosteroid Start: 07-16-2024 take 1 tablet by mouth once Methylprednisolone (Medrol (Nato)) 4 mg tablets,dose pack Active 0 PO per package directions July 16, 2024 12:00am PO PER PKG DIR for 6 days Start: 02-18-2024 End: 02-21-2024 take 1 tablet by mouth once Methylprednisolone (Medrol (Nato)) 4 mg tablets,dose pack Discontinued 0 PO per package directions February 18, 2024 1:00am February 21, 2024 2:11pm PO PER PKG DIR Start: 09-06-2022 methylPREDNISo lone 4 MG as directed Orally for daily dose take half with breakfast, half with dinner for 6 days Sep, Active phentermine hydrochloride 37.5 mg oral tablet (1 source) Sympathomimetic Amine Anorectic Start: 09-02-2024 take 1 tablet by mouth before mealtime phentermine (Adipex-P) 37.5 MG tablet Indications: Obesity (BMI 30-39.9) Take 1 tablet (37.5 mg) by mouth in the morning. Take before meals. 30 tablet 09/02/2024 Active Semaglutide-Weight Management (Wegovy) 0.25 MG/0.5ML solution auto-injector (5 sources) Start: 08-20-2024 Semaglutide-Weigh t Management (Wegovy) 0.25 MG/0.5ML solution auto-injector Indications: Class 1 obesity due to excess calories without serious comorbidity with body mass index (BMI) of 32.0 to 32.9 in adult Inject 0.25 mg under the skin 1 (one) time per week 2 mL 1 08/20/2024 Active SUMAtriptan 100 mg oral tablet (16 sources) Serotonin-1b and Serotonin-1d Receptor Agonist Start: 07-29-2024 End: 08-28-2024 take 1 tablet by mouth once SUMAtriptan (Imitrex) 100 MG tablet Indications: Chronic migraine without aura without status migrainosus, not intractable Take 1 tablet (100 mg) by mouth 1 (one) time if needed for migraine (august repeat x1) 9 tablet 07/29/2024 Active Start: 12-16-2023 Sumatriptan Bains ccinate Active MG PO December 16, 2023 12:00am Start: 10-15-2023 take 1 tablet by keisha once daily as needed for headache Sumatriptan Succinate 100 mg tablet Active 100 MG PO Daily as needed for migraine headache December 16, 2023 12:00am Completed/Discontinued Medications Medication Drug Class(es) Dates Sig (Normalized) Sig (Original) acetaminophen 325 mg / butalbital 50 mg / caffeine 40 mg oral tablet (2 sources) Barbiturate, Central Nervous System Stimulant, Methylxanthine Start: 04-13-2023 End: 11-05-2023 take 1 tablet by mouth four times daily as needed butalbital-acetami nophen-caffeine 50-325-40 MG tablet Indications: Chronic tension-type headache, not intractable TAKE 1 TABLET BY MOUTH FOUR TIMES DAILY NEEDED 30 tablet 1 04/13/2023 11/05/2023 Discontinued acetaminophen 325 mg / HYDROcodone bitartrate 5 mg oral tablet (1 source) Opioid Agonist take 1 tablet by mouth every four to six hours as needed HYDROcodone-Acetam inophen 5-325 MG TAKE 1 TABLET BY MOUTH EVERY 4-6 HOURS NEEDED Oral for 7 Days Not-Taking [id number] 200 actuat albuterol 0.09 mg/actuat metered dose inhaler (5 sources) beta2-Adrenergic Agonist Start: 02-18-2024 End: 07-16-2024 Albuterol Sulfate 90 mcg/actuation HFA aerosol inhaler Discontinued 2 INH INHALATION EVERY 4-6 HOURS as needed for shortness of breath or wheezing 8.5 14 February 21, 2024 3:56pm July 16, 2024 12:26pm amitriptyline hydrochloride 25 mg oral tablet (6 sources) Tricyclic Antidepressant Start: 07-21-2023 End: 02-21-2024 Amitriptyline 25 mg tablet Discontinued MG PO July 21, 2023 12:00am February 21, 2024 2:10pm Start: 07-21-2023 Amitriptyline Active MG PO July 21, 2023 12:00am amoxicillin 500 mg oral capsule (13 sources) Penicillin-class Antibacterial Start: 07-21-2023 End: 02-18-2024 take 1 capsule by mouth three times daily Amoxicillin 500 mg capsule Discontinued 500 MG PO Three times daily 21 7 July 21, 2023 12:00am February 18, 2024 10:57am Start: 06-28-2018 End: 07-08-2018 take 1 capsule by mouth three times daily Amoxicillin 500 mg capsule Discontinued 500 MG PO Three times daily 30 June 28, 2018 12:00am July 07, 2018 12:00am July 08, 2018 12:02am take 1 tablet by keisha th every eight hours Amoxicillin 500 MG TAKE 1 TABLET BY MOUTH EVERY 8 HOURS Oral for 10 Days Not-Taking azithromycin 250 mg oral tablet (2 sources) Macrolide Antimicrobial Start: 02-21-2024 End: 07-16-2024 take 2-5 tablets by mouth once daily Azithromycin 250 mg tablet Discontinued 0 PO .COMPLEX February 21, 2024 1:00am July 16, 2024 12:26pm take 500 mg today (day 1), then 250 mg for 4 days (days 2-5) brompheniramine maleate 0.4 mg/ml / dextromethorphan hydrobromide 2 mg/ml / pseudoephedrine hydrochloride 6 mg/ml oral solution (2 sources) alpha-Adrenergic Agonist, Uncompetitive Q-jlbtvw-U-aspartat e Receptor Antagonist, Sigma-1 Agonist Start: 02-21-2024 End: 07-16-2024 take 1 mL by mouth every four to six hours as needed Brompheniramine-P seudoeph-Dm (Bromfed Dm) 2-30-10 mg/5 mL syrup Discontinued 10 ML PO EVERY 4-6 HOURS as needed for cold symptoms February 21, 2024 1:00am July 16, 2024 12:26pm Butalbital-Acetaminoph en-Caff 50-325-40 mg tablet (3 sources) Start: 07-21-2023 End: 02-21-2024 Butalbital-Acetam inophen-Caff 50-325-40 mg tablet Discontinued TAB PO July 21, 2023 12:00am February 21, 2024 2:12pm Start: 07-21-2023 End: 02-21-2024 Ofoptvdklu-Vpeayoevldsvd-Gnm f 50-325-40 mg tablet Discontinued TAB PO July 20, 2023 11:00pm February 21, 2024 1:12pm Start: 07-21-2023 Butalbital-Alireza taminophen-Caff 50-325-40 mg tablet Active TAB PO July 20, 2023 11:00pm {21 (ethinyl estradiol 0.035 MG / norgestimate 0.25 MG Oral Tablet) / 7 (inert ingredients 1 MG Oral Tablet) } Pack [Mobile-Linyah 28 Day] (1 source) Progestin, Estrogen Mobile-Linyah 0.25-35 MG-MCG Oral for 28 Days Not-Taking fluconazole 150 mg oral tablet (9 sources) Azole Antifungal Start: 10-21-2023 End: 11-05-2023 fluconazole (Diflucan) 150 MG tablet Indications: Yeast infection TAKE 1 TABLET BY MOUTH for 1 dose 1 tablet 1 10/21/2023 11/05/2023 Discontinued Start: 07-12-2018 End: 07-21-2023 take 1 tablet by mouth once Fluconazole (Diflucan) 150 mg tablet Discontinued 150 MG PO Once 1 July 12, 2018 12:00am July 21, 2023 1:08pm as a single dose take 1 tablet by keisha th once, then take 1 tablet by mouth every week Fluconazole 200 MG TAKE 1 TABLET BY MOUTH as a one time dose may repeat in 1 (ONE) week Oral for 1 Days Not-Taking 1.5 ml fremanezumab-vfrm 150 mg/ml prefilled syringe (14 sources) Start: 02-18-2024 End: 07-16-2024 Fremanezumab-Vfrm (Ajovy Autoinjector) 225 mg/1.5 mL auto-injector Discontinued 225 MG SUBCUT .month February 18, 2024 1:00am July 16, 2024 12:26pm Start: 02-18-2024 Fremanezumab-V frm (Ajovy Autoinjector) 225 mg/1.5 mL auto-injector Active MG SUBCUT February 18, 2024 12:00am Start: 10-15-2023 End: 09-02-2024 fremanezumab (Ajovy) 225 MG/ 1.5ML auto-injector Indications: Chronic migraine without aura without status migrainosus, not intractable (CMS/HCC) Inject 1 pen (225 mg) under the skin every 30 (thirty) days 1 each 3 10/15/2023 09/02/2024 Discontinued (Side effects) hydrocortisone 10 mg/ml / neomycin 3.5 mg/ml / polymyxin b [id number] unt/ml otic suspension (6 sources) Aminoglycoside Antibacterial, Polymyxin-class Antibacterial, Corticosteroid Start: 07-21-2023 End: 02-18-2024 Nlebkwjh-Fkwcenadk-Gn 3.5-10,000-1 mg/mL-unit/mL-% drops,suspension Discontinued 3 DROPS OTIC Three times daily July 21, 2023 12:00am February 18, 2024 11:07am left ear ibuprofen 600 mg oral tablet (6 sources) Nonsteroidal Anti-inflammatory Drug Start: 06-28-2018 End: 07-12-2018 Ibuprofen 600 mg tablet Discontinued 600 MG PO every 6 to 8 hours as needed for pain June 28, 2018 12:00am July 12, 2018 1:04pm medroxyPROGESTERone acetate 10 mg oral tablet (1 source) Progestin medroxyPROGESTER one Acetate 10 MG Oral for 14 Days Not-Taking methocarbamol 750 mg oral tablet (2 sources) Muscle Relaxant Start: 09-24-2023 End: 11-05-2023 take 1 tablet by mouth four times daily as needed for muscle spasms methocarbamol (Robaxin) 750 MG tablet Indications: Chronic neck pain Take 1 tablet (750 mg) by mouth 4 (four) times a day as needed for muscle spasms 60 tablet 2 09/24/2023 11/05/2023 Discontinued nitrofurantoin, macrocrystals 100 mg oral capsule (6 sources) Nitrofuran Antibacterial Start: 07-12-2018 End: 07-21-2023 take 1 capsule by mouth twice daily at mealtime Nitrofurantoin Macrocrystal (Macrodantin) 100 mg capsule Discontinued 100 MG PO Twice daily July 12, 2018 12:00am July 21, 2023 1:08pm must administer with a meal/food phenazopyridine hydrochloride 200 mg oral tablet (6 sources) Start: 07-12-2018 End: 07-14-2018 take 1 tablet by mouth three times daily Phenazopyridine (Pyridium) 200 mg tablet Discontinued 200 MG PO Three times daily 6 2 July 12, 2018 12:00am July 13, 2018 12:00am July 14, 2018 12:02am predniSONE 50 mg oral tablet (2 sources) Start: 02-21-2024 End: 07-16-2024 take 1 tablet by mouth once daily Prednisone 50 mg tablet Discontinued 50 MG PO Daily 4 February 21, 2024 1:00am July 16, 2024 12:26pm Problems Active Problems Problem Classification Problem Date Documented Date Episodic/Chronic Acute bronchitis (5 sources) Viral bronchitis; Translations: [Acute bronchitis due to other specified organisms] 02-18-2024 Episodic Anxiety disorders (12 sources) Generalized anxiety disorder; Translations: [Generalized anxiety disorder] Onset: 09-24-2023 09-24-2023 Chronic Fever of unknown origin (5 sources) Fever, unspecified; Translations: [FEVER UNSPECIFIED] Onset: 10-30-2021 Episodic Headache; including migraine (20 sources) Migraine without aura, not refractory ; Translations: [Chronic migraine without aura, not intractable, without status migrainosus] Onset: 09-13-2022 Resolved: 11-05-2023 10-15-2023 Chronic Immunizations and screening for infectious disease (3 sources) Encounter for screening for human papillomavirus (HPV); Translations: [Contact with or exposure to other viral diseases] Onset: 09-10-2021 02-18-2024 Episodic Menstrual disorders (18 sources) Irregular menstruation, unspecified; Translations: [Excessive and frequent menstruation with regular cycle] Onset: 01-28-2022 Chronic Mood disorders (12 sources) Moderate recurrent major depression; Translations: [Major depressive disorder, recurrent, moderate] Onset: 09-24-2023 09-24-2023 Chronic Other female genital disorders (1 source) Unspecified dyspareunia; Translations: [UNSPECIFIED DYSPAREUNIA] Onset: 01-28-2022 Chronic Other nutritional; endocrine; and metabolic disorders (6 sources) Body mass index 30+ - obesity; Translations: [Obesity, unspecified] Onset: 09-13-2022 09-24-2023 Chronic Other nutritional; endocrine; and metabolic disorders (10 sources) Obesity caused by energy imbalance; Translations: [Class 1 obesity due to excess calories without serious comorbidity with body mass index (BMI) of 32.0 to 32.9 in adult] Onset: 09-13-2022 08-20-2024 Chronic Other upper respiratory infections (10 sources) Acute pharyngitis, unspecified; Translations: [Viral upper respiratory tract infection] Onset: 11-01-2021 Episodic Residual codes; unclassified (4 sources) Hypersomnia; Translations: [Hypersomnia, unspecified] 11-04-2023 Chronic Residual codes; unclassified (2 sources) Obstructive sleep apnea syndrome; Translations: [Obstructive sleep apnea (adult) (pediatric)] 09-02-2024 Chronic Unclassified (1 source) CONTACT W/AND (SUSP) EXPOS COVID-19; Translations: [CONTACT W/AND (SUSP) EXPOS COVID-19] Onset: 11-06-2021 Unclassified (1 source) Cough, unspecified; Translations: [Cough, unspecified] Onset: 02-21-2024 Past or Other Problems Problem Classification Problem Date Documented Date Episodic/Chronic Abdominal pain (4 sources) Left lower quadrant pain; Translations: [LEFT LOWER QUADRANT PAIN] Onset: 03-28-2022 Episodic Cancer of cervix (20 sources) Atypical squamous cells of undetermined significance on cytologic smear of cervix (ASC-US); Translations: [Atypical squamous cells cannot exclude high grade squamous intraepithelial lesion on cytologic smear of cervix (ASC-H)] Onset: 10-30-2021 Resolved: 08-25-2023 Episodic Deficiency and other anemia (12 sources) Anemia; Translations: [Anemia, unspecified] Onset: 09-13-2022 09-13-2022 Episodic Miscellaneous mental health disorders (12 sources) Lack or loss of sexual desire; Translations: [Hypoactive sexual desire disorder] Onset: 09-13-2022 Resolved: 08-25-2023 08-25-2023 Chronic Mycoses (12 sources) Candidiasis; Translations: [Candidiasis, unspecified] Onset: 09-13-2022 Resolved: 08-25-2023 08-25-2023 Episodic Other circulatory disease (12 sources) Elevated blood-pressure reading without diagnosis of hypertension; Translations: [Elevated blood-pressure reading, without diagnosis of hypertension] Onset: 11-05-2023 11-05-2023 Episodic Other ear and sense organ disorders (3 sources) Otalgia, left ear; Translations: [OTALGIA LEFT EAR] Onset: 11-03-2021 Episodic Other female genital disorders (12 sources) Pain in female genitalia on intercourse; Translations: [Unspecified dyspareunia] Onset: 09-13-2022 Resolved: 08-25-2023 08-25-2023 Chronic Other female genital disorders (12 sources) Dysplasia of cervix; Translations: [Dysplasia of cervix uteri, unspecified] Onset: 09-13-2022 Resolved: 08-25-2023 08-25-2023 Episodic Other lower respiratory disease (2 sources) Snoring; Translations: [Snoring] 11-04-2023 Episodic Other screening for suspected conditions (not mental disorders or infectious disease) (4 sources) Encounter for screening for malignant neoplasm of cervix; Translations: [ENC SCREENING MALIG NEOPLASM CERV] Onset: 09-05-2021 Episodic Otitis media and related conditions (14 sources) Otitis media, unspecified, left ear; Translations: [Other acute nonsuppurative otitis media, bilateral] Onset: 11-05-2021 Episodic Pneumonia (except that caused by tuberculosis or sexually transmitted disease) (13 sources) Pneumonia; Translations: [Pneumonia, unspecified organism] Onset: 03-09-2024 Resolved: 08-20-2024 02-21-2024 Episodic Sexually transmitted infections (not HIV or hepatitis) (13 sources) Cervical high risk human papillomavirus (HPV) DNA test positive; Translations: [Human papillomavirus deoxyribonucleic acid test positive, high risk on cervical specimen] Onset: 03-09-2022 Resolved: 08-25-2023 08-25-2023 Episodic Spondylosis; intervertebral disc disorders; other back problems (20 sources) Cervicalgia; Translations: [Chronic neck pain] Onset: 08-25-2023 08-25-2023 Episodic Results Test Name Value Interpretation Reference Range Facility COVID Cepheid NegativeOrdere d By: Lanie Louis on 02-21-2024 SARS-CoV-2 (COVID-19) Ab IA Ql COVID Cepheid Negative [facility] Comment on above: This is a duplicate Cepheid Xpert Xpress CoV-2/Flu/RSV Plus RNA by RT-PCR result to be used for statistical tracking purpose only. COVID-19 / Flu A/B / RSV PCR on 02-21-2024 SARS-CoV-2 (COVID-19) RNA NATHAN+probe Ql (Unsp spec) COVID-19 Cepheid Result Negative for SARS-CoV-2 RNA by RT-PCR Flu A Cepheid Result Negative for Flu A RNA by RT-PCR Flu B Cepheid Result Negative for Flu B RNA by RT-PCR RSV Cepheid Result Negative for RSV RNA by RT-PCR COVID19 Blank Space Reference: Negative COVID19 Blank Space Cepheid Disclaimer The Cepheid Xpert Xpress CoV-2/Flu/RSV Plus has Cepheid Disclaimer not been FDA cleared or approved; this test has Cepheid Disclaimer been authorized by FDA under an EUA for use by Cepheid Disclaimer authorized laboratories; this test has been Cepheid Disclaimer authorized only for the simultaneous qualitative Cepheid Disclaimer detection and differentiation of nucleic acids from Cepheid Disclaimer SARS-CoV-2, influenza A, influenza B, and Cepheid Disclaimer respiratory syncytial virus (RSV), and not for any Cepheid Disclaimer other viruses or pathogens; and this test is only Cepheid Disclaimer authorized for the duration of the declaration that Cepheid Disclaimer circumstances exist justifying the authorization of Cepheid Disclaimer emergency use of in vitro diagnostic tests for Cepheid Disclaimer detection and/or diagnosis of COVID-19 under Cepheid Disclaimer Section 564(b)(1) of the Act, 21 U.S.C. 360bbb- Cepheid Disclaimer 3(b)(1), unless the authorization is terminated or Cepheid Disclaimer revoked sooner. PERFORMED BY: [facility] [place] [address] PATHOLOGIST BACK TENDER CANDIDA QUIROZ M.D. Normal [facility] Comment on above: Performed By: #### C OVID19 FLU RSV, CEPHEID NEG #### [address] Cepheid COVID PCR Negativeon 02-21-2024 SARS-CoV-2 (COVID-19) RNA NATHAN+probe Ql (Unsp spec) Negative Normal Negative [facility] Comment on above: Result Comment: This is a duplicate Cepheid Xpert Xpress CoV-2/Flu/RSV Plus RNA by RT-PCR result to be used for statistical tracking purpose only. PERFORMED BY: [place] [address] PATHOLOGIST BACK TENDER CANDIDA QUIROZ M.D. Performed By: #### C OVID19 FLU RSV, CEPHEID NEG #### [address] Respiratory specimen influen za A virus, influenza B virus, respiratory syncytical virOrdered By: Lanie Louis on 02-21-2024 SARS-CoV-2 (COVID-19) RNA NATHAN+probe Ql (Unsp spec) Respiratory specimen influenza A virus, influenza B virus, respiratory syncytical vir [facility] X-ray reportOrdered By: Renu Godoy on 02-21-2024 Study report [facility] Main Cook [address] [place] [address] XRay Report Signed Patient: Paula Wild MR#: [id number] : 1990 Acct:[id number] Age/Sex: 33 / F ADM Date: 4 Loc: ER Room: Type: [facility] ER Attending Dr: Copies to: LEXIE Najera~ Ordering Provider: LEXIE Najera Date of Service: 02/21/24 XR/XR chest 2V*: Upper Respiratory Infection PA AND LATERAL CHEST: CLINICAL HISTORY: Productive cough, congestion and fever COMPARISON: None There is minor patchy airspace opacity at the superior segment of the right lower lobe. There is no additional consolidation, effusion or pneumothorax. The cardiac, hilar and mediastinal silhouettes are within normal limits. Thereis no vascular congestion. The visualized bony thorax is intact. XR/XR chest 2V* IMPRESSION: MINOR RIGHT LOWER LOBE PARENCHYMAL CHANGE. GIVEN THE HISTORY THIS MAY BE PNEUMONIA. CORRELATION FOLLOW-UP ARE SUGGESTED. Impression dictated by: Aida Godoy M.D.02/21/2024 2:36 PM Dictation Location: RADIO-PC-02 Transcribed By: [facility] 02/21/241435 Dictated By: Aida Godoy MD 02/21/241433 Signed By: 02/21/24 143 [facility] Work Phone: XR chest 2V*on 02-21-2024 XR chest 2V* [facility] Main [place] [address] [place] [address] XRay Report Signed Patient: Paula Wild MR#: [id number] : 1990 Acct:[id number] Age/Sex: 33 / F ADM Date: 02/21/24 Loc: ER Room: Type: [facility] ER Attending Dr: Copies to: LEXIE Najera Ordering Provider: LEXIE Najera Date of Service: 02/21/24 XR/XR chest 2V*: Upper Respiratory Infection PA AND LATERAL CHEST: CLINICAL HISTORY: Productive cough, congestion and fever COMPARISON: None There is minor patchy airspace opacity at the superior segment of the right lower lobe. There is no additional consolidation, effusion or pneumothorax. The cardiac, hilar and mediastinal silhouettes are within normal limits. There is no vascular congestion. The visualized bony thorax is intact. XR/XR chest 2V* IMPRESSION: MINOR RIGHT LOWER LOBE PARENCHYMAL CHANGE. GIVEN THE HISTORY THIS MAY BE PNEUMONIA. CORRELATION FOLLOW-UP ARE SUGGESTED. Impression dictated by: Aida Godoy M.D.02/21/2024 2:36 PM Dictation Location: RADIO--02 Transcribed By: ZACK 02/21/241435 Dictated By: Aida Godoy MD 02/21/241433 Signed By: 02/21/24 1436 Normal [facility] No Panel InformationOrdered By: Chary Gerard on 12-16-2023 COVID Antigen (POC) [facility] Quick Strep (POC) [facility] COVID Antigen (POC) [facility] Quick Strep (POC) [facility] XR cervical spine 2Von 09-23 XR cervical spine 2V [facility] Main [address] [place] [address] XRay Report Signed Patient: Paula Wild MR#: [id number] : 1990 Acct:[id number] Age/Sex: 32 / F ADM Date: 09/24/23 Loc: XDCLY Room: Type: [facility] Attending Dr: Alek Posey MD Copies to: [...] Pizarro Jr., D.O.09/24/2023 1:54 PM Dictation Location: [place] [address] Transcribed By: [facility] 09/24/23 1354 Dictated By: Sergio Pizarro Jr DO 09/24/23 1353 Signed By: 09/24/23 1354 Normal [facility] Quick Strepon 09-06-2022 S. pyogenes Org specific cx Ql (Throat) Negative [facility] Other Quick Strep [facility] Other FSHon 07-10-2022 FSH 7.5 mIU/mL Normal [facility] Comment on above: Result Comment: Adul t Female: Follicular phase 3.5 - 12.5 Ovulation phase 4.7 - 21.5 Luteal phase 1.7 - 7.7 Postmenopausal 25.8 - 134.8 Performed By: #### C VDTBH #### [facility] [address] [place] [address] Dr. Joy Vargas LUTEINIZING HORMONE (LH)on 0 07-10-2022 LH 19.8 mIU/mL Normal [facility] Comment on above: Result Comment: Adul t Female: Follicular phase 2.4 - 12.6 Ovulation phase 14.0 - 95.6 Luteal phase 1.0 - 11.4 Postmenopausal 7.7 - 58.5 Performed By: #### L BCLH #### [facility] [address] [place] [address] Dr. Joy Vargas PROLACTINon 07-10-2022 Prolactin 8.0 ng/mL Normal 4.8-23.3 [facility] Comment on above: Performed By: #### C VDTBH #### [facility] [address] [place] [address] Dr. Joy Vargas CBC AUTO DIFFon 07-09-2022 BASO # 0.1 103/ul Normal 0.0-0.1 [facility] Comment on above: Performed By: #### C VDTBH #### [facility] [address] [place] [address] Dr. Joy Vargas Basophils/100 WBC (Bld) 0.6 % Normal 0.2-2.0 [facility] Comment on above: Performed By: #### C VDTBH #### [facility] [address] [place] [address] Dr. Joy Vargas EO # 0.1 103/ul Normal 0.0-0.7 [facility] Comment on above: Performed By: #### C VDTBH #### [facility] [address] [place] [address] Dr. Joy Vargas Eosinophils/100 WBC (Bld) 1.1 % Normal 0.9-7.0 [facility] Comment on above: Performed By: #### C VDTBH #### [facility] [address] [place] [address] Dr. Joy Vargas Erythrocyte distribution width (RBC) [Ratio] 14.0 % Normal 11.0-15.0 [facility] Comment on above: Performed By: #### C VDTBH #### [facility] [address] [place] [address] Dr. Joy Vargas Hematocrit (Bld) [Volume fraction] 36.8 % Normal 36.0-48.0 [facility] Comment on above: Performed By: #### C VDTBH #### [facility] [address] [place] [address] Dr. Joy Vargas Hemoglobin (Bld) [Mass/Vol] 12.0 g/dL Normal 12.0-16.0 [facility] Comment on above: Performed By: #### C VDTBH #### [facility] [address] [place] [address] Dr. Joy Vargas IG # 0.01 10e3/ul Normal 0.00-0.03 [facility] Comment on above: Performed By: #### C VDTBH #### [facility] [address] [place] [address] Dr. Joy Vargas IG % 0.1 % Normal 0.0-0.5 [facility] Comment on above: Performed By: #### C VDTBH #### [facility] [address] [place] [address] Dr. Joy Vargas LYMPH # 2.6 103/ul Normal 1.2-3.8 [facility] Comment on above: Performed By: #### C VDTBH #### [facility] [address] [place] [address] Dr. Joy Vargas Lymphocytes/100 WBC (Bld) 32.2 % Normal 20.5-60.0 [facility] Comment on above: Performed By: #### C VDTBH #### [facility] [address] [place] [address] Dr. Joy Vargas MANUAL DIFF REQ NO Normal [facility] Comment on above: Performed By: #### C VDTBH #### [facility] [address] [place] [address] Dr. Joy Vargas MCH (RBC) [Entitic mass] 27.0 pg Normal 26.7-34.0 [facility] Comment on above: Performed By: #### C VDTBH #### [facility] [address] [place] [address] Dr. Joy Vargas MCHC (RBC) [Mass/Vol] 32.6 g/dL Normal 29.9-35.2 [facility] Comment on above: Performed By: #### C VDTBH #### [facility] [address] [place] [address] Dr. Joy Vargas MCV (RBC) [Entitic vol] 82.9 fL Normal 81.0-99.0 [facility] Comment on above: Performed By: #### C VDTBH #### [facility] [address] [place] [address] Dr. Joy Vargas MONO # 0.5 103/ul Normal 0.3-0.8 [facility] Comment on above: Performed By: #### C VDTBH #### [facility] [address] [place] [address] Dr. Joy Vargas Monocytes/100 WBC (Bld) 5.8 % Normal 1.7-12.0 [facility] Comment on above: Performed By: #### C VDTBH #### [facility] [address] [place] [address] Dr. Joy Vargas NEUT # 4.8 103/ul Normal 1.4-6.5 [facility] Comment on above: Performed By: #### C VDTBH #### [facility] [address] [place] [address] Dr. Joy Vargas Neutrophils/100 WBC (Bld) 60.2 % Normal 43.0-75.0 [facility] Comment on above: Performed By: #### C VDTBH #### [facility] [address] [place] [address] Dr. Joy Vargas Platelet mean volume (Bld) [Entitic vol] 10.0 fL Normal 9.5-13.5 [facility] Comment on above: Performed By: #### C VDTBH #### [facility] [address] [place] [address] Dr. Joy Vargas PLT 321 103/ul Normal 150-450 [facility] Comment on above: Performed By: #### C VDTBH #### [facility] [address] [place] [address] Dr. Joy Vargas RBC 4.44 106/ul Normal 4.20-5.40 [facility] Comment on above: Performed By: #### C VDTBH #### [facility] [address] [place] [address] Dr. Joy Vargas WBC 7.9 103/ul Normal 4.0-11.0 [facility] Comment on above: Performed By: #### C VDTBH #### [facility] [address] [place] [address] Dr. Joy Vargas FREE T4on 07-09-2022 Free T4 [Mass/Vol] 0.99 ng/dL Normal 0.76-1.46 [facility] Comment on above: Performed By: #### C VDTBH #### [facility] [address] [place] [address] Dr. Joy Vargas Pap IG,rfx Aptima HPV all pt hon 07-09-2022 . . Normal [facility] Comment on above: Performed By: #### C VDTBH #### [facility] [address] [place] [address] Dr. Joy Vargas DIAGNOSIS: Comment Normal [facility] Comment on above: Result Comment: NEGA TIVE FOR INTRAEPITHELIAL LESION OR MALIGNANCY. Performed By: #### C VDTBH #### [facility] [address] [place] [address] Dr. Joy Vargas Methodology: Comment Normal [facility] Comment on above: Result Comment: This liquid based ThinPrep(R) pap test was screened with the use of an image guided system. Performed By: #### C VDTBH #### [facility] [address] [place] [address] Dr. Joy Vargas Note: Comment Normal [facility] Comment on above: Result Comment: The Pap smear is a screening test designed to aid in the detection of premalignant and malignant conditions of the uterine cervix. It is not a diagnostic procedure and should not be used as the sole means of detecting cervical cancer. Both false-positive and false-negative reports do occur. . Performed By: #### C VDTBH #### [facility] [address] [place] [address] Dr. Joy Vargas Performed by: Comment Normal [place] Comment on above: Result Comment: James Tony, Transportation Assistant (ASCP) Performed By: #### C VDTBH #### [facility] [address] [place] [address] Dr. Joy Vargas Reflex Criteria: Comment Normal [facility] Comment on above: Result Comment: The HPV DNA reflex criteria were not met with this specimen result therefore, no HPV testing was performed. . Performed By: #### C VDTBH #### [facility] [address] [place] [address] Dr. Joy Vargas Specimen adequacy: Comment Normal [facility] Comment on above: Result Comment: Sati sfactory for evaluation. Endocervical and/or squamous metaplastic cells (endocervical component) are present. Performed By: #### C VDTBH #### [facility] [address] [place] [address] Dr. Joy Vargas TSHon 07-09-2022 TSH 1.495 uIU/mL Normal 0.358-3.740 [place] Comment on above: Performed By: #### T #### [facility] [address] [place] [address] Dr. Joy Vargas US PELVIS AND TRANSVAGon [...] TIAGO VIEYRA Date: 2022-07-09 13:57 Normal [facility] PREG QUANT HCGon 07-02-2022 HCG QUANT <1 Normal [facility] Comment on above: Performed By: #### P REGQNT #### [facility] [address] [place] [address] Dr. Joy Vargas HCG RANGE SEE BELOW Normal [facility] Comment on above: Result Comment: 5-50 0.2-1 WEEK 50-500 1-2 WEEKS 100-5,000 2-3 WEEKS 500-10,000 3-4 WEEKS 1,000-50,000 4-5 WEEKS 10,000-100,000 5-6 WEEKS 15,000-200,000 6-8 WEEKS 10,000-100,000 2-3 MONTHS Performed By: #### P REGQNT #### [facility] [address] [place] [address] Dr. Joy Vargas ER URINE PROFILEon 2 Bilirubin Ql (U) Negative Normal NEGATIVE [facility] Comment on above: Performed By: #### MIRANDA AMANDA, ERUR #### [facility] [address] [place] [address] Dr. Joy Vargas Clarity (U) CLEAR Normal CLEAR [facility] Comment on above: Performed By: #### P MIRANDA DIAZ, ERUR #### [facility] [address] [place] [address] Dr. Joy Vargas Color (U) LT. YELLOW Normal YELLOW [facility] Comment on above: Performed By: #### P MIRANDA DIAZ, ERUR #### [facility] [address] [place] [address] Dr. Joy Vargas ERUAHD A micrscopic examination will be performed if indicated. Normal [facility] Comment on above: Performed By: #### P REGU, UMICRO, ERUR #### [facility] [address] [place] [address] [address] Joy Vargas Glucose Ql (U) Negative Normal NEGATIVE [facility] Comment on above: Performed By: #### P REGU, UMICRO, ERUR #### [facility] [address] [place] [address] [address] Joy Vargas Hemoglobin Ql (U) TRACE-INTACT Abnormal NEGATIVE [facility] Comment on above: Performed By: #### P REGU, UMICRO, ERUR #### [facility] [address] [place] [address] [address] Joy Vargas Ketones Ql (U) Negative Normal NEGATIVE [facility] Comment on above: Performed By: #### P REGU, UMICRO, ERUR #### [facility] [address] [place] [address] [address] Joy Vargas LEUKOCYTES SMALL Abnormal NEGATIVE [facility] Comment on above: Performed By: #### P REGU, UMICRO, ERUR #### [facility] [address] [place] [address] [address] Joy Vargas Nitrite Ql (U) Negative Normal NEGATIVE [facility] Comment on above: Performed By: #### P REGU, UMICRO, ERUR #### [facility] [address] [place] [address] [address] Joy Vargas pH (U) 6.0 [pH] Normal 5-9 [facility] Comment on above: Performed By: #### P REGU, UMICRO, ERUR #### [facility] [address] [place] [address] [address] Joy Vargas SPEC GRAVITY 1.025 Normal 1.005-<=1.025 [facility] Comment on above: Performed By: #### P REGU, UMICRO, ERUR #### [facility] [address] [place] [address] [address] Joy Vargas UA PROTEIN Negative Normal NEGATIVE/ TRACE [facility] Comment on above: Performed By: #### P REGU, UMICRO, ERUR #### [facility] [address] [place] [address] [address] Joy Vargas UR MICRO IND INDICATED Normal [facility] Comment on above: Performed By: #### P REGU, UMICRO, ERUR #### [facility] [address] [place] [address] [address] Joy Vargas Urobilinogen Qn (U) 0.2 {Gerson'U}/dL Normal 0.2 - 1. 0 [facility] Comment on above: Performed By: #### P REGU, UMICRO, ERUR #### [facility] [address] [place] [address] [address] Joy Vargas URon 03-28-2022 , QUAL Negative Normal NEGATIVE [facility] Comment on above: Performed By: #### P REGU, UMICRO, ERUR #### [facility] [address] [place] [address] Dr. Joy Vargas URINE MICROSCOPIC ONLYon BACTERIA TRACE Abnormal NONE SEEN [facility] Comment on above: Performed By: #### P REGU, UMICRO, ERUR #### [facility] [address] [place] [address] Dr. Joy Vargas Bacteria identified Cx Nom (U) NOT INDICATED Normal [facility] Comment on above: Performed By: #### P REGU, UMICRO, ERUR #### [facility] [address] [place] [address] [address] Joy Vargas CAST NONE SEEN Normal NONE SEEN [facility] Comment on above: Performed By: #### P REGU, UMICRO, ERUR #### [facility] [address] [place] [address] [address] Joy Vargas Crystals LM Nom (Urine sed) NONE SEEN Normal NONE SEEN [facility] Comment on above: Performed By: #### P REGU, UMICRO, ERUR #### [facility] [address] [place] [address] [address] Joy Vargas Epithelial cells LM Ql (Urine sed) FEW Abnormal NONE SEEN /RARE [facility] Comment on above: Performed By: #### P MIRANDA DIAZ, ERUR #### [facility] [address] [place] [address] [address] Joy Vargas MUCOUS NONE SEEN Normal NONE SEEN [facility] Comment on above: Performed By: #### P REGU, OMIDRO, ERUR #### [facility] [address] [place] [address] [address] Joy Vargas RBC 0-2 Normal 0-2 [facility] Comment on above: Performed By: #### P MIRANDA DIAZ, ERUR #### [facility] [address] [place] [address] [address] Joy Vargas WBC 0-2 Abnormal NONE SEEN [facility] Comment on above: Performed By: #### P MIRANDA DIAZ, ERUR #### [facility] [address] [place] [address] [address] Joy Vargas XR ABD FLAT UP_PA [...] DORIAN SHARMA Date: 2022-03-28 20:31 Normal [facility] Pap IG,rfx Aptima HPV all pt hon 03-15-2022 . . Normal [facility] Comment on above: Performed By: #### C VDTBH #### [facility] [address] [place] [address] [address] Joy Vargas DIAGNOSIS: Comment Abnormal [facility] Comment on above: Result Comment: EPIT HELIAL CELL ABNORMALITY. ATYPICAL SQUAMOUS CELLS OF UNDETERMINED SIGNIFICANCE (ASC-US). Performed By: #### C VDTBH #### [facility] [address] [place] [address] Dr. Joy Vargas Electronically signed by: Comment Normal [facility] Comment on above: Result Comment: Bora Yu MD, Pathologist Performed By: #### C VDTBH #### [facility] [address] [place] [address] Dr. Joy Vargas HPV Aptima Negative Normal Negative [facility] Comment on above: Result Comment: This nucleic acid amplification test detects fourteen high-risk HPV types (16,18,31,33,35,39,45,51,52,56,58,59,66,68) without differentiation. Performed By: #### C VDTBH #### [facility] [address] [place] [address] Dr. Joy Vargas Methodology: Comment Normal [facility] Comment on above: Result Comment: This liquid based ThinPrep(R) pap test was screened with the use of an image guided system. Performed By: #### C VDTBH #### [facility] [address] [place] [address] Dr. Joy Vargas Note: Comment Normal [facility] Comment on above: Result Comment: The Pap smear is a screening test designed to aid in the detection of premalignant and malignant conditions of the uterine cervix. It is not a diagnostic procedure and should not be used as the sole means of detecting cervical cancer. Both false-positive and false-negative reports do occur. . Performed By: #### C VDTBH #### [facility] [address] [place] [address] Dr. Joy Vargas Pathologist Provided ICD10 Comment Normal [facility] Comment on above: Result Comment: R87. [id number] Performed By: #### C VDTBH #### [facility] [address] [place] [address] Dr. Joy Vargas Performed by: Comment Normal [place] Comment on above: Result Comment: Sera Song, Transportation Assistant (ASCP) Performed By: #### C VDTBH #### [facility] [address] [place] [address] Dr. Joy Vargas Reflex Criteria: Comment Normal [facility] Comment on above: Result Comment: See below for HPV testing results. . Performed By: #### C VDTBH #### [facility] [address] [place] [address] Dr. oJy Vargas Specimen adequacy: Comment Normal [facility] Comment on above: Result Comment: Sati sfactory for evaluation. Endocervical and/or squamous metaplastic cells (endocervical component) are present. Performed By: #### C VDTBH #### [facility] [address] [place] [address] Dr. Joy Vargas CBC AUTO DIFFon 11-09-2021 BASO # 0.0 103/ul Normal 0.0-0.1 [facility] Comment on above: Performed By: #### C BC #### [facility] [address] [place] [address] Dr. Joy Vargas Basophils/100 WBC (Bld) 0.3 % Normal 0.2-2.0 [facility] Comment on above: Performed By: #### C BC #### [facility] [address] [place] [address] Dr. Joy Vargas EO # 0.1 103/ul Normal 0.0-0.7 [facility] Comment on above: Performed By: #### C BC #### [facility] [address] [place] [address] Dr. Joy Vargas Eosinophils/100 WBC (Bld) 0.9 % Normal 0.9-7.0 [facility] Comment on above: Performed By: #### C BC #### [facility] [address] [place] [address] Dr. Joy Vargas Erythrocyte distribution width (RBC) [Ratio] 12.8 % Normal 11.0-15.0 [facility] Comment on above: Performed By: #### C BC #### [facility] [address] [place] [address] Dr. Joy Vargas Hematocrit (Bld) [Volume fraction] 37.2 % Normal 36.0-48.0 [facility] Comment on above: Performed By: #### C BC #### [facility] [address] [place] [address] Dr. Joy Vargas Hemoglobin (Bld) [Mass/Vol] 12.4 g/dL Normal 12.0-16.0 [facility] Comment on above: Performed By: #### C BC #### [facility] [address] [place] [address] Dr. Joy Vargas IG # 0.02 10e3/ul Normal 0.00-0.03 [facility] Comment on above: Performed By: #### C BC #### [facility] [address] [place] [address] Dr. Joy Vargas IG % 0.2 % Normal 0.0-0.5 [facility] Comment on above: Performed By: #### C BC #### [facility] [address] [place] [address] Dr. Joy Vargas LYMPH # 2.7 103/ul Normal 1.2-3.8 [facility] Comment on above: Performed By: #### C BC #### [facility] [address] [place] [address] Dr. Joy Vargas Lymphocytes/100 WBC (Bld) 29.9 % Normal 20.5-60.0 [facility] Comment on above: Performed By: #### C BC #### [facility] [address] [place] [address] Dr. Joy Vargas MANUAL DIFF REQ NO Normal [facility] Comment on above: Performed By: #### C BC #### [facility] [address] [place] [address] Dr. Joy Vargas MCH (RBC) [Entitic mass] 27.9 pg Normal 26.7-34.0 [facility] Comment on above: Performed By: #### C BC #### [facility] [address] [place] [address] Dr. Joy Vargas MCHC (RBC) [Mass/Vol] 33.3 g/dL Normal 29.9-35.2 [facility] Comment on above: Performed By: #### C BC #### [facility] [address] [place] [address] Dr. Joy Vargas MCV (RBC) [Entitic vol] 83.8 fL Normal 81.0-99.0 [facility] Comment on above: Performed By: #### C BC #### [facility] [address] [place] [address] Dr. Joy Vargas MONO # 0.6 103/ul Normal 0.3-0.8 [facility] Comment on above: Performed By: #### C BC #### [facility] [address] [place] [address] Dr. Joy Vargas Monocytes/100 WBC (Bld) 6.2 % Normal 1.7-12.0 [facility] Comment on above: Performed By: #### C BC #### [facility] [address] [place] [address] Dr. Joy Vargas NEUT # 5.7 103/ul Normal 1.4-6.5 [facility] Comment on above: Performed By: #### C BC #### [facility] [address] [place] [address] Dr. Joy Vargas Neutrophils/100 WBC (Bld) 62.5 % Normal 43.0-75.0 [facility] Comment on above: Performed By: #### C BC #### [facility] [address] [place] [address] Dr. Joy Vargas Platelet mean volume (Bld) [Entitic vol] 8.9 fL Critically low 9.5-13.5 [facility] Comment on above: Performed By: #### C BC #### [facility] [address] [place] [address] Dr. Joy Vargas PLT 344 103/ul Normal 150-450 [facility] Comment on above: Performed By: #### C BC #### [facility] [address] [place] [address] Dr. Joy Vargas RBC 4.44 106/ul Normal 4.20-5.40 [facility] Comment on above: Performed By: #### C BC #### [facility] [address] [address] [address] Joy Vargas WBC 9.0 103/ul Normal 4.0-11.0 [facility] Comment on above: Performed By: #### C BC #### [facility] [address] [place], [place] [address] Dr. Joy Vargas PREG HCG QUALon 11-09-2021 , QUAL Negative Normal NEGATIVE [facility] Comment on above: Performed By: #### C VDTBH #### [facility] [address] [address] [address] Joy Vargas Covid-19 PCR (CVDTBH)on 10-06 SARS-CoV-2 (COVID-19) RNA NATHAN+probe Ql (Unsp spec) Not detected Normal NOT DETECTED [facility] Comment on above: Result Comment: This test is not yet approved or cleared by the [place] FDA. When there are no FDA-approved or cleared tests available, and other criteria are met, FDA can make tests available under an emergency access mechanism called an Emergency Use Authorization (EUA). The EUA for this test is supported by the [place] of Health and Human Service's (HHS's) declaration [...] SARS-CoV-2. Performed By: #### C VDTBH #### [facility] [address] [address] [address] Joy Vargas Covid-19 PCR (CVDTBH)on 10-06 SARS-CoV-2 (COVID-19) RNA NATHAN+probe Ql (Unsp spec) Not detected Normal NOT DETECTED [facility] Comment on above: Result Comment: When [...] for this test is supported by the [place] of Health and Human Service's declaration that [...] used). Performed By: #### C VDTBH #### [facility] [address] [place] [address] Dr. Joy Vargas PAP ACOG PANEL 2: 21 to 29on 09-10-2021 . . Normal [facility] Comment on above: Performed By: #### [id number] #### [facility] [address] [place] [address] Dr. Joy Vargas Age Gdln ACOG Testing - Normal [facility] Comment on above: Performed By: #### [id number] #### [facility] [address] [place] [address] Dr. Joy Vargas DIAGNOSIS: Comment Abnormal [facility] Comment on above: Result Comment: EPIT HELIAL CELL ABNORMALITY. ATYPICAL SQUAMOUS CELLS, CANNOT EXCLUDE HIGH-GRADE SQUAMOUS INTRAEPITHELIAL LESION (ASC-H). Performed By: #### [id number] #### [facility] [address] [place] [address] Dr. Joy Vargas Electronically signed by: Comment Normal [facility] Comment on above: Result Comment: Arianna Nina MD, Pathologist Performed By: #### [id number] #### [facility] [address] [place] [address] Dr. Joy Vargas Methodology: Comment Normal [facility] Comment on above: Result Comment: This liquid based ThinPrep(R) pap test was screened with the use of an image guided system. Performed By: #### 4 [id number] #### [facility] [address] [place] [address] Dr. Joy Vargas Note: Comment Normal [facility] Comment on above: Result Comment: The Pap smear is a screening test designed to aid in the detection of premalignant and malignant conditions of the uterine cervix. It is not a diagnostic procedure and should not be used as the sole means of detecting cervical cancer. Both false-positive and false-negative reports do occur. . Performed By: #### [id number] #### [facility] [address] [place] [address] Dr. Joy Vargas Pathologist Provided ICD10 Comment Normal [facility] Comment on above: Result Comment: [id number] Performed By: #### [id number] #### [facility] [address] [place] [address] Dr. Joy Vargas Performed by: Comment Normal [place] Comment on above: Result Comment: Aileen Meza, Transportation Assistant (ASCP) Performed By: #### 4 [id number] #### [facility] [address] [place] [address] Dr. Joy Vargas Recommendation: Comment Abnormal [facility] Comment on above: Result Comment: Sugg est follow up as clinically appropriate. Performed By: #### 4 [id number] #### [facility] [address] [place] [address] Dr. Joy Vargas Reflex Criteria: Comment Normal [facility] Comment on above: Result Comment: The HPV DNA reflex criteria were not met with this specimen result therefore, no HPV testing was performed. . Performed By: #### [id number] #### [facility] [address] [place] [address] Dr. Joy Vargas Specimen adequacy: Comment Normal [facility] Comment on above: Result Comment: Sati sfactory for evaluation. Endocervical and/or squamous metaplastic cells (endocervical component) are present. Performed By: #### 4 [id number] #### [facility] [address] [address] [address] Joy Vargas Vital Signs Date Time Vital Sign Value Performing Clinician Facility 09-02-2024 13:32-0400 Diastolic blood pressure 103 mm[Hg] Rosario Irwin [employer] Work Phone: [facility] 09-02-2024 13:32-0400 Systolic blood pressure 153 mm[Hg] Rosario Irwin [employer] Work Phone: [facility] 08-20-2024 09:20-0400 Body height 162.6 cm Alek Posey MD Work Phone: [facility] 08-20-2024 09:20-0400 Body mass index (BMI) [Ratio] 32.79 kg/m2 Alek Posey MD Work Phone: [facility] 08-20-2024 09:20-0400 Body temperature 97.5 [degF] Alek Posey MD Work Phone: [facility] 08-20-2024 09:20-0400 Body weight 86.64 kg Alek Posey MD Work Phone: [facility] 08-20-2024 09:20-0400 Diastolic blood pressure 92 mm[Hg] Alek Posey MD Work Phone: [facility] 08-20-2024 09:20-0400 Heart rate 89 /min Alek Posey MD Work Phone: [facility] 08-20-2024 09:20-0400 Respiratory rate 22 /min Alek Posey MD Work Phone: [facility] 08-20-2024 09:20-0400 SaO2% (BldA) [Mass fraction] 98 % Alek Posey MD Work Phone: [facility] 08-20-2024 09:20-0400 Systolic blood pressure 130 mm[Hg] Alek Posey MD Work Phone: [facility] 07-16-2024 12:23-0400 Body height 162.56 cm [facility] 07-16-2024 12:23-0400 Body mass index (BMI) [Ratio] 32.8 kg/m2 [facility] 07-16-2024 12:23-0400 Body temperature 98.3 [degF] [facility] 07-16-2024 12:23-0400 Body weight 86.86 kg [facility] 07-16-2024 12:23-0400 Diastolic blood pressure 85 mm[Hg] [facility] 07-16-2024 12:23-0400 Heart rate 71 /min [facility] 07-16-2024 12:23-0400 Respiratory rate 16 /min [facility] 07-16-2024 12:23-0400 SaO2% (BldA) [Mass fraction] 98 % [facility] 07-16-2024 12:23-0400 Systolic blood pressure 133 mm[Hg] [facility] 03-09-2024 13:17-0500 Body height 162.6 cm Alek Posey MD Work Phone: [facility] 03-09-2024 13:17-0500 Body mass index (BMI) [Ratio] 33.3 kg/m2 Alek Posey MD Work Phone: [facility] 03-09-2024 13:17-0500 Body temperature 97.81 [degF] Alek Posey MD Work Phone: [facility] 03-09-2024 13:17-0500 Body weight 88 kg Alek Posey MD Work Phone: [facility] 03-09-2024 13:17-0500 Diastolic blood pressure 64 mm[Hg] Alek Posey MD Work Phone: [facility] 03-09-2024 13:17-0500 Heart rate 104 /min Alek Posey MD Work Phone: [facility] 03-09-2024 13:17-0500 Respiratory rate 20 /min Alek Posey MD Work Phone: [facility] 03-09-2024 13:17-0500 SaO2% (BldA) [Mass fraction] 98 % Alek Posey MD Work Phone: [facility] 03-09-2024 13:17-0500 Systolic blood pressure 126 mm[Hg] Alek Posey MD Work Phone: [facility] 02-21-2024 13:45-0500 Heart rate 88 /min Alek Posey MD Work Phone: [facility] 02-21-2024 13:45-0500 Respiratory rate 20 /min Alek Posey MD Work Phone: [facility] 02-21-2024 13:09-0500 Body height 162.56 cm Alek Posey MD Work Phone: [facility] 02-21-2024 13:09-0500 Body temperature 98 [degF] Alek Posey MD Work Phone: [facility] 02-21-2024 13:09-0500 Body weight 85.3 kg Alek Posey MD Work Phone: [facility] 02-21-2024 13:09-0500 Diastolic blood pressure 91 mm[Hg] Alek Posey MD Work Phone: [facility] 02-21-2024 13:09-0500 SaO2% (BldA) [Mass fraction] 96 % Alek Posey MD Work Phone: [facility] 02-21-2024 13:09-0500 Systolic blood pressure 140 mm[Hg] Alek Posey MD Work Phone: [facility] 02-18-2024 09:58-0500 Body height 162.56 cm [facility] 02-18-2024 09:58-0500 Body mass index (BMI) [Ratio] 31.9 kg/m2 [facility] 02-18-2024 09:58-0500 Body temperature 97.7 [degF] [facility] 02-18-2024 09:58-0500 Body weight 84.36 kg [facility] 02-18-2024 09:58-0500 Diastolic blood pressure 95 mm[Hg] [facility] 02-18-2024 09:58-0500 Heart rate 94 /min [facility] 02-18-2024 09:58-0500 Respiratory rate 18 /min [facility] 02-18-2024 09:58-0500 SaO2% (BldA) [Mass fraction] 96 % [facility] 02-18-2024 09:58-0500 Systolic blood pressure 148 mm[Hg] [facility] 12-16-2023 16:57-0400 Body height 162.56 cm MD Alek Posey Work Phone: [facility] 12-16-2023 16:57-0400 Body mass index (BMI) [Ratio] 33.3 kg/m2 MD Alek Posey Work Phone: [facility] 12-16-2023 16:57-0400 Body temperature 98 [degF] MD Alek Posey Work Phone: [facility] 12-16-2023 16:57-0400 Body weight 88.22 kg MD Alek Posey Work Phone: [facility] 12-16-2023 16:57-0400 Diastolic blood pressure 79 mm[Hg] MD Alek Posey Work Phone: [facility] 12-16-2023 16:57-0400 Heart rate 87 /min MD Alek Posey Work Phone: [facility] 12-16-2023 16:57-0400 Respiratory rate 16 /min MD Alek Posey Work Phone: [facility] 12-16-2023 16:57-0400 SaO2% (BldA) [Mass fraction] 92 % MD Alek Posey Work Phone: [facility] 12-16-2023 16:57-0400 Systolic blood pressure 119 mm[Hg] MD Alek Posey Work Phone: [facility] 07-21-2023 13:06-0400 Body height 160.02 cm [facility] 07-21-2023 13:06-0400 Body mass index (BMI) [Ratio] 35.4 kg/m2 [facility] 07-21-2023 13:06-0400 Body temperature 98.2 [degF] [facility] 07-21-2023 13:06-0400 Body weight 90.71 kg [facility] 07-21-2023 13:06-0400 Heart rate 98 /min [facility] 07-21-2023 13:06-0400 Respiratory rate 16 /min [facility] 07-21-2023 13:06-0400 SaO2% (BldA) [Mass fraction] 98 % [facility] 09-06-2022 12:25-0400 Body height 160.02 cm Ludivina Mac Other [facility] [employer] Other 09-06-2022 12:25-0400 Body mass index (BMI) [Ratio] 34.01 kg/m2 Ludivina Mac Other [employer] Other 09-06-2022 12:25-0400 Body temperature 98.5 [degF] Ludivina Mac Other [employer] Other 09-06-2022 12:25-0400 Body weight 87.09 kg Ludivina Mac Other [employer] Other 09-06-2022 12:25-0400 Respiratory rate 18 /min Ludivina Mac Other [employer] Other 09-06-2022 12:25-0400 SaO2% (BldA) [Mass fraction] 98 % Ludivina Mac Other [employer] Other Encounters Encounter Date Encounter Type Care Provider Facility Start: 10-06-2024 End: 10-06-2024 Bamboo flowsheet Jan Maria D DO Work Phone: [facility] Start: 10-06-2024 End: 10-06-2024 Bamboo flowsheet Jan Maria D DO Work Phone: [facility] Start: 09-02-2024 End: 09-02-2024 Bamboo flowsheet Rosario Irwin [employer] Work Phone: [facility] Start: 09-02-2024 End: 09-02-2024 Bamboo flowsheet Rosario Irwin [employer] Work Phone: [facility] Start: 09-02-2024 End: 09-02-2024 ambulatory ROSARIO IRWIN Not Available Start: 09-02-2024 End: 09-02-2024 Office outpatient visit 25 minutes Rosario Irwin [employer] Work Phone: [facility] Comment on above: [place] (obstructive sle ep apnea) (Primary Dx); Chronic migraine without aura without status migrainosus, not intractable ([facility]); Hypersomnolence Start: 08-20-2024 End: 08-20-2024 Bamboo flowsheet Alek Posey MD Work Phone: [facility] Start: 08-20-2024 End: 08-20-2024 Bamboo flowsheet Alke Posey MD Work Phone: [facility] Start: 08-20-2024 End: 08-20-2024 Patient encounter procedure Alek Posey MD Work Phone: [facility] Start: 08-20-2024 End: 08-20-2024 Periodic preventive med est patient 18-39 yrs Alek Posey MD Work Phone: [facility] Comment on above: Annual physical exam (Primary Dx); Class 1 obesity due to excess calories without serious comorbidity with body mass index (BMI) of 32.0 to 32.9 in adult Start: 08-20-2024 End: 08-20-2024 ambulatory ALEK POSEY Not Available Start: 07-16-2024 End: 07-16-2024 ambulatory [facility] Work Phone: Start: 07-16-2024 End: 07-16-2024 Patient encounter procedure [facility] Phys[facility] Work Phone: Start: 03-09-2024 End: 03-09-2024 Bamboo flowsheet Alek Posey MD Work Phone: [facility] Start: 03-09-2024 End: 03-09-2024 Bamboo flowsheet Alek Posey MD Work Phone: [facility] Start: 03-09-2024 End: 03-09-2024 ambulatory ALEK POSEY Not Available Start: 03-09-2024 End: 03-09-2024 Office outpatient visit 15 minutes Alek Posey MD Work Phone: [facility] Comment on above: Bacterial pneumonia (Primary Dx) Start: 02-21-2024 End: 02-21-2024 Emergency department patient visit Alek Posey MD Work Phone: [facility] Work Phone: Start: 02-18-2024 End: 02-18-2024 ambulatory [facility] [place] Work Phone: Start: 02-18-2024 End: 02-18-2024 Patient encounter procedure [facility] Work Phone: Start: 12-16-2023 End: 12-16-2023 ambulatory MD Alek Posey Work Phone: [facility] Work Phone: Start: 12-16-2023 End: 12-16-2023 Patient encounter procedure MD Alek Posey Work Phone: [facility] Physician [facility] Work Phone: Start: 11-05-2023 End: 11-05-2023 ambulatory ALEK POSEY Not Available Start: 11-04-2023 End: 11-04-2023 ambulatory MILADIS ALISONNAGEL Not Available Start: 11-03-2023 End: 11-03-2023 Patient encounter procedure Montserrat Velasquez DO Work Phone: [facility] Comment on above: Chronic migraine wit hout aura without status migrainosus, not intractable ([facility]); Snoring; Hypersomnolence Start: 11-03-2023 End: 11-03-2023 ambulatory MILADIS ALISONNAGEL Not Available Start: 11-03-2023 Non-patient / Non-visit MD Alma Posey Work Phone: [facility] Work Phone: Start: 10-15-2023 End: 10-15-2023 ambulatory MILADIS CAMACHOJOE Not Available Start: 09-24-2023 End: 09-24-2023 Patient encounter procedure MD Alek Posey Work Phone: [facility] Work Phone: Start: 09-24-2023 End: 09-24-2023 ambulatory MD Alek Posey Work Phone: [facility] Work Phone: Start: 09-24-2023 End: 09-24-2023 ambulatory ALEK POSEY Not Available Start: 09-17-2023 End: 09-17-2023 ambulatory JAN SOTELOO Not Available Start: 08-25-2023 End: 08-25-2023 ambulatory ALEK POSEY Not Available Start: 07-21-2023 End: 07-21-2023 ambulatory [facility] Work Phone: Start: 07-21-2023 End: 07-21-2023 Patient encounter procedure [facility] Work Phone: Start: 09-06-2022 End: 09-06-2022 ambulatory Ludivina Mac Other [facility] [employer] Other Start: 09-06-2022 Office outpatient ne w 30 minutes Ludivina Mac [facility] Start: 07-09-2022 End: 07-10-[address] JAN KILLIAN . Facility:[facility] Start: 07-03-2022 Encounter for cervic al smear to confirm findings of recent normal smear following initial abnormal smear DR JAN KILLIAN . [facility] Start: 07-02-2022 End: 07-02-[address] JAN KILLIAN . Facility:[facility] Start: 07-02-2022 End: 07-02-2022 Encounter for cervical smear to confirm findings of recent normal smear following initial abnormal smear DR JAN KILLIAN . Facility:[facility] Start: 07-02-2022 End: 07-03-[address] JAN KILLIAN . Facility:[facility] Start: 03-28-2022 End: 03-28-[address] FORTINO HURTADO Facility:[facility] Start: 03-05-2022 End: 03-05-[address] JAN KILLIAN . Facility:[facility] Start: 11-09-2021 End: 11-09-[address] JAN KILLIAN . Facility:[facility] Start: 11-06-2021 Encounter for preprocedural laboratory examination DR JAN KILLIAN . [facility] Start: 11-03-2021 End: 11-03-2021 ambulatory ADITYA HARPER Facility:[facility] Start: 10-31-2021 End: 11-01-[address] JAN KILLIAN . Facility:[facility] Start: 10-31-2021 End: 11-01-2021 Encounter for preprocedural laboratory examination DR JAN KILLIAN . Facility:[facility] Start: 10-30-2021 Encounter for other preprocedural examination DR JAN KILLIAN . [facility] Start: 10-30-2021 End: 10-30-[address] FORTINO HURTADO Facility:[facility] Start: 10-25-2021 End: 10-26-[address] JAN KILLIAN . Facility:[facility] Start: 10-25-2021 End: 10-26-2021 Encounter for other preprocedural examination DR JAN KILLIAN . Facility:[facility] Start: 09-05-2021 End: 09-05-[address] JAN KILLIAN . Facility: Procedures Date Procedure Procedure Detail Performing Clinician Start: 02-21-2024 Viral nucleic acid assay Alek Posey MD Work Phone: Start: 02-21-2024 Plain chest X-ray Alek Posey MD Work Phone: Start: 12-16-2023 COVID Antigen (POC) MD Alek Posey Work Phone: Start: 12-16-2023 Quick Strep (POC) MD Richard Posey Work Phone: Start: 09-24-2023 X-ray of cervical spine MD Alek Posey Work Phone: Start: 09-17-2023 Microscopic observat ion [Identifier] in Cervix by Cyto stain Alek Posey MD Work Phone: Start: 07-02-2022 Microscopic observat ion [Identifier] in Cervix by Cyto stain Montserrat Velasquez DO Work Phone: Plan of Treatment Date Care Activity Detail Author Start: 09-16-2028 Screening for malign ant neoplasm of cervix [facility] Start: 07-03-2027 Screening for malign ant neoplasm of cervix [facility] Start: 12-06-2024 Influenza vaccination [facility] Start: 11-19-2024 End: 11-19-2024 Patient encounter procedure 11/19/2024 9:45 AM EDT Office Visit [facility] [address] [place] [id number] Alek Posey MD [address] [place] [id number] [facility] Start: 10-06-2024 End: 10-06-2024 Patient encounter procedure [facility] Comment on above: Arrived Start: 09-02-2024 End: 09-02-2024 Patient encounter procedure 09/02/2024 1:20 PM EDT Office Visit [facility] [address] [place] [phone] Rosario Irwin NP [address] [place] [address] [facility] Start: 08-20-2024 End: 08-20-2025 Basic metabolic 1998 panel - Serum or Plasma Basic metabolic panel Lab Routine Annual physical exam Expected: 08/20/2024 (Approximate), Expires: 08/20/2025 [facility] Comment on above: Expected: 08/20/2024 (Approximate), Expires: 08/20/2025 Start: 08-20-2024 End: 08-20-2025 CBC W Auto Differential panel - Blood CBC and differential Lab Routine Annual physical exam Expected: 08/20/2024 (Approximate), Expires: 08/20/2025 [facility] Comment on above: Expected: 08/20/2024 (Approximate), Expires: 08/20/2025 Start: 08-20-2024 End: 08-20-2025 Hemoglobin A1c/Hemoglobin.total in Blood Hemoglobin A1c Lab Routine Annual physical exam Expected: 08/20/2024 (Approximate), Expires: 08/20/2025 [facility] Work Phone: Comment on above: Expected: 08/20/2024 (Approximate), Expires: 08/20/2025 Start: 08-20-2024 End: 08-20-2025 Hepatic function 2000 panel - Serum or Plasma Hepatic function panel Lab Routine Annual physical exam Expected: 08/20/2024 (Approximate), Expires: 08/20/2025 [facility] Comment on above: Expected: 08/20/2024 (Approximate), Expires: 08/20/2025 Start: 08-20-2024 End: 08-20-2025 Lipid 1996 panel - Serum or Plasma Lipid panel Lab Routine Annual physical exam Expected: 08/20/2024 (Approximate), Expires: 08/20/2025 [facility] Comment on above: Expected: 08/20/2024 (Approximate), Expires: 08/20/2025 Start: 08-20-2024 End: 08-20-2025 TSH W/REFLEX TO FT4 TSH W/REFLEX TO FT4 Lab Routine Annual physical exam Expected: 08/20/2024 (Approximate), Expires: 08/20/2025 [facility] Comment on above: Expected: 08/20/2024 (Approximate), Expires: 08/20/2025 Start: 08-20-2024 End: 08-20-2024 Patient encounter procedure 08/20/2024 9:15 AM EDT Office Visit [facility] [address] [place] [phone] Alek Posey MD [address] [place] [phone] Arrived [facility] Comment on above: Arrived Start: 01-08-2024 End: 01-08-2024 Patient encounter procedure 01/08/2024 1:00 PM EDT Office Visit [facility] [address] [place] [address] Miladis Kirk, [employer] [address] [place], [place] [id number] [facility] [address] Start: 12-07-2023 Influenza vaccination Influenza Vacc ine (#1) [facility] Patient Education Pneumonia, Adult ED [facility] Work Phone: Patient referral [facility] Work Phone: Immunizations Immunization Date Immunization Notes Care Provider Fa cility 01-05-2015 influenza virus vacc ine, unspecified formulation Montserrat Velasquez DO Work Phone: [facility] Payers Date Payer Category Payer Self-pay [id number] 2018 [facility] BCBS [id number] 2018 Unknown BCBS BCBS xxxxxx [id number] 2018-Present [phone] [address] [place] [address] [id number]. [id number] 1991 Unknown [id number] 2.16.840.1.017951.3.579.2. 593 1991 Unknown [id number] 2.16.840.1.722551.3.579.2. 593 1991 Unknown [id number] 2.16.840.1.636709.3.579.2. 593 1991 Unknown [id number] 2.16.840.1.364427.3.579.2. 593 1991 Unknown [id number] 2.16.840.1.943799.3.579.2. 593 1991 Unknown [id number] 2.16.840.1.771994.3.579.2. 593 1991 Unknown [id number] 2.16.840.1.576220.3.579.2. 593 1991 Unknown [id number] 2.16.840.1.143838.3.579.2. 593 1991 Unknown [id number] 2.16.840.1.635595.3.579.2. 593 1991 Unknown [id number] 2.16.840.1.707041.3.579.2. 593 1991 Unknown [id number] 2.16.840.1.803691.3.579.2. 593 1991 Unknown [id number] 2.16.840.1.094179.3.579.2. 593 1991 Unknown [id number] 2.16.840.1.133679.3.579.2. 1258 1991 Unknown [id number] 2.16.840.1.991609.3.579.2. 1258 1991 Unknown [id number] 2.16.840.1.108351.3.579.2. 1258 1991 Unknown [id number] 2.16840.1.949578.3.579.2. 1258 1991 Unknown [id number] 2.840.1.755072.3.579.2. 1258 1991 Unknown [id number] 2.840.1.137558.3.579.2. 1258 1991 Unknown [id number] 2.16840.1.458041.3.579.2. 1258 1991 Unknown [id number] 2.16840.1.476403.3.579.2. 1258 1991 Unknown [id number] 2.16840.1.279960.3.579.2. 1258 1991 Unknown [id number] .840.1.467870.3.579.2. 9 1959 Unknown [id number] 1959 Unknown [id number] Medicaid [id number] Unknown [id number] 2.16840.1.501218.3.579.2. 531 Unknown [id number] 2.16840.1.319427.3.579.2. 531 Social History Date Type Detail Facility Unknown if ever smoked [employer] Other Start: 11-05-2023 End: 08-20-2024 Sex Assigned At [facility] [employer] Other Start: 07-12-2018 End: 08-25-2023 Tobacco smoking status NHIS Never smoked tobacco (finding) [facility] Start: 1990 Sex Assigned At Female [facility] Start: 02-18-2024 End: 07-16-2024 Sex Female (finding) [facility] Start: 08-25-2023 Tobacco use and exposure Smokeless tobacco non-user [facility] Start: 11-05-2023 End: 08-20-2024 Alcoholic beverage intake Lifetime non-drinker (finding) [facility] Start: 11-05-2023 End: 08-20-2024 History of Social function [facility] Start: 1990 Sex assigned at Not on file [facility] NEGATED: Highlighted row [facility] Clinical Notes 11-09-2021 to 09-02-2024 Rosario Irwin NP - 09/02/2024 1:20 PM Blanca Posey MD - 08/20/2024 10:10 AM Blanca Posey MD - 08/20/2024 9:15 AM Blanca Posey MD - 03/09/2024 1:38 PM EST Note Date & Type Note Facility 09-02-2024 History of Present illness Narrative Images from the original note were not included. Subjective Paula Wild is a 33 y.o. year old female Chief Complaint Patient presents with Migraine HPI Paula stopped the ajovy due to breaking out in hives. She states the migraines can vary. She can have a couple per month or have them every other day. She states the imitrex does normally help to abort. She will occasionally wake up the next day with one and wonders if she should take another one the next day. She admits light and sound sensitivity. She admits nausea. Patient had a HST done since last visit. She states she was unsure if she needed a PAP machine. She did not have a titration done. 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 Dyspareunia in female Dysplasia of cervix Fibrocystic breast H/O LEEP Lack of sexual desire Menorrhagia Migraine Obesity (BMI 30-39.9) Yeast infection Past Surgical History: Procedure Laterality Date APPENDECTOMY HERNIA REPAIR 2018 OTHER SURGICAL HISTORY 11/2021 LEEP Family History Problem Relation Name Age of Onset Heart disease Mother Gita Cancer Mother Gita Heart failure Mother Gita Diabetes Father Rashaad Hypertension Father Rashaad Diabetes Maternal Grandmother Lilliana Cancer Paternal Grandmother Melania Hypertension Paternal Grandmother Melania Social History Tobacco Use Smoking status: Never Smokeless tobacco: Never Substance Use Topics Alcohol use: Never Medication Documentation Review Audit Reviewed by Maria Eugenia Coreas MA (Humanities And Languages Professor) on 09/02/24 at 1331 Medication Order Taking? Sig Documenting Provider Last Dose Status Patient not taking: Discontinued 09/02/24 1331 Patient not taking: Discontinued 09/02/24 1331 Semaglutide-Weight Management (Wegovy) 0.25 MG/0.5ML solution auto-injector [id number] Yes Inject 0.25 mg under the skin 1 (one) time per week Alek Posey MD Active SUMAtriptan (Imitrex) 100 MG tablet [id number] Yes Take 1 tablet (100 mg) by mouth 1 (one) time if needed for migraine (may repeat x1) Montserrat Velasquez DO Active ROS Review of Systems Eyes: Positive for photophobia. Respiratory: Negative for chest tightness and shortness of breath. Cardiovascular: Negative for palpitations. Musculoskeletal: Positive for back pain and neck stiffness. Neurological: Negative for dizziness, tremors, seizures, syncope, facial asymmetry, speech difficulty and light-headedness. Psychiatric/Behavioral: Negative for sleep disturbance. Objective Visit Vitals BP (!) 153/103 OB Status Implant Smoking Status Never GENERAL Normal body habitus, pleasant, cooperative Neurological Exam Mental Status Awake, alert and oriented to person, place and time. Recent and remote memory are intact. Speech is normal. Language is fluent with no aphasia. Attention and concentration are normal. Fund of knowledge is appropriate for level of education. Cranial Nerves CN II: Visual acuity is normal. Visual valencia full to confrontation. CN III, IV, : Extraocular movements intact bilaterally. Normal lids and orbits bilaterally. Pupils equal round and reactive to light bilaterally. CN V: Facial sensation is normal. CN VII: Full and symmetric facial movement. CN VIII: Hearing is normal. CN IX, X: Palate elevates symmetrically. Normal gag reflex. CN XI: Shoulder shrug strength is normal. CN XII: Tongue midline without atrophy or fasciculations. Sensory Light touch is normal in upper and lower extremities. Temperature is normal in upper and lower extremities. Vibration is normal in upper and lower extremities. Reflexes Right pathological reflexes: Crossed adductor present. Left pathological reflexes: Crossed adductor present. Coordination Right: [id number] normal. Rapid alternating movement normal.Left: [id number]-va-fogk normal. Rapid alternating movement normal. Gait Casual gait is normal including stance, stride, and arm swing. Motor Examination RUE Strength deltoid, biceps, triceps, wrist extensors, wrist extensors, wrist flexor, cutter aluminum sheet strength 5/5. LUE Strength deltoid, biceps, triceps, wrist extensors, wrist extensors, wrist flexor, cutter aluminum sheet strength 5/5. RLE Strength illopsoas, quadriceps, tibialis anterior, and gastrocnemius strength 5/5. LLE Strength illopsoas, quadriceps, tibialis anterior, and gastrocnemius strength 5/5. Tone Normal tone x4 extremities. Reflexes: RUE biceps reflex 3, brachioradialis reflex 3 LUE biceps reflex 3, brachioradialis reflex 3 RLE knee reflex 3, ankle reflex 2 LLE knee reflex 3, ankle reflex 2 Assessment and Plan 33-year-old female seen in outpatient Neurological consultation at the request of Dr. Posey for headaches. Medical history includes chronic neck pain, chronic back pain, tension type headaches, depression, and anxiety. She was started on Zonegran, Amitriptyline, Topamax Flexeril and Robaxin by Dr. Bradley with no improvement. She also has Esgic and Rizatriptan to abort the headaches but she had side effects with Rizatriptan and Esgic did not help much. WE did start her on Ajovy and she did try several doses and had a site reaction. WE will now start her on Qulipta as she has tried several classes of medication. She can have migraines several days a month to every other day. She is taking the imitrex for an abortive and this does work somewhat well. She did not realize that she could take this again in 2 hours and will try this. She does state without it she would have to call in to work about 5 times/month. She can add in some daily Mg if needed. She does have neck tightness and sounds like an ON. WE can discuss injections further at next visit. Cervical spine x-ray on 09/24/23 shows straightening of normal cervical lordosis consistent with chronic muscle spasm. MRI brain in 2021 was normal. Her headaches are most consistent with migraine headaches with a cervicogenic component. She is now working midnights for the past 8 months. She is not allowing enough hours. Sometimes she will nap before nap. She wakes up after 5 hours for no particular reason. Even when she was working day shift she had daytime hypersomnolence and did allow enough hours. Her HST did reveal a very mild ROMANA with an AHI of 5. She does tend to sleep more often supine. We are going to move forward with treating this with a mask and a machine as HST due underestimate the severity of the apnea at times and it may be a little higher. We will start her on autopap. Diagnoses and all orders for this visit: ROMANA (obstructive sleep apnea) - CPAP ORDERS Chronic migraine without aura without status migrainosus, not intractable ([facility]) - Atogepant (Qulipta) 60 MG tablet; Take one tab daily for migraine prevention Hypersomnolence PLAN: Start Qulipta 60 mg daily for migraine prevention, increase water intake to avoid any constipating effects She was given starter pack of Qulipta and coupon card She may start Mg Oxide 400 mg for prevention if needed after established on the Qulipta Continue Imitrex 100 mg for abortive therapy, may repeat in 2 hours if needed UZAIR [place] Consider botox referral She should keep a headache journal Reviewed home a sleep study We will get her set up on a machine at [facility] in [place] Consider occipital or trigger injections I counseled the patient on the possible diagnosis, prognosis, and possible treatment options. I will see the patient back in 3 months, or sooner if needed, to make further recommendations documented in this encounter [facility] 08-20-2024 History of Present illness Narrative Associated Problem(s): Annual physical exam Due for labs. Discussed proper diet and regular aerobic exercise. Need aerobic exercise 5-6 days a week for 30 minutes at a time. Smaller portions and limit total calories. Colonoscopy after age 45. Tetanus every 10 years. Advised not to smoke. Discussed daily Aspirin therapy. Images from the original note were not included. Subjective Patient ID: Paula Wild is a 33 y.o. female who presents for Follow-up (Check up). Presents for annual PE. Weight down 16 pounds in the past year. Tries to stay active and walk several days a week. Tries to watch diet and eat healthy. Increased fruits and vegetables. Smaller portions and limits snacking. Tries to limit total daily calories. Due for labs. Interested in weight loss medication. Depression and anxiety stable without medication. Still occasional symptoms and at times not want to do things or be around others. Anxiety stable. Not as stressed out or overwhelmed. Not as nervous or worry as much. Not as vargas or irritable. Review of Systems Respiratory: Negative for cough, shortness of breath and wheezing. Cardiovascular: Negative for chest pain and palpitations. Gastrointestinal: Negative for abdominal pain, diarrhea, nausea and vomiting. Genitourinary: Negative for dysuria. Objective Physical Exam Constitutional: General: She is not in acute distress. Appearance: Normal appearance. HENT: Head: Normocephalic. Right Ear: Tympanic membrane normal. Left Ear: Tympanic membrane normal. Eyes: Extraocular Movements: Extraocular movements intact. Pupils: Pupils are equal, round, and reactive to light. Cardiovascular: Rate and Rhythm: Normal rate and regular rhythm. Heart sounds: No murmur heard. No friction rub. No gallop. Pulmonary: Effort: Pulmonary effort is normal. Breath sounds: Normal breath sounds. No wheezing, rhonchi or rales. Abdominal: General: Bowel sounds are normal. There is no distension. Palpations: Abdomen is soft. Tenderness: There is no abdominal tenderness. There is no guarding or rebound. Musculoskeletal: General: No swelling or tenderness. Cervical back: Neck supple. Right lower leg: No edema. Left lower leg: No edema. Skin: Findings: No erythema or rash. Neurological: General: No focal deficit present. Mental Status: She is alert and oriented to person, place, and time. Cranial Nerves: No cranial nerve deficit. Motor: No weakness. Gait: Gait normal. Assessment/Plan Problem List Items Addressed This Visit Class 1 obesity due to excess calories without serious comorbidity with body mass index (BMI) of 32.0 to 32.9 in adult Relevant Medications Semaglutide-Weight Management (Wegovy) 0.25 MG/0.5ML solution auto-injector Annual physical exam - Primary Due for labs. Discussed proper diet and regular aerobic exercise. Need aerobic exercise 5-6 days a week for 30 minutes at a time. Smaller portions and limit total calories. Colonoscopy after age 45. Tetanus every 10 years. Advised not to smoke. Discussed daily Aspirin therapy. Relevant Orders Hemoglobin A1c Basic metabolic panel CBC and differential Hepatic function panel Lipid panel TSH W/REFLEX TO FT4 documented in this encounter [facility] 03-09-2024 History of Present illness Narrative Associated Problem(s): Bacterial pneumonia Recent pneumonia but improved with treatment. Warned cough may last another 4-6 weeks. Use OTC PRN. Will complete short-term disability paperwork for 02/17-02/22 and returned 02/23. Images from the original note were not included. Subjective Patient ID: Paula Wild is a 33 y.o. female who presents for Follow-up (Er f/u). Follow up from urgent care and ER for pneumonia. Developed cough, congestion and rhinorrhea. To urgent care 02/17 and told viral. Given medrol and albuterol. Symptoms worsened and increased SOB. Chest tight and hard to catch breath. Temp 102.5. To ER and chest x-ray with pneumonia. Given zithromax and prednisone and improved. Much better today. Mild cough but no SOB. Afebrile. Patient was off work 02/17-02/22 and returned 02/23. Review of Systems Respiratory: Negative for cough, shortness of breath and wheezing. Cardiovascular: Negative for chest pain and palpitations. Gastrointestinal: Negative for abdominal pain, diarrhea, nausea and vomiting. Genitourinary: Negative for dysuria. Objective Physical Exam Constitutional: General: She is not in acute distress. Appearance: Normal appearance. HENT: Head: Normocephalic. Right Ear: Tympanic membrane normal. Left Ear: Tympanic membrane normal. Eyes: Extraocular Movements: Extraocular movements intact. Pupils: Pupils are equal, round, and reactive to light. Cardiovascular: Rate and Rhythm: Normal rate and regular rhythm. Heart sounds: No murmur heard. No friction rub. No gallop. Pulmonary: Effort: Pulmonary effort is normal. Breath sounds: Normal breath sounds. No wheezing, rhonchi or rales. Abdominal: General: Bowel sounds are normal. There is no distension. Palpations: Abdomen is soft. Tenderness: There is no abdominal tenderness. There is no guarding or rebound. Musculoskeletal: Cervical back: Neck supple. Right lower leg: No edema. Left lower leg: No edema. Neurological: Mental Status: She is alert. Assessment/Plan Problem List Items Addressed This Visit Bacterial pneumonia - Primary Recent pneumonia but improved with treatment. Warned cough may last another 4-6 weeks. Use OTC PRN. Will complete short-term disability paperwork for 02/17-02/22 and returned 02/23. documented in this encounter [facility] 02-21-2024 Hospital Discharge instructions Additional Instructions Take the antibiotic azithromycin as prescribed to completed Continue the prednisone tomorrow once a day for 4 days Use the albuterol inhaler 2 puffs every 4-6 hours for wheezing cough shortness of breath Take the Bromfed-DM every 4-6 hours for cough congestion runny nose Increase oral fluids especially water Humidifier at bedside may also help Follow-up with family doctor as needed Return to the ER for worsening shortness of breath high fever chest pain or any other concerns [facility] Work Phone: 12-16-2023 Evaluation note Diagnosis Onset Date Resolution Acute nasopharyngitis acute Dec 4:48pm Viral bronchitis acute February 18, 2024 9:49am Contact with or suspected exposure to severe acute respiratory syndrome noneactive February 172023 9:49am [facility] Work Phone: [phone] 607-270107-29-2024 History of Present illness Narrative* JOE WoodsT - 11/03/2023 3:30 PM EDT Reason for Appointment: HST Patient: Paula Wild : 1990 Reason for Home Sleep Study: Sleep disturbances Ordering Physician: Miladis Kirk [facility] Market Research Analyst: Madhu RODRIGEZ(R) Pick-up Comments: Procedure was explained to the patient who expressed understanding. Patient was instructed how to use device and informed to return completed questionnaire with device tomorrow morning...... 11/03/23 Market Research Analyst: Madhu RODRIGEZ(R) Drop-Off Comments: Patient returned HST device. Study data was successfully uploaded and completed questionnaire was imported to patient's chart....... 11/04/23 Impression: Patient does have minimal obstructive sleep apnea with an AHI of 5. Patient may benefit from treatment if has significant hypersomnia. Aggressive weight loss measures may have be of benefit also. If needed the patient can be started on auto PAP at 5-15 cm of water. [id number] Evaluation note* Encounter Date Diagnosis Assessment Notes Treatment Notes Treatment Clinical Notes Sep, Sore throat (ICD-10 - J02.9) [...] understanding and is agreeable to treatment plan [facility] Other 08-05-2022 NoteOPERATIVE NOTE OPERATION DATE: 11/09/2021 PROCEDURE: LEEP with top hat. PREOPERATIVE DIAGNOSIS: Cervical dysplasia. POSTOPERATIVE DIAGNOSIS: Cervical dysplasia. ANESTHESIA: General. SURGEON: Jan Killian D.O. PARTS CONSULTANT: None. FINDINGS: Cervical dysplasia at the 9 [...] was taken to Recovery Room in stable condition.[facility] noteNo assessment information availablePromedica [facility] Work Phone: Evaluation note* Diagnosis Chronic tension-type headache, not intractable- Primary Chronic tension type headache Chronic neck pain Cervicalgia Chronic right-sided low back pain with right-sided sciatica MDD (major depressive disorder), recurrent episode, moderate (CMS/HCC)- Primary MARY ANN (generalized anxiety disorder) (CMS/HCC) Generalized anxiety disorder Chronic tension-type headache, not intractable Chronic tension type headache Chronic neck pain Cervicalgia Obesity (BMI 30-39.9) MDD (major depressive disorder), recurrent episode, moderate (CMS/HCC)- Primary MARY ANN (generalized anxiety disorder) (CMS/HCC) Generalized anxiety disorder Elevated blood pressure reading in office without diagnosis of hypertension Chronic neck pain Cervicalgia Eustachian tube dysfunction, bilateral Chronic migraine without aura without status migrainosus, not intractable (CMS/HCC) Bacterial pneumonia- Primary Unspecified bacterial pneumonia documented in this encounter [facility]* Diagnosis Chronic migraine without aura without status migrainosus, not intractable (CMS/HCC) Snoring Other dyspnea and respiratory abnormality Hypersomnolence Hypersomnia, unspecified documented in this encounter [facility]* Diagnosis Chronic tension-type headache, not intractable- Primary Chronic tension type headache Chronic neck pain Cervicalgia Chronic right-sided low back pain with right-sided sciatica MDD (major depressive disorder), recurrent episode, moderate (CMS/HCC)- Primary MARY ANN (generalized anxiety disorder) (CMS/HCC) Generalized anxiety disorder Chronic tension-type headache, not intractable Chronic tension type headache Chronic neck pain Cervicalgia Obesity (BMI 30-39.9) MDD (major depressive disorder), recurrent episode, moderate (CMS/HCC)- Primary MARY ANN (generalized anxiety disorder) (CMS/HCC) Generalized anxiety disorder Elevated blood pressure reading in office without diagnosis of hypertension Chronic neck pain Cervicalgia Eustachian tube dysfunction, bilateral Chronic migraine without aura without status migrainosus, not intractable (CMS/HCC) Annual physical exam- Primary Routine general medical examination at a health care facility Class 1 obesity due to excess calories without serious comorbidity with body mass index (BMI) of 32.0 to 32.9 in adult documented in this encounter [facility]* Diagnosis Chronic tension-type headache, not intractable- Primary Chronic tension type headache Chronic neck pain Cervicalgia Chronic right-sided low back pain with right-sided sciatica MDD (major depressive disorder), recurrent episode, moderate (CMS/HCC)- Primary MARY ANN (generalized anxiety disorder) (CMS/HCC) Generalized anxiety disorder Chronic tension-type headache, not intractable Chronic tension type headache Chronic neck pain Cervicalgia Obesity (BMI 30-39.9) MDD (major depressive disorder), recurrent episode, moderate (CMS/HCC)- Primary MARY ANN (generalized anxiety disorder) (CMS/HCC) Generalized anxiety disorder Elevated blood pressure reading in office without diagnosis of hypertension Chronic neck pain Cervicalgia Eustachian tube dysfunction, bilateral Chronic migraine without aura without status migrainosus, not intractable (CMS/HCC) Annual physical exam- Primary Routine general medical examination at a health care facility Class 1 obesity due to excess calories without serious comorbidity with body mass index (BMI) of 32.0 to 32.9 in adult ROMANA (obstructive sleep apnea)- Primary Obstructive sleep apnea (adult) (pediatric) Chronic migraine without aura without status migrainosus, not intractable ([facility]) Hypersomnolence Hypersomnia, unspecified [facility] N[facility] - Reported* Type Description Date Surgical History appendectomy Surgical History hernia repair Surgical History ablasion cervical [facility] Other Summary Purpose Family History Relationship Condition Age at Onset Recorded Date/T tarun father Diabetes mellitus Unknown Hypertension Unknown Not Specified Heart disease Unknown Unknown Malignant neoplasm Unknown Relationship Condition Age at Onset Recorded Date/T tarun father Diabetes mellitus Unknown Hypertension Unknown mother Heart disease Unknown Unknown Malignant neoplasm Unknown Advance Directives Advance Directive Response Recorded Date/ Time Advance Directives No June 28 9:08am Advance Directive Response Recorded Date/ Time Advance Directives No June 28 8:08am Chief Complaint and Reason for Visit Chief Complaint Left earache Chief Complaint m54.2 g89.29 Sore throat Chief Complaint Admit Date Sore throat December 16, 2023 4:48pm Cough, congestion February 18, 2024 9:49am Reason for Visit Admit Date Acute nasopharyngitis December 15 4:48pm Viral bronchitis February 18, 2024 9:49am Contact with or suspected ex posure to severe acute respiratory syndrome February 18, 2024 9:49am Chief Complaint Admit Date Sore throat December 16, 2023 4:48pm Cough, congestion February 18, 2024 9:49am cough, chills, fever February 21, 2024 12:58pm Chief Complaint Admit Date Ear pain July 16, 2024 12: 22pm Additional Source Comments INFORMATION SOURCE (unrecogn ized section and content) DATE CREATED AUTHOR 07/11/2022 [facility] DATE CREATED AUTHOR AUTHOR'S ORGANIZ ATION 11/05/2023 [facility] EPIC DATE CREATED AUTHOR AUTHOR'S ORGANIZ ATION 03/03/2024 [facility] DATE CREATED AUTHOR AUTHOR'S ORGANIZ ATION 09/04/2024 [facility] EPIC REASON FOR VISIT (unrecogniz ed section and content) Reason Comments Follow-up Er f/u Reason Comments Follow-up Check up Reason Comments Migraine Care Teams (unrecognized sec tion and content) Team Status: Active Member Role Status Dates Alek Posey MD Primary Care Provider Active Team Status: Inactive Member Role Status Dates Nola Ayala NP-C Attending Provider Active S tart: July 21, 2023 End: July 21, 2023 Alek Posey MD Primary Care Provider Active S tart: July 21, 2023 End: July 21, 2023 Team Status: Inactive Member Role Status Dates Alek Posey MD Primary Care Provide r, Attending Provider Active Start: September 24, 2023 End: September 24, 2023 Team Status: Active Member Role Status Dates Alek Posey MD Primary Care Provider Active S tart: November 03, 2023 Yousuf Danielson DO Attending Provider Active Sta rt: November 03, 2023 Team Status: Inactive Member Role Status Dates Alek Posey MD Primary Care Provider Active S tart: December 16, 2023 End: December 16, 2023 Chary Gerard APRN Attending Provider Active Start: December 16, 2023 End: December 16, 2023 Team Status: Inactive Member Role Status Dates Alek Posey MD Primary Care Provider Active S tart: February 18, 2024 End: February 18, 2024 Roxie Nuno APRN Attending Provider Active S tart: February 18, 2024 End: February 18, 2024 Team Status: Inactive Member Role Status Dates Alek Posey MD Primary Care Provider Active S tart: February 21, 2024 End: February 21, 2024 Lanie Louis [facility] Emergency Provider Active Start: February 21, 2024 End: February 21, 2024 [employer]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 Start Date End Date Alek Posey MD [address] [place] [address] PCP - [employer] 07/07/23 Alek Posey MD [address] [place] [address] PCP - General Family Medicine 08/25/23 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 Specialty Start Date End Date Alek Posey MD [address] [place] [id number] PCP - [employer] 07/07/23 Alek Posey MD [address] [place] [id number] PCP - General Family Medicine 08/25/23 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 Specialty Start Date End Date Alek Posey MD [address] [place] [id number] PCP - [employer] 07/07/23 Alek Posey MD [address] [place] [id number] PCP - General Family Medicine 08/25/23 Team Status: Inactive Member Role Status Dates Alek Posey MD Primary Care Provider Active S tart: July 16, 2024 End: July 16, 2024 Chary Gerard APRN Attending Provider Active Start: July 16, 2024 End: July 16, 2024 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 Specialty Start Date End Date Alek Posey MD [address] [place] [phone] PCP - [employer] 07/07/23 Alek Posey MD [address] [place] [phone] PCP - General Family Medicine 08/25/23 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 Specialty Start Date End Date Alek Posey MD [address] [place] [phone] [facility] 07/07/23 Alek Posey MD [address] [place] [phone] [facility] 08/25/23 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 Specialty Start Date End Date Alek Posey MD [address] [place] [phone] [facility] 07/07/23 Alek Posey MD [address] [place] [phone] [facility] 08/25/23 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 Specialty Start Date End Date Alek Posey MD [address] [place] [phone] [facility] 07/07/23 Alek Posey MD [address] [place] [phone] [facility] 08/25/23 Goals (unrecognized section and content) Goals may [...] BE BASED ON THE PRIMARY CLINICAL RECORDS. [employer] [facility]. provides no warranty or guarantee of the accuracy or completeness of information in this document.
[2024-10-12 16:08] LABS: Age Gdln ACOG Testing Note (.); IGP, Aptima HPV, rfx 16/18,45 Note (.)
== END 2024-10-06 19:32 | disposition home or self-care (01) ==
LOC: LAB 19:31
PROVIDERS: PCP Family Medicine; Visit Provider Obstetrics & Gynecology
DX: Z01.419 Encounter for gynecological examination (general) (routine) without abnormal findings (principal)
CPT/HCPCS: 87624; 88175